=== PATIENT | female | born 1935 | race Caucasian/White ===

== ENCOUNTER 2017-06-13 23:13 | Inpatient (IN) | payer OTHER ==
[~2017-06-13] VITALS: Ht 165.1 cm; Wt 64.9 kg
[~2017-06-13 23:13] MED LIST: ALPR0.5T6 PO; ASPI-612 PO; ATOR20TA58 PO; FAMO20TA5 PO; GABA-585 PO; GARL400T PO; LOSA100T6 PO; METO-269 PO; PROAIR HFA8.5 GM INH; UBID1CAP41 PO; VITA1TAB19 PO
[2017-06-13 23:34] LABS: BASO # 0.1 x10^3/uL (0.0-0.2); BASO % 1 % (0-3); EOS % 2 % (0-3); HEMATOCRIT 40.8 % (36.0-47.0); HEMOGLOBIN 13.7 g/dL (12.0-15.5); LYMPH # 1.5 x10^3/uL (1.0-4.8); LYMPH % 27 % (24-48); MEAN CORPUSCULAR HEMOGLOBIN 32 pg (25-35); MEAN CORPUSCULAR HGB CONC 34 g/dL (31-37); MEAN CORPUSCULAR VOLUME 94 fL (79-100); MONO % 12 % (0-9); NEUT % 58 % (31-73); PLATELET COUNT 252 x10^3/uL (140-400); RED BLOOD COUNT 4.34 x10^6/uL (3.50-5.40); RED CELL DISTRIBUTION WIDTH 13.9 % (11.5-14.5); WHITE BLOOD COUNT 5.3 x10^3/uL (4.0-11.0)
[2017-06-13 23:48] LABS: CALCIUM 9.2 mg/dL (8.5-10.1); CREATININE 0.9 mg/dL (0.6-1.0); GFR 59.9; POTASSIUM 4.1 mmol/L (3.5-5.1)
[2017-06-13 23:54] LABS: ALBUMIN 3.9 g/dL (3.4-5.0); ALBUMIN/GLOBULIN RATIO 1.1 (1.0-1.7); TOTAL BILIRUBIN 0.4 mg/dL (0.2-1.0); TOTAL PROTEIN 7.6 g/dL (6.4-8.2)
[2017-06-14] MEDS ORDERED: ONDANSETRON PF 4 MG/2 ML VIAL. ONE (00:09)
[2017-06-14] MEDS ORDERED: ONDANSETRON PF 4 MG/2 ML VIAL. IV ONE (00:30)
[2017-06-14] MEDS ORDERED: ACETAMINOPHEN 325 MG TABLET. PO PRN (01:30)
[2017-06-14] MEDS ORDERED: MORPHINE SULFATE 2 MG/ML DISP.SYRIN. IV PRN (01:30)
[2017-06-14] MEDS ORDERED: ONDANSETRON PF 4 MG/2 ML VIAL. IV PRN (01:30)
[2017-06-14] MEDS ORDERED: NITROGLYCERIN SUBLINGUAL 0.4 MG BOTTLE OF 25. SL PRN (01:30)
[2017-06-14] MEDS ORDERED: ONDA4TAB10 SL (02:40)
--- NOTE | 2017-06-14 02:41 | PHYS DOC ---
Past Medical History Past Medical History: Anxiety, Cancer, High Cholesterol, Hypertension, NE, Other Additional Past Medical Histor: uterine cancer, renal insufficiency, Past Surgical History: Hysterectomy, Other Additional Past Surgical Histo: PTCA W/ STENTS X3 2008 Alcohol Use: None Drug Use: None Adult General Chief Complaint Chief Complaint: CHEST PAIN HPI HPI Patient is a 81 year old female with history significant for coronary artery disease in the past presents here today complaining of midsternal chest pressure. She reports that it started approximately 10 PM it's been intermittent in nature. She reports that started while she was folding close. Patient reports associated shortness of breath. Patient has any radiating pain nausea vomiting. Patient denies any diaphoresis. Patient has any fevers shakes chills. Patient reports her last heart attack her symptoms were only vomiting at that time. Patient reports she does not smoke drink or do any drugs. Patient reports she has a history of hypertension coronary disease. Patient has any diabetes liver longer kidney problems. Patient reports she had an NE back in 1999 and has had 3 stents. Patient reports she's had GI problems in the past with nausea that she is scheduled for a endoscopy by . Constitutional: Denies fever or chills [] Eyes: Denies change in visual acuity, redness, or eye pain [] HENT: Denies nasal congestion or sore throat [] All other review systems are negative except as documented in the history of present illness portion. Constitutional: Well developed, well nourished, no acute distress, non-toxic appearance. [] HENT: Normocephalic, atraumatic, bilateral external ears normal, oropharynx moist, no oral exudates, nose normal. [] Eyes: PERRLA, EOMI, conjunctiva normal, no discharge. [] Neck: Normal range of motion, no tenderness, supple, no stridor. [] Cardiovascular:Heart rate regular rhythm, Lungs & Thorax: Bilateral breath sounds clear to auscultation [] Abdomen: Bowel sounds normal, soft, no tenderness, no masses, no pulsatile masses. [] Skin: Warm, dry, no erythema, no rash. [] Back: No tenderness, no CVA tenderness. [] Extremities: No tenderness, no cyanosis, no clubbing, ROM intact, no edema. [] Neurologic: Alert and oriented X 3, normal motor function, normal sensory function, no focal deficits noted. [] Psychologic: Affect normal, judgement normal, mood normal. [] Patient's ER hospital course was significant for normal labs. Normal EKG. Chest x-ray was unremarkable. EKG revealed normal sinus rhythm with nonspecific ST-T wave abnormalities with no evidence of ST elevation NE. Revealed normal heart size no infiltrates or effusions. Interpreted by Dr. Osei. Troponin CBC chemistry all within normal limits. Assessment and plan. This is a 7-year-old female who presents here today with anginal type symptoms. Patient has a significant cardiac history. Despite normal labs and feel the patient needs to be admitted for further cardiac evaluation. I had a long discussion with the patient and she has initially agreed to be admitted to the hospital however at 2:30 AM the patient change her mind informed the nurse that she wants to be discharged and will sign out AGAINST MEDICAL ADVICE. She is requesting a prescription for Zofran which we will supply for her. Current Medications Current Medications Current Medications Medications (Trade) Dose Ordered Sig/Bo Start Time Stop Time Status Last Admin Dose Admin Ondansetron HCl (Zofran) 4 mg STK-MED ONCE 06/14/17 00:09 06/14/17 00:10 DC Allergies Allergies Allergies Coded Allergies Type Severity Reaction Last Updated Verified codeine Allergy Intermediate 09/22/16 Yes Current Patient Data Vital Signs Vital Signs Date Time Temp Pulse Resp B/P (MAP) Pulse Ox O2 Delivery O2 Flow Rate FiO2 06/14/17 00:42 66 141/80 (100) 96 Room Air 06/13/17 23:19 97.5 20 97.5 Lab Values Laboratory Tests Test 06/13/17 23:23 White Blood Count 5.3 x10^3/uL (4.0-11.0) Red Blood Count 4.34 x10^6/uL (3.50-5.40) Hemoglobin 13.7 g/dL (12.0-15.5) Hematocrit 40.8 % (36.0-47.0) Mean Corpuscular Volume 94 fL (79-100) Mean Corpuscular Hemoglobin 32 pg (25-35) Mean Corpuscular Hemoglobin Concent 34 g/dL (31-37) Red Cell Distribution Width 13.9 % (11.5-14.5) Platelet Count 252 x10^3/uL (140-400) Neutrophils (%) (Auto) 58 % (31-73) Lymphocytes (%) (Auto) 27 % (24-48) Monocytes (%) (Auto) 12 % (0-9) H Eosinophils (%) (Auto) 2 % (0-3) Basophils (%) (Auto) 1 % (0-3) Neutrophils # (Auto) 3.1 x10^3uL (1.8-7.7) Lymphocytes # (Auto) 1.5 x10^3/uL (1.0-4.8) Monocytes # (Auto) 0.7 x10^3/uL (0.0-1.1) Eosinophils # (Auto) 0.1 x10^3/uL (0.0-0.7) Basophils # (Auto) 0.1 x10^3/uL (0.0-0.2) Sodium Level 135 mmol/L (136-145) L Potassium Level 4.1 mmol/L (3.5-5.1) Chloride Level 98 mmol/L (98-107) Carbon Dioxide Level 28 mmol/L (21-32) Anion Gap 9 (6-14) Blood Urea Nitrogen 16 mg/dL (7-20) Creatinine 0.9 mg/dL (0.6-1.0) Estimated GFR (Cockcroft-Gault) 59.9 BUN/Creatinine Ratio 18 (6-20) Glucose Level 114 mg/dL (70-99) H Calcium Level 9.2 mg/dL (8.5-10.1) Total Bilirubin 0.4 mg/dL (0.2-1.0) Aspartate Amino Transferase (AST) 21 U/L (15-37) Alanine Aminotransferase (ALT) 20 U/L (14-59) Alkaline Phosphatase 99 U/L (46-116) Troponin I Quantitative < 0.017 ng/mL (0.000-0.055) PS-Ohp-W-Type Natriuretic Peptide 160 pg/mL (0-449) Total Protein 7.6 g/dL (6.4-8.2) Albumin 3.9 g/dL (3.4-5.0) Albumin/Globulin Ratio 1.1 (1.0-1.7) Laboratory Tests 06/13/17 23:23 Laboratory Tests 06/13/17 23:23 EKG EKG [] Radiology/Procedures Radiology/Procedures [] Course & Med Decision Making Course & Med Decision Making Pertinent Labs and Imaging studies reviewed. (See chart for details) [] Dragon Disclaimer Dragon Disclaimer This electronic medical record was generated, in whole or in part, using a voice recognition dictation system. Departure Departure Impression: Primary Impression: Chest pain Additional Impressions: Nausea Unstable angina Disposition: ADMITTED INPATIENT Admitting Physician: Aleyda Ram Condition: STABLE Referrals: NATALIE KENNEY MD (PCP) Patient Instructions: Angina Scripts Ondansetron (ZOFRAN ODT) 4 Mg Tab.rapdis 1 TAB SL Q6HRS Y for NAUSEA, #12 TAB Prov: ELEUTERIO TIWARI MD 06/14/17 Problem Qualifiers ELEUTERIO TIWARI MD Jun 14, 2017 02:40
[2017-06-14 03:00] VITALS: BP 159/91
[2017-06-14] MEDS ORDERED: FURO20TA3 PO (03:36)
[2017-06-14] MEDS ORDERED: MAGN400C PO (03:36)
--- NOTE | 2017-06-14 06:15 | ACF ---
Admission Forms Criteria CHEST PAIN Clinical Indications for Admission to Inpatient Care (Place 'X' for any and all applicable criteria): Admission is indicated for chest pain and ANY ONE of the following(1)(2)(3)(4)(5 ): [ ]I. Angina with acute coronary syndrome (Also use Myocardial Infarction or Angina guideline) [ ]II. Hemodynamic instability [ ]III. Angina needing acute intervention as indicated by ALL of the following( 11)(12): [ ]a) Unstable angina is present as indicated by angina that is ANY ONE of the following: [ ]i) New onset [ ]ii) Nocturnal [ ]iii) Prolonged at rest [ ]iv) Progressive [ ]b) Angina warrants acute intervention as indicated by ANY ONE of the following: [ ]i) Recurrent angina (e.g, not responding as previously to treatment) [ ]ii) Angina at rest or with low-level activities despite initial medical therapy [ ]iii) New or presumably new ST-segment depression on ECG [ ]iv) Signs or symptoms of heart failure (eg, dyspnea, pulmonary edema) [ ]v) New or worsening mitral regurgitation [ ]vi) Hemodynamic instability [ ]vii) Dangerous arrhythmia (eg, sustained ventricular tachycardia) [ ]viii) History of percutaneous coronary intervention within 6 months [ ]ix) History of coronary artery bypass graft surgery [ ]x) MARLEE risk score of 2 or greater[A] [ ]xi) History of Diabetes(14) [ ]xii) High-risk cardiac ischemia findings on noninvasive testing (e.g, echocardiogram, treadmill testing, nuclear scan) [ ]xiii) Chronic renal insufficiency (ie, estimated GFR less than 60 mL/min/1.732m) [ ]xiv) Left ventricular ejection fraction less than 40% [ ]IV. Evidence of GA (eg, cardiac biomarkers positive, ST-segment elevation on ECG) also use Myocardial Infarction Criteria Form. [ ]V. Pulmonary edema [ ]. Respiratory distress [ ]VII. Chest pain indicative of serious diagnosis other than coronary artery disease (eg, aortic dissection) [ ]VIII. Contraindications and/or Inappropriate clinical situations for Observational Care in patients with Chest Pain, when ANY ONE of the following is required: [ ]a) Patient with risk factor for pulmonary embolism, acute coronary syndrome and myocardial infarction (18) [ ]b) Patient with Pulmonary embolism require an average LOS of 4.3 days, therefore emergency department observation management is inappropriate 18,23 [ ]c) Painful condition/s in the elderly, have the highest rate of recidivism after emergency department observation management (10.8%) 20,21,22 [ ]d) Elevated cardiac biomarker requires intensive and exhaustive care (19) [X]IX. General contraindications and/or Inappropriate clinical situations for Observational Care in patients with Chest Pain, when ANY ONE of the following is required: [X]a) Prediction of prolongation of LOS based on ANY ONE of the following may be considered as a contraindication for observational care 2, 3, 4, 5, 6, 7, 8, 9, 10, 11 [X]i) Age > 65 yrs. [ ]ii) Patient arriving by ambulance [ ]iii) Patient with high acuity [ ]iv) Patient requiring vital sign monitoring [ ]v) Patient on IV medication [ ]b) Systolic blood pressures 180mmHg 3,12 [ ]c) Patient with altered mental status including delirium and other alteration of consciousness, (3) [ ]d) Patient whose discharge disposition will be to a long term home or rehabilitation home should not be managed in Emergency Department Observation Unit. CMS rule requires 3 days hospital stay before such placement. 3,13 [ ]e) Patient with failure to thrive due to broad array of etiologies 3,16,17 [ ]f) Inability to ambulate 3,14 Extended stay beyond goal length of stay may be needed for (1)(28): [ ]a) Specific condition diagnosed after evaluation (eg, pulmonary embolism, aortic dissection) [ ]b) Unstable angina [ ]c) Continued suspicion of acute coronary syndrome with inability to complete needed cardiac evaluation (eg, patient clinically unable to undergo stress testing) [ ]d) Myocardial infarction (Contents from ANGINA and CHEST PAIN clinical indications for admission to inpatient care have been integrated in this form) The original [facility] content created by [employer] has been revised. The portions of the content which have been revised are identified through the use of italic text or in bold, and [employer] [facility] has neither reviewed nor approved the modified material. All other unmodified content is copyright [employer] [facility] [facility]. Please see references footnoted in the original [facility] [employer] edition 2016 Admission Criteria Met?: Yes SHEKHAR SAUL Jun 14, 2017 06:15
--- NOTE | 2017-06-14 06:48 | EKG ---
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
[2017-06-14 07:00] VITALS: BP 142/73
--- NOTE | 2017-06-14 07:58 | RAD ---
Portable chest, 06/13/2017: History: Chest pain Comparison is made to a study from 09/20/2016. The heart size is normal. There are prominent calcified mediastinal and hilar lymph nodes. There is calcific plaquing of the aorta. There appears to be a coronary artery stent projected over the right side of the heart. The pulmonary vascularity is normal. A calcified granuloma is present in the right upper chest. There is mild unchanged prominence of the pulmonary markings probably due to fibrosis. No acute infiltrates are seen. There is no evidence of pleural fluid. IMPRESSION: 1. Chronic findings as described above. 2. No acute cardiopulmonary abnormality is detected.
--- NOTE | 2017-06-14 09:14 | PDOC2 ---
GISELLA MCNAIR INSURANCE ADMINISTRATIVE ASSISTANT 06/14/17 0914: CARDIAC CONSULT DATE OF CONSULT Date of Consult DATE: 06/14/17 TIME: 09:09 REASON FOR CONSULT Reason for Consult: Chest pain REFERRING PHYSICIAN Referring Physician: Aj SOURCE Source: Chart review, Patient HISTORY OF PRESENT ILLNESS HISTORY OF PRESENT ILLNESS This is an anxious 81 yo female admitted for complains of persistent nausea. Reports that in the last 3 weeks she has been having intermittent nausea and the last time she vomited was Monday. There was no hematemesis. She has been compensating with increasing her fluid intake. Repeatedly denies having any chest pain but her bilateral lower rib cage area hurts sometimes. She has been intermittently retching. She does howevere have been having episodes of dizziness when upright and even on occasion when she bends over and stand back up. sometimes almost passing out. She has been feeling weak but her pappetite has not been up to par due to her nausea. She has been having episodes to which she feels like her food has not been going down completely. She does have some JOSE but to her description this has not change and this has been her baseline ever since she had her past heart attack. Presently she is anxious and worried that she got a [id number] bill from her previous stay. Denies any recent falls, injury, syncope, tinnitus, or palpitations. PAST MEDICAL HISTORY Past Medical History Cardiovascular: CAD, HTN, Hyperlipidemia Pulmonary: COPD CENTRAL NERVOUS SYSTEM: Migraine GI: GERD Heme/Onc: Cancer (uterine) Psych: Anxiety Musculoskeletal: Osteoarthritis Rheumatologic: No pertinent hx Infectious disease: No pertinent hx ENT: No pertinent hx Renal/: No pertinent hx Endocrine: No pertinent hx Dermatology: Basal cell PAST SURGICAL HISTORY Past Surgical History Mohs surgery, Nasal Reconstructive Surgery, PCI/stent x3 10 yrs ago, Hysterectomy FAMILY HISTORY Family History noncontributory SOCIAL HISTORY Social History Smoke: No ALCOHOL: none Drugs: None Lives: Alone CURRENT MEDICATIONS CURRENT MEDICATIONS Current Medications Medications (Trade) Dose Ordered Sig/Bo Route PRN Reason Start Time Stop Time Status Last Admin Dose Admin Ondansetron HCl (Zofran) 4 mg 1X ONCE IV 06/14/17 00:30 06/14/17 00:31 DC 06/14/17 00:12 Ondansetron HCl (Zofran) 4 mg PRN Q8HRS PRN IV NAUSEA/VOMITING 06/14/17 01:30 06/15/17 01:29 06/14/17 05:28 ALLERGIES ALLERGIES: Coded Allergies: codeine (Verified Allergy, Intermediate, 09/22/16) ROS Review of System 14 point ROS evaluated with pertinent positives noted per HPI PHYSICAL EXAM General: Alert, Oriented X3, Cooperative, No acute distress HEENT: Atraumatic, Mucous membr. moist/pink Lungs: Clear to auscultation, Normal air movement Heart: Regular rate (SR), Normal S1, Normal S2, Other Abdomen: Soft, No tenderness Extremities: No cyanosis, Other Skin: No breakdown, No significant lesion Neuro: Normal speech, Sensation intact Psych/Mental Status: Mental status NL, Mood NL MUSCULOSKELETAL: Osteoarthritic changes both hands VITALS VITALS Vital Signs Date Time Temp Pulse Resp B/P (MAP) Pulse Ox O2 Delivery O2 Flow Rate FiO2 06/14/17 07:00 97.7 69 18 142/73 (96) 97 Room Air 97.7 LABS Lab: Laboratory Tests Test 06/13/17 23:23 06/14/17 07:40 White Blood Count 5.3 x10^3/uL (4.0-11.0) Red Blood Count 4.34 x10^6/uL (3.50-5.40) Hemoglobin 13.7 g/dL (12.0-15.5) Hematocrit 40.8 % (36.0-47.0) Mean Corpuscular Volume 94 fL (79-100) Mean Corpuscular Hemoglobin 32 pg (25-35) Mean Corpuscular Hemoglobin Concent 34 g/dL (31-37) Red Cell Distribution Width 13.9 % (11.5-14.5) Platelet Count 252 x10^3/uL (140-400) Neutrophils (%) (Auto) 58 % (31-73) Lymphocytes (%) (Auto) 27 % (24-48) Monocytes (%) (Auto) 12 % (0-9) Eosinophils (%) (Auto) 2 % (0-3) Basophils (%) (Auto) 1 % (0-3) Neutrophils # (Auto) 3.1 x10^3uL (1.8-7.7) Lymphocytes # (Auto) 1.5 x10^3/uL (1.0-4.8) Monocytes # (Auto) 0.7 x10^3/uL (0.0-1.1) Eosinophils # (Auto) 0.1 x10^3/uL (0.0-0.7) Basophils # (Auto) 0.1 x10^3/uL (0.0-0.2) Sodium Level 135 mmol/L (136-145) Potassium Level 4.1 mmol/L (3.5-5.1) Chloride Level 98 mmol/L (98-107) Carbon Dioxide Level 28 mmol/L (21-32) Anion Gap 9 (6-14) Blood Urea Nitrogen 16 mg/dL (7-20) Creatinine 0.9 mg/dL (0.6-1.0) Estimated GFR (Cockcroft-Gault) 59.9 BUN/Creatinine Ratio 18 (6-20) Glucose Level 114 mg/dL (70-99) Calcium Level 9.2 mg/dL (8.5-10.1) Total Bilirubin 0.4 mg/dL (0.2-1.0) Aspartate Amino Transf (AST/SGOT) 21 U/L (15-37) Alanine Aminotransferase (ALT/SGPT) 20 U/L (14-59) Alkaline Phosphatase 99 U/L (46-116) Troponin I Quantitative < 0.017 ng/mL (0.000-0.055) < 0.017 ng/mL (0.000-0.055) FE-Gle-V-Type Natriuretic Peptide 160 pg/mL (0-449) Total Protein 7.6 g/dL (6.4-8.2) Albumin 3.9 g/dL (3.4-5.0) Albumin/Globulin Ratio 1.1 (1.0-1.7) ECHOCARDIOGRAM ECHOCARDIOGRAM <Conclusion> The left ventricular systolic function is normal. The Ejection Fraction is estimated at 55-60%. There is normal LV segmental wall motion. Trace to mild mitral regurgitation. Trace tricuspid regurgitation. The PA pressure was estimated at 26 mmHg. There is no evidence of significant pericardial effusion. DATE: 06/12/16 1235 STRESS TEST STRESS TEST Conclusion 1. No EKG evidence of stressed induced ischemia. 2. Nuclear imaging shows no reversible ischemia or infarct. 3. Normal left ventricular systolic function with an ejection fraction of 67%. 4. Low risk Lexiscan nuclear stress test. DATE: 09/22/16 1452 ASSESSMENT/PLAN ASSESSMENT/PLAN 1. Atypical chest pain: lower rib cage discomfort from retching. Noncardiac. Recent MPI neg. 2. Persistent nausea with possible esophageal stricture: due for EGD 06/[address] Jayme Marcus 3. Presyncope: likely vasovagal episode. No vertigo. No bradycardia episodes. 4. Pulmonary fibrosis? 5. HTN: controlled 6. HLP 7. CAD: PCI/stent in the past. 8. GERD 9. Anxiety Recommendations 1. No further cardiac workup 2. Will consider for outpt event monitor if pt agrees. 3. Consider GI consult. 4. Continue home secondary prevention measures Problems: CASH ROSS MD 06/14/17 2221: CARDIAC CONSULT ALLERGIES ALLERGIES: Coded Allergies: codeine (Verified Allergy, Intermediate, 09/22/16) ASSESSMENT/PLAN ASSESSMENT/PLAN Pt. seen and examined. 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 81 y.o w/ non-cardiac chest pain. Ok to DC from CV perspective. Problems: GISELLA MCNAIR APRN Jun 14, 2017 09:14 CASH ROSS MD Jun 14, 2017 22:21
[2017-06-14 09:58] LABS: CHOLESTEROL/HDL RATIO 2.2
[2017-06-14] MEDS ORDERED: ONDANSETRON ODT 4 MG TAB.RAPDIS. PO PRN (10:45)
[2017-06-14] MEDS ORDERED: NON FORMULARY ITEM (Albuterol Sulfate (Proair Hfa Inhaler) 2 PUFF) INH PRN (10:45)
[2017-06-14 10:56] VITALS: BP 168/74
[2017-06-14] MEDS ORDERED: ALPRAZolam 0.5 MG TABLET PO SCH (11:00)
[2017-06-14] MEDS ORDERED: ALBUTEROL SULFATE 2.5 MG/3 ML NEBU. NEB PRN (11:00)
[2017-06-14] MEDS: METOPROLOL SUCC 24HR ER 50 MG TAB.ER.24H. PO SCH ×2 (11:00→11:04)
[2017-06-14] MEDS: FUROSEMIDE 20 MG TABLET PO SCH ×2 (11:00→11:04)
[2017-06-14] MEDS ORDERED: FAMOTIDINE 20 MG TABLET. PO SCH (11:00)
[2017-06-14] MEDS ORDERED: VITAMIN B COMPLEX TABLET. PO SCH (11:00)
[2017-06-14] MEDS ORDERED: MAGNESIUM OXIDE 400 MG TABLET PO SCH (11:00)
[2017-06-14] MEDS ORDERED: LOSARTAN POTASSIUM 50 MG TABLET. PO SCH (11:00)
[2017-06-14] MEDS ORDERED: ASPIRIN ENTERIC COATED 81 MG TABLET.DR. PO SCH (11:00)
[2017-06-14 11:03] VITALS: BP 168/74
--- NOTE | 2017-06-14 13:22 | PDOC1 ---
History and Physical Date of Admission Date of Admission 06/14/17 Identification/Chief Complaint Chief Complaint dysphagia, chest pain Problems: Source Source: Chart review, Patient History of Present Illness History of Present Illness HPI HPI Patient is a 81 year old female with history significant for coronary artery disease in the past presents here today complaining of midsternal chest pressure. 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 VERY anxious ,nurse at bedside helped to get some infomation. Pt cont randomly talked about what happened 8 years ago with gi issues and NE with 3 stents. She said she has been feeling sick for 3 weeks, nausea, feels food stuck in the esophageous after eating, then feels vertigo, but refused to talk to me for details. She is following GI dr. Marcus for EGD 06/2017. . Patient reports she has a history of hypertension coronary disease. Patient has any diabetes liver longer kidney problems. Patient reports she had an NE back in 1999 and has had 3 stents. She said she lives alone, wants to go home NOW. Past Medical History Cardiovascular: CAD, HTN, Hyperlipidemia Pulmonary: COPD CENTRAL NERVOUS SYSTEM: Migraine GI: GERD Heme/Onc: Cancer Hepatobiliary: No pertinent hx Psych: Anxiety Rheumatologic: No pertinent hx Infectious disease: No pertinent hx Renal/: No pertinent hx Endocrine: No pertinent hx Past Surgical History Past Surgical History: Hysterectomy Family History Family History: Hypertension Social History Smoke: No ALCOHOL: none Drugs: None Current Problem List Problem List Problems Medical Problems: (1) Chest pain Status: Acute (2) Nausea Status: Acute (3) Unstable angina Status: Acute Current Medications Current Medications Current Medications Medications (Trade) Dose Ordered Sig/Bo Start Time Stop Time Status Last Admin Dose Admin Acetaminophen (Tylenol) 650 mg PRN Q4HRS PRN 06/14/17 01:30 06/15/17 01:29 Albuterol Sulfate (Ventolin Neb Soln) 2.5 mg PRN Q4HRS PRN 06/14/17 11:00 Alprazolam (Xanax) 0.5 mg BID 06/14/17 11:00 06/14/17 11:03 0.5 MG Aspirin (Ecotrin) 81 mg DAILYWBKFT 06/14/17 11:00 06/14/17 11:04 81 MG Atorvastatin Calcium (Lipitor) 20 mg QHS 06/14/17 21:00 Famotidine (Pepcid) 20 mg DAILY 06/14/17 11:00 06/14/17 11:04 20 MG Furosemide (Lasix) 20 mg DAILY 06/14/17 11:00 Losartan Potassium (Cozaar) 100 mg DAILY 06/14/17 11:00 06/14/17 11:03 100 MG Magnesium Oxide (Magnesium Oxide) 400 mg BID 06/14/17 11:00 06/14/17 11:03 400 MG Metoprolol Succinate (Toprol Xl) 50 mg DAILY 06/14/17 11:00 Morphine Sulfate 2 mg PRN Q2HR PRN 06/14/17 01:30 06/15/17 01:29 Nitroglycerin (Nitrostat) 0.4 mg PRN Q5MIN PRN 06/14/17 01:30 06/15/17 01:29 Non-Formulary Medication 2 puff Q4HRS PRN 06/14/17 10:45 06/14/17 10:54 DC Ondansetron HCl (Zofran Odt) 4 mg PRN Q6HRS PRN 06/14/17 10:45 Ondansetron HCl (Zofran) 4 mg PRN Q8HRS PRN 06/14/17 01:30 06/15/17 01:29 06/14/17 05:28 4 MG Vitamin B Complex (Chad B) 1 tab DAILY 06/14/17 11:00 Allergies Allergies Allergies Coded Allergies Type Severity Reaction Last Updated Verified codeine Allergy Intermediate 09/22/16 Yes ROS Review of System CONSTITUTIONAL: No fever or chills EYES: No recent changes SKIN: No rash or itching CARDIOVASCULAR: No chest pain, syncope, palpitations, or edema RESPIRATORY: No SOB or cough GASTROINTESTINAL: No nausea, vomiting or abdominal pain NEUROLOGICAL: No headaches or weakness ENDOCRINE: No cold or heat intolerance GENITOURINARY: No urgency or frequency of urination MUSCULOSKELETAL: No back pain or joint pain LYMPHATICS: No enlarged lymph nodes PSYCHIATRIC: No anxiety or depression Physical Exam Physical Exam GEN.: No apparent distress. Alert and oriented.very anxious. HEENT: Head is normocephalic, atraumatic NECK: Supple. LUNGS: Clear to auscultation. HEART: RRR, S1, S2 present. Peripheral pulses intact ABDOMEN: Soft, nontender. Positive bowel sounds. EXTREMITIES: Without any cyanosis. NEUROLOGIC: Normal speech, normal tone PSYCHIATRIC: Normal affect, normal mood. SKIN: No ulcerations Vitals Vitals Vital Signs Date Time Temp Pulse Resp B/P (MAP) Pulse Ox O2 Delivery O2 Flow Rate FiO2 06/14/17 12:03 97 Room Air 06/14/17 11:03 68 168/74 06/14/17 10:56 98.0 18 98.0 Labs Labs Laboratory Tests Test 06/13/17 23:23 06/14/17 07:40 White Blood Count 5.3 x10^3/uL (4.0-11.0) Red Blood Count 4.34 x10^6/uL (3.50-5.40) Hemoglobin 13.7 g/dL (12.0-15.5) Hematocrit 40.8 % (36.0-47.0) Mean Corpuscular Volume 94 fL (79-100) Mean Corpuscular Hemoglobin 32 pg (25-35) Mean Corpuscular Hemoglobin Concent 34 g/dL (31-37) Red Cell Distribution Width 13.9 % (11.5-14.5) Platelet Count 252 x10^3/uL (140-400) Neutrophils (%) (Auto) 58 % (31-73) Lymphocytes (%) (Auto) 27 % (24-48) Monocytes (%) (Auto) 12 % (0-9) Eosinophils (%) (Auto) 2 % (0-3) Basophils (%) (Auto) 1 % (0-3) Neutrophils # (Auto) 3.1 x10^3uL (1.8-7.7) Lymphocytes # (Auto) 1.5 x10^3/uL (1.0-4.8) Monocytes # (Auto) 0.7 x10^3/uL (0.0-1.1) Eosinophils # (Auto) 0.1 x10^3/uL (0.0-0.7) Basophils # (Auto) 0.1 x10^3/uL (0.0-0.2) Sodium Level 135 mmol/L (136-145) Potassium Level 4.1 mmol/L (3.5-5.1) Chloride Level 98 mmol/L (98-107) Carbon Dioxide Level 28 mmol/L (21-32) Anion Gap 9 (6-14) Blood Urea Nitrogen 16 mg/dL (7-20) Creatinine 0.9 mg/dL (0.6-1.0) Estimated GFR (Cockcroft-Gault) 59.9 BUN/Creatinine Ratio 18 (6-20) Glucose Level 114 mg/dL (70-99) Calcium Level 9.2 mg/dL (8.5-10.1) Total Bilirubin 0.4 mg/dL (0.2-1.0) Aspartate Amino Transf (AST/SGOT) 21 U/L (15-37) Alanine Aminotransferase (ALT/SGPT) 20 U/L (14-59) Alkaline Phosphatase 99 U/L (46-116) Troponin I Quantitative < 0.017 ng/mL (0.000-0.055) < 0.017 ng/mL (0.000-0.055) NS-Ebd-W-Type Natriuretic Peptide 160 pg/mL (0-449) Total Protein 7.6 g/dL (6.4-8.2) Albumin 3.9 g/dL (3.4-5.0) Albumin/Globulin Ratio 1.1 (1.0-1.7) Triglycerides Level 50 mg/dL (0-150) Cholesterol Level 179 mg/dL (0-200) LDL Cholesterol, Calculated 87 mg/dL (0-100) VLDL Cholesterol, Calculated 10 mg/dL (0-40) Non-HDL Cholesterol Calculated 97 mg/dL (0-129) HDL Cholesterol 82 mg/dL (40-60) Cholesterol/HDL Ratio 2.2 Laboratory Tests Test 06/13/17 23:23 06/14/17 07:40 White Blood Count 5.3 x10^3/uL (4.0-11.0) Red Blood Count 4.34 x10^6/uL (3.50-5.40) Hemoglobin 13.7 g/dL (12.0-15.5) Hematocrit 40.8 % (36.0-47.0) Mean Corpuscular Volume 94 fL (79-100) Mean Corpuscular Hemoglobin 32 pg (25-35) Mean Corpuscular Hemoglobin Concent 34 g/dL (31-37) Red Cell Distribution Width 13.9 % (11.5-14.5) Platelet Count 252 x10^3/uL (140-400) Neutrophils (%) (Auto) 58 % (31-73) Lymphocytes (%) (Auto) 27 % (24-48) Monocytes (%) (Auto) 12 % (0-9) Eosinophils (%) (Auto) 2 % (0-3) Basophils (%) (Auto) 1 % (0-3) Neutrophils # (Auto) 3.1 x10^3uL (1.8-7.7) Lymphocytes # (Auto) 1.5 x10^3/uL (1.0-4.8) Monocytes # (Auto) 0.7 x10^3/uL (0.0-1.1) Eosinophils # (Auto) 0.1 x10^3/uL (0.0-0.7) Basophils # (Auto) 0.1 x10^3/uL (0.0-0.2) Sodium Level 135 mmol/L (136-145) Potassium Level 4.1 mmol/L (3.5-5.1) Chloride Level 98 mmol/L (98-107) Carbon Dioxide Level 28 mmol/L (21-32) Anion Gap 9 (6-14) Blood Urea Nitrogen 16 mg/dL (7-20) Creatinine 0.9 mg/dL (0.6-1.0) Estimated GFR (Cockcroft-Gault) 59.9 BUN/Creatinine Ratio 18 (6-20) Glucose Level 114 mg/dL (70-99) Calcium Level 9.2 mg/dL (8.5-10.1) Total Bilirubin 0.4 mg/dL (0.2-1.0) Aspartate Amino Transf (AST/SGOT) 21 U/L (15-37) Alanine Aminotransferase (ALT/SGPT) 20 U/L (14-59) Alkaline Phosphatase 99 U/L (46-116) Troponin I Quantitative < 0.017 ng/mL (0.000-0.055) < 0.017 ng/mL (0.000-0.055) OD-Urz-P-Type Natriuretic Peptide 160 pg/mL (0-449) Total Protein 7.6 g/dL (6.4-8.2) Albumin 3.9 g/dL (3.4-5.0) Albumin/Globulin Ratio 1.1 (1.0-1.7) Triglycerides Level 50 mg/dL (0-150) Cholesterol Level 179 mg/dL (0-200) LDL Cholesterol, Calculated 87 mg/dL (0-100) VLDL Cholesterol, Calculated 10 mg/dL (0-40) Non-HDL Cholesterol Calculated 97 mg/dL (0-129) HDL Cholesterol 82 mg/dL (40-60) Cholesterol/HDL Ratio 2.2 VTE Prophylaxis Ordered VTE Prophylaxis Devices: Yes VTE Pharmacological Prophylaxi: Yes Assessment/Plan Assessment/Plan chest pain with gi issues, dysphagia h/o CAD with 3 stents htn hld h/o uterine Ca post sx severe anxiety plan: card consulted, neg CE. no intervention pt wants leave now, refused to talk to me. dc home now. pt has an appt with dr. Marcus in 2 weeks. MIKE MORRISSEY MD Jun 14, 2017 13:22
--- NOTE | 2017-06-14 13:23 | PDOC3 ---
Discharge Summary [facility] Date of Admission: Jun 14, 2017 Discharge Date: Jun 14, 2017 Admitting Diagnosis chest pain with gi issues, dysphagia h/o CAD with 3 stents htn hld h/o uterine Ca post sx severe anxiety Problems: Final Diagnosis CONSULTS card Brief Hospital Course Patient is a 81 year old female with history significant for coronary artery disease in the past presents here today complaining of midsternal chest pressure. 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 VERY anxious ,nurse at bedside helped to get some infomation. Pt cont randomly talked about what happened 8 years ago with gi issues and KS with 3 stents. She said she has been feeling sick for 3 weeks, nausea, feels food stuck in the esophageous after eating, then feels vertigo, but refused to talk to me for details. She is following GI dr. Marcus for EGD 06/2017. . Patient reports she has a history of hypertension coronary disease. Patient has any diabetes liver longer kidney problems. Patient reports she had an KS back in 1999 and has had 3 stents. She said she lives alone, wants to go home NOW. card consulted, neg CE. no intervention pt wants leave now, kept saying ERP told her she could leave today, refused to talk to me for details of her symtoms, i got some of above with nurse help at bedside. dc home now. pt has an appt with dr. Marcus in 2 weeks. dc time 35min . Patient History: FH: aneurysm FH: diabetes mellitus FH: heart attack Problems: Disposition home CONDITION AT DISCHARGE: Stable Diet cardiac Scheduled Alprazolam (Alprazolam), 1 TAB PO BID, (Reported) Aspirin (Aspirin Ec), 81 MG PO DAILYWBKFT Atorvastatin Calcium (Atorvastatin Calcium), 1 TAB PO DAILY, (Reported) Famotidine (Famotidine), 20 MG PO BID, (Reported) Furosemide (Furosemide), 1 TAB PO DAILY, (Reported) Losartan Potassium (Losartan Potassium), 100 MG PO DAILY, (Reported) Magnesium Oxide (Magnesium), 1 CAP PO BID, (Reported) Metoprolol Succinate (Toprol Xl), 1 TAB PO DAILY, (Reported) Scheduled PRN Albuterol Sulfate (Proair Hfa Inhaler), 2 PUFF INH Q4HRS PRN for SHORTNESS OF BREATH Ondansetron (Zofran Odt), 1 TAB SL Q6HRS PRN for NAUSEA Miscellaneous Medications Garlic (Daily Garlic Once-A-Day), 400 MG PO, (Reported) Ubidecarenone/Vit E Acetate (Co Q-10 100 Mg Softgel), 1 EACH PO, (Reported) Vitamin B Complex (B Complex), 1 EACH PO, (Reported) Follow Up gi ilana MIKE MORRISSEY MD Jun 14, 2017 13:23
[2017-06-14] MEDS ORDERED: ATORVASTATIN CALCIUM 20 MG TABLET PO SCH (21:00)
== END 2017-06-14 13:25 | disposition home or self-care (01) | DRG 392 ==
LOC: ER 23:13 → 2 SOUTH 06-14 01:25
PROVIDERS: ADMIT Internal Medicine; ATTEND Internal Medicine
DX: R13.10 Dysphagia, unspecified (principal); E11.9 Type 2 diabetes mellitus without complications; E78.00 Pure hypercholesterolemia, unspecified; E78.5 Hyperlipidemia, unspecified; F41.9 Anxiety disorder, unspecified; I10 Essential (primary) hypertension; J44.9 Chronic obstructive pulmonary disease, unspecified; K21.9 Gastro-esophageal reflux disease without esophagitis; G43.909 Migraine, unspecified, not intractable, without status migrainosus; I25.10 Atherosclerotic heart disease of native coronary artery without angina pectoris; M19.90 Unspecified osteoarthritis, unspecified site; Z82.49 Family history of ischemic heart disease and other diseases of the circulatory system; Z85.42 Personal history of malignant neoplasm of other parts of uterus; Z90.710 Acquired absence of both cervix and uterus; Z95.5 Presence of coronary angioplasty implant and graft; I25.2 Old myocardial infarction; Z79.899 Other long term (current) drug therapy; Z79.1 Long term (current) use of non-steroidal anti-inflammatories (NSAID); Z79.2 Long term (current) use of antibiotics; Z88.5 Allergy status to narcotic agent
CPT/HCPCS: 36415; 71010; 80053; 80061; 83880; 84484; 85027; 93005; 94250; 94760; 96374; J2405; 99285-25

== ENCOUNTER → 2019-06-21 | Outpatient (CLI) | payer OTHER ==
[2017-06-19 13:08] VITALS: BP 182/100
[~2019-06-21] MED LIST changes: +ALBU2.5V8 INH; +FURO20TA3 PO; +LOSA100T14 PO; -LOSA100T6 PO; +MAGN400C PO; +METO5TAB PO; +ONDA4TAB10 SL; +ONDA4TAB7 PO; -PROAIR HFA8.5 GM INH; +RANI150T2 PO
--- NOTE | 2019-06-21 16:34 | RAD ---
EXAM: Left lower extremity venous Doppler sonogram. HISTORY: Pain and swelling. TECHNIQUE: Romano scale and color Doppler sonographic evaluation of the left lower extremity veins with spectral waveform analysis was performed. FINDINGS: There is normal color flow, normal compressibility and there are normal spectral waveforms in the common femoral, superficial femoral, popliteal, posterior tibial and greater saphenous veins. IMPRESSION: No Doppler evidence of lower extremity deep venous thrombosis. Electronically signed by: Regina Mandujano MD (06/21/2019 4:31 PM) [place] [id number]
== END | disposition home or self-care (01) ==
LOC: US 16:03
PROVIDERS: ATTEND Family Medicine
DX: M79.89 Other specified soft tissue disorders (principal)
CPT/HCPCS: 93971

== ENCOUNTER 2019-07-08 20:23 | Observation (INO) | payer OTHER ==
[~2019-07-08] VITALS: Ht 162.6 cm; Wt 61.8 kg
[~2019-07-08 20:23] MED LIST changes: -ONDA4TAB7 PO; -RANI150T2 PO
--- NOTE | 2019-07-08 21:25 | PHYS DOC ---
Past Medical History Past Medical History: Anxiety, Cancer, High Cholesterol, Hypertension, SD, Other Additional Past Medical Histor: uterine cancer, renal insufficiency, Past Surgical History: Hysterectomy, Other Additional Past Surgical Histo: PTCA W/ STENTS X3 2008 Alcohol Use: None Drug Use: None Adult General Chief Complaint Chief Complaint: HYPERTENSION HPI HPI Patient is a 83 year old chest pain and tightness comes and goes has had it on and off for sevveral years feels nausea since five pm chest tighthness radiates to neck thought it was nerves. has had issues with bp meds, amlodipine caused leg swelling. thought had some reaction to hctz metop didnt work she tells me. but currently on hctz and losaratan john paulantony rodriguez is pmd on maternity oleave pt tells me sees lynn Review of Systems Review of Systems Constitutional: Denies fever or chills [] Eyes: Denies change in visual acuity, redness, or eye pain [] HENT: Denies nasal congestion or sore throat [] Respiratory: Denies cough or shortness of breath [] Cardiovascular: No additional information not addressed in HPI [] GI: Denies abdominal pain, nausea, vomiting, bloody stools or diarrhea [] : Denies dysuria or hematuria [] Musculoskeletal: Denies back pain or joint pain [] Integument: Denies rash or skin lesions [] Neurologic: Denies headache, focal weakness or sensory changes [] Endocrine: Denies polyuria or polydipsia [] All other systems were reviewed and found to be within normal limits, except as documented in this note. Current Medications Current Medications Current Medications Medications (Trade) Dose Ordered Sig/[facility] Start Time Stop Time Status Last Admin Dose Admin Aspirin (Children'S Aspirin) 324 mg 1X ONCE 07/08/19 22:00 07/08/19 22:01 DC 07/08/19 21:57 324 MG Labetalol HCl (Normodyne Iv Push) 10 mg 1X ONCE 07/08/19 22:00 07/08/19 22:01 DC 07/08/19 21:50 10 MG Nitroglycerin (Nitro-Bid Oint) 1 inch 1X ONCE 07/08/19 22:00 07/08/19 22:01 DC 07/08/19 21:57 1 INCH Nitroglycerin (Nitrostat) 0.4 mg PRN Q5MIN PRN 07/08/19 23:00 07/09/19 22:59 Allergies Allergies Allergies Coded Allergies Type Severity Reaction Last Updated Verified codeine Allergy Intermediate 09/22/16 Yes Physical Exam Physical Exam Constitutional: Well developed, well nourished, no acute distress, non-toxic appearance. [] HENT: Normocephalic, atraumatic, bilateral external ears normal, oropharynx moist, no oral exudates, nose normal. [] Eyes: PERRLA, EOMI, conjunctiva normal, no discharge. [] Neck: Normal range of motion, no tenderness, supple, no stridor. [] Cardiovascular:Heart rate regular rhythm, no murmur [] Lungs & Thorax: Bilateral breath sounds clear to auscultation [] Abdomen: Bowel sounds normal, soft, no tenderness, no masses, no pulsatile masses. [] Skin: Warm, dry, no erythema, no rash. [] Back: No tenderness, no CVA tenderness. [] Extremities: No tenderness, no cyanosis, no clubbing, ROM intact, no edema. [] Neurologic: Alert and oriented X 3, normal motor function, normal sensory function, no focal deficits noted. [] Psychologic: Affect normal, judgement normal, mood ANXIOUS Current Patient Data Vital Signs Vital Signs Date Time Temp Pulse Resp B/P (MAP) Pulse Ox O2 Delivery O2 Flow Rate FiO2 07/08/19 21:57 69 158/76 07/08/19 21:10 98.0 24 96 Room Air 98.0 Lab Values Laboratory Tests Test 07/08/19 21:50 White Blood Count 6.9 x10^3/uL (4.0-11.0) Red Blood Count 3.93 x10^6/uL (3.50-5.40) Hemoglobin 12.6 g/dL (12.0-15.5) Hematocrit 36.0 % (36.0-47.0) Mean Corpuscular Volume 92 fL (79-100) Mean Corpuscular Hemoglobin 32 pg (25-35) Mean Corpuscular Hemoglobin Concent 35 g/dL (31-37) Red Cell Distribution Width 13.6 % (11.5-14.5) Platelet Count 232 x10^3/uL (140-400) Neutrophils (%) (Auto) 78 % (31-73) H Lymphocytes (%) (Auto) 13 % (24-48) L Monocytes (%) (Auto) 7 % (0-9) Eosinophils (%) (Auto) 1 % (0-3) Basophils (%) (Auto) 1 % (0-3) Neutrophils # (Auto) 5.4 x10^3/uL (1.8-7.7) Lymphocytes # (Auto) 0.9 x10^3/uL (1.0-4.8) L Monocytes # (Auto) 0.5 x10^3/uL (0.0-1.1) Eosinophils # (Auto) 0.1 x10^3/uL (0.0-0.7) Basophils # (Auto) 0.1 x10^3/uL (0.0-0.2) Prothrombin Time 12.6 SEC (11.7-14.0) Prothrombin Time INR 1.0 (0.8-1.1) Sodium Level 134 mmol/L (136-145) L Potassium Level 3.9 mmol/L (3.5-5.1) Chloride Level 99 mmol/L (98-107) Carbon Dioxide Level 26 mmol/L (21-32) Anion Gap 9 (6-14) Blood Urea Nitrogen 19 mg/dL (7-20) Creatinine 0.9 mg/dL (0.6-1.0) Estimated GFR (Cockcroft-Gault) 59.7 BUN/Creatinine Ratio 21 (6-20) H Glucose Level 135 mg/dL (70-99) H Calcium Level 8.9 mg/dL (8.5-10.1) Total Bilirubin 0.4 mg/dL (0.2-1.0) Aspartate Amino Transferase (AST) 28 U/L (15-37) Alanine Aminotransferase (ALT) 31 U/L (14-59) Alkaline Phosphatase 80 U/L (46-116) Troponin I Quantitative < 0.017 ng/mL (0.000-0.055) UP-Amc-T-Type Natriuretic Peptide 261 pg/mL (0-449) Total Protein 6.6 g/dL (6.4-8.2) Albumin 3.8 g/dL (3.4-5.0) Albumin/Globulin Ratio 1.4 (1.0-1.7) Laboratory Tests 07/08/19 21:50 Laboratory Tests 07/08/19 21:50 EKG EKG []nsr rate 72 no ischemic changes no stemi. no obviou sischemic changes. Radiology/Procedures Radiology/Procedures [] Impressions: FINDINGS: The cardiomediastinal silhouette and pulmonary vessels are within normal limits. The lung and pleural spaces are clear. IMPRESSION: No acute cardiopulmonary process. Electronically signed by: Adriel Vasquez MD (07/08/2019 10:36 PM) [facility] DICTATED and SIGNED BY: ADRIEL VASQUEZ MD DATE: 07/08/192235 Course & Med Decision Making Course & Med Decision Making Pertinent Labs and Imaging studies reviewed. (See chart for details) 83-year-old female known coronary disease with stents who is presenting with Chest pain in setting of high blood pressure blood pressures in the 200s. We brought that down with some labetalol and nitroglycerin and actually the blood pressure was 140 on reevaluation her pain was better. Given her known stents last stress test was 3 years ago plan to admit. We did briefly touch base with Dr. ODOM , STAFF HERE, who has informed us that Dr. Ailin Rodriguez is on maternity leave and to send her patient's to hospitalist at this time ADMIT TO [facility] PT IS REASSURING. Dragon Disclaimer Dragon Disclaimer This electronic medical record was generated, in whole or in part, using a voice recognition dictation system. Departure Departure Impression: Primary Impression: Chest pain Disposition: ADMITTED INPATIENT Admitting Physician: DESMOND Condition: STABLE Referrals: ISAAK RODRIGUEZ MD (PCP) FRANSISCA BETTS MD Jul 08, 2019 21:25
[2019-07-08 21:59] LABS: BASO # 0.1 x10^3/uL (0.0-0.2); BASO % 1 % (0-3); EOS # 0.1 x10^3/uL (0.0-0.7); EOS % 1 % (0-3); HEMOGLOBIN 12.6 g/dL (12.0-15.5); LYMPH # 0.9 x10^3/uL (1.0-4.8); LYMPH % 13 % (24-48); MEAN CORPUSCULAR HEMOGLOBIN 32 pg (25-35); MEAN CORPUSCULAR HGB CONC 35 g/dL (31-37); MEAN CORPUSCULAR VOLUME 92 fL (79-100); MONO # 0.5 x10^3/uL (0.0-1.1); MONO % 7 % (0-9); NEUT # 5.4 x10^3/uL (1.8-7.7); NEUT % 78 % (31-73); PLATELET COUNT 232 x10^3/uL (140-400); RED BLOOD COUNT 3.93 x10^6/uL (3.50-5.40); RED CELL DISTRIBUTION WIDTH 13.6 % (11.5-14.5); WHITE BLOOD COUNT 6.9 x10^3/uL (4.0-11.0)
[2019-07-08] MEDS ORDERED: LABETALOL 20 MG/4 ML DISP.SYRIN. IVP ONE (22:00)
[2019-07-08] MEDS ORDERED: NITROGLYCERIN OINT 1 GM PACKET. TP ONE (22:00)
[2019-07-08] MEDS ORDERED: ASPIRIN CHEWABLE 81 MG TABLET. PO ONE (22:00)
[2019-07-08 22:07] LABS: PROTHROMBIN TIME PATIENT 12.6 SEC (11.7-14.0)
[2019-07-08 22:09] LABS: CALCIUM 8.9 mg/dL (8.5-10.1); CREATININE 0.9 mg/dL (0.6-1.0); GFR 59.7; POTASSIUM 3.9 mmol/L (3.5-5.1)
[2019-07-08 22:14] LABS: ALBUMIN 3.8 g/dL (3.4-5.0); ALBUMIN/GLOBULIN RATIO 1.4 (1.0-1.7); TOTAL BILIRUBIN 0.4 mg/dL (0.2-1.0); TOTAL PROTEIN 6.6 g/dL (6.4-8.2)
--- NOTE | 2019-07-08 22:39 | RAD ---
Exam: Chest one view INDICATION: Chest pain TECHNIQUE: Frontal view of the chest Comparisons: None FINDINGS: The cardiomediastinal silhouette and pulmonary vessels are within normal limits. The lung and pleural spaces are clear. IMPRESSION: No acute cardiopulmonary process. Electronically signed by: Adriel Mohan MD (07/08/2019 10:36 PM) [facility]
[2019-07-08] MEDS ORDERED: NITROGLYCERIN SUBLINGUAL 0.4 MG BOTTLE OF 25. SL PRN (23:00)
--- NOTE | 2019-07-09 00:18 | NUR ---
Pt arrived to unit at 0018 accompanied by ER staff. Pt ambulated to bed w/o difficulty. VS , c/o being anxious and headache, will medicate as per order. Assessment complete, admit packet given, explained poc and possible procedures. Call light in place, will cont to monitor pt status and safety. pmrn
--- NOTE | 2019-07-09 00:18 | NUR ---
addendum: Pt verbalized that her blood pressure medications were recently changed. pmrn
[2019-07-09 00:30] VITALS: BP 164/82
[2019-07-09] MEDS ORDERED: ALPRAZolam 0.5 MG TABLET PO ONE (01:30)
[2019-07-09 03:10] VITALS: BP 97/57
--- NOTE | 2019-07-09 05:36 | EKG ---
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 Electronically Signed On 07-12-2019 10:02:44 CDT by Nathan Mayes
[2019-07-09 07:00] VITALS: BP 114/63
[2019-07-09] MEDS ORDERED: ONDANSETRON ODT 4 MG TAB.RAPDIS. PO PRN (07:00)
[2019-07-09] MEDS ORDERED: ALBUTEROL SULFATE 2.5 MG/3 ML NEBU. NEB PRN (07:00)
--- NOTE | 2019-07-09 07:15 | NUR ---
LATE ENTRY: Pt verbalized not taking pepcid, reglan D/T taking zantac and metoprolol does not work per pt verbalized. pmrn
[2019-07-09] MEDS ORDERED: METOCLOPRAMIDE 5 MG TABLET. PO SCH (07:30)
[2019-07-09] MEDS ORDERED: ASPIRIN ENTERIC COATED 81 MG TABLET.DR. PO SCH (08:00)
--- NOTE | 2019-07-09 08:22 | PDOC1 ---
History and Physical Date of Admission Date of Admission DATE: 07/09/19 TIME: 08:18 Identification/Chief Complaint Chief Complaint Chest pain Source Source: Patient History of Present Illness History of Present Illness Ms Addison is an 83yo F w/ PMHx Anxiety, Uterine Cancer, High Cholesterol, Hypertension, CAD with ptca s/p JOHAN x3 in 2007 who presents with chest pain and tightness comes and goes recently. Radiates to her neck. Associated with feeling nausea since 1700 on 07/08/19. She thought it was nerves. She frequently gets anxious in the evening and nausea. 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 She also notes history of "esophageal problems", has seen Dr. Marlow previously, but states her next medical plan is to have her left eye "fixed". Then she will see GI. Troponin x3 and EKG negative for cardiac event. Sed rate negative. NTG helped her swallowing and pain, but gave her a headache. Past Medical History Cardiovascular: CAD, HTN, MA, Hyperlipidemia Pulmonary: COPD CENTRAL NERVOUS SYSTEM: Migraine GI: GERD Heme/Onc: Cancer Hepatobiliary: No pertinent hx Psych: Addictions Musculoskeletal: low back pain, Osteoarthritis Rheumatologic: No pertinent hx Infectious disease: No pertinent hx Renal/: Chronic renal insuff Endocrine: No pertinent hx Past Surgical History Past Surgical History: Cataract Removal, Hysterectomy, Other Family History Family History: Hypertension Social History Smoke: No ALCOHOL: none Drugs: None Current Problem List Problem List Problems Medical Problems: (1) Chest pain Status: Acute Current Medications Current Medications Current Medications Aspirin (Children'S Aspirin) 324 mg 1X ONCE PO Last administered on 07/08/19at 21:57; Start 07/08/19 at 22:00; Stop 07/08/19 at 22:01; Status DC Labetalol HCl (Normodyne Iv Push) 10 mg 1X ONCE IVP Last administered on 07/08/19at 21:50; Start 07/08/19 at 22:00; Stop 07/08/19 at 22:01; Status DC Nitroglycerin (Nitro-Bid Oint) 1 inch 1X ONCE TP Last administered on 07/08/19at 21:57; Start 07/08/19 at 22:00; Stop 07/08/19 at 22:01; Status DC Nitroglycerin (Nitrostat) 0.4 mg PRN Q5MIN PRN SL CHEST PAIN; Start 07/08/19 at 23:00; Stop 07/09/19 at 22:59 Alprazolam (Xanax) 0.5 mg BID PO ; Start 07/09/19 at 09:00 Alprazolam (Xanax) 0.5 mg 1X ONCE PO Last administered on 07/09/19at 01:29; Start 07/09/19 at 01:30; Stop 07/09/19 at 01:31; Status DC Albuterol Sulfate (Ventolin Neb Soln) 2.5 mg PRN Q4HRS PRN NEB SHORTNESS OF BREATH; Start 07/09/19 at 07:00 Aspirin (Ecotrin) 81 mg DAILYWBKFT PO ; Start 07/09/19 at 08:00 Atorvastatin Calcium (Lipitor) 20 mg QHS PO ; Start 07/09/19 at 21:00 Famotidine (Pepcid) 20 mg BID PO ; Start 07/09/19 at 09:00; Stop 07/09/19 at 07:42; Status DC Furosemide (Lasix) 20 mg DAILY PO ; Start 07/09/19 at 09:00 Metoclopramide HCl (Reglan) 5 mg BIDAC PO ; Start 07/09/19 at 07:30; Stop 07/09/19 at 07:42; Status DC Ondansetron HCl (Zofran Odt) 4 mg PRN Q6HRS PRN PO NAUSEA; Start 07/09/19 at 07:00 Vitamin B Complex (Chad B) 1 tab DAILY PO ; Start 07/09/19 at 09:00 Losartan Potassium (Cozaar) 100 mg DAILY PO ; Start 07/09/19 at 09:00 Magnesium Oxide (Magnesium Oxide) 400 mg BID PO ; Start 07/09/19 at 09:00 Metoprolol Succinate (Toprol Xl) 50 mg DAILY PO ; Start 07/09/19 at 09:00; Stop 07/09/19 at 07:42; Status DC Active Scripts Active Zofran Odt (Ondansetron) 4 Mg Tab.rapdis 1 Tab SL Q6HRS PRN Proair Hfa Inhaler (Albuterol Sulfate) 8.5 Gm Hfa.aer.ad 2 Puff INH Q4HRS PRN Aspirin Ec (Aspirin) 81 Mg Tablet.dr 81 Mg PO DAILYWBKFT Reported Magnesium (Magnesium Oxide) 400 Mg Capsule 1 Cap PO BID Furosemide 20 Mg Tablet 1 Tab PO DAILY Co Q-10 100 Mg Softgel (Ubidecarenone/Vit E Acetate) 1 Each Capsule 1 Each PO B Complex (Vitamin B Complex) 1 Each Tablet 1 Each PO Daily Garlic Once-A-Day (Garlic) 400 Mg Tablet 400 Mg PO Atorvastatin Calcium 20 Mg Tablet 1 Tab PO QHS Alprazolam 0.5 Mg Tablet 1 Tab PO BID Losartan Potassium 100 Mg Tablet 100 Mg PO DAILY Allergies Allergies: Coded Allergies: amlodipine (Verified Allergy, Intermediate, 07/09/19) palpitations, swelling in legs codeine (Verified Allergy, Intermediate, 09/22/16) lisinopril (Verified Allergy, Intermediate, 07/09/19) cough ROS General: YES: Fatigue, Malaise; No: Chills, Night Sweats, Appetite, Other PSYCHOLOGICAL ROS: YES: Anxiety; No: Behavioral Disorder, Concentration difficultie, Decreased libido, Depression, Disorientation, Hallucinations, Hostility, Irritablity, Memory difficulties, Mood Swings, Obsessive thoughts, Physical abuse, Sexual abuse, Sleep disturbances, Suicidal ideation, Other Eyes: No Blurry vision, No Decreased vision, No Double vision, No Dry eyes, No Excessive tearing, No Eye Pain, No Itchy Eyes, No Loss of vision, No Photophobia, No Scotomata, No Uses contacts, No Uses glasses, No Other HEENT: YES: Heacaches, Visual Changes; No: Hearing change, Nasal congestion, Nasal discharge, Oral lesions, Sinus pain, Sore Throat, Epistaxis, Sneezing, Snoring, Tinnitus, Vertigo, Vocal changes, Other ALLERGY AND IMMUNOLOGY: No: Hives, Insect Bite Sensitivity, Itchy/Watery Eyes, Nasal Congestion, Post Nasal Drip, Seasonal Allergies, Other Hematological and Lymphatic: No: Bleeding Problems, Blood Clots, Blood Transfusions, Brusing, Night Sweats, Pallor, Swollen Lymph Nodes, Other ENDOCRINE: No: Breast Changes, Galactorrhea, Hair Pattern Changes, Hot Flashes, Malaise/lethargy, Mood Swings, Palpitations, Polydipsia/polyuria, Skin Changes, Temperature Intolerance, Unexpected Weight Changes, Other Breast: No New/Changing Breast Lumps, No Nipple changes, No Nipple discharge, No Other Respiratory: No: Cough, Hemoptysis, Orthopnea, Pleuritic Pain, Shortness of breath, SOB with excertion, Sputum Changes, Stridor, Tachypnea, Wheezing, Other Cardiovascular: yes Chest Pain; No Palpitations, No Orthopnea, No Paroxysmal Noc. Dyspnea, No Edema, No Lt Headedness, No Other Gastrointestinal: Yes Nausea, Yes Other (Dysphagia); No Vomiting, No Abdominal Pain, No Diarrhea, No Constipation, No Melena, No Hematochezia Genitourinary: No Dysuria, No Frequency, No Incontinence, No Hematuria, No Retention, No Discharge, No Urgency, No Pain, No Flank Pain, No Other, No , No , No , No , No , No , No Musculoskeletal: No Gait Disturbance, No Joint Pain, No Joint Stiffness, No Joint Swelling, No Muscle Pain, No Muscular Weakness, No Pain In:, No Swelling In:, No Other Neurological: No Behavorial Changes, No Bowel/Bladder ControlChng, No Co nfusion, No Dizziness, No Gait Disturbance, No Headaches, No Impaired Coord/balance, No Memory Loss, No Numbness/Tingling, No Seizures, No Speech Problems, No Tremors, No Visual Changes, No Weakness, No Other Skin: No Dry Skin, No Eczema, No Hair Changes, No Lumps, No Mole Changes, No Mottling, No Nail Changes, No Pruritus, No Rash, No Skin Lesion Changes, No Other, No Acne Physical Exam General: Alert, Oriented X3, Cooperative, No acute distress HEENT: Atraumatic, PERRLA, EOMI, Mucous membr. moist/pink Lungs: Clear to auscultation, Normal air movement Heart: S1S2, RRR, no gallops, murmurs (1/6 murmur) Abdomen: Normal bowel sounds, Soft, No tenderness, No hepatosplenomegaly, No masses Rectal Exam: not examined Extremities: No clubbing, No cyanosis, No edema, Normal pulses, No tenderness/swelling Skin: No rashes, No breakdown, No significant lesion Neuro: Normal gait, Normal speech, Strength at 5/5 X4 ext, Normal tone, Sensation intact, Cranial nerves 3-12 NL, Reflexes 2+ Psych/Mental Status: Mental status NL, Mood NL Vitals Vitals Vital Signs Date Time Temp Pulse Resp B/P (MAP) Pulse Ox O2 Delivery O2 Flow Rate FiO2 07/09/19 07:00 97.3 71 16 114/63 (80) 94 Room Air 97.3 07/09/19 03:15 2.0 Labs Labs Laboratory Tests Test 07/08/19 21:50 07/09/19 01:45 07/09/19 05:35 White Blood Count 6.9 x10^3/uL (4.0-11.0) Red Blood Count 3.93 x10^6/uL (3.50-5.40) Hemoglobin 12.6 g/dL (12.0-15.5) Hematocrit 36.0 % (36.0-47.0) Mean Corpuscular Volume 92 fL (79-100) Mean Corpuscular Hemoglobin 32 pg (25-35) Mean Corpuscular Hemoglobin Concent 35 g/dL (31-37) Red Cell Distribution Width 13.6 % (11.5-14.5) Platelet Count 232 x10^3/uL (140-400) Neutrophils (%) (Auto) 78 % (31-73) Lymphocytes (%) (Auto) 13 % (24-48) Monocytes (%) (Auto) 7 % (0-9) Eosinophils (%) (Auto) 1 % (0-3) Basophils (%) (Auto) 1 % (0-3) Neutrophils # (Auto) 5.4 x10^3/uL (1.8-7.7) Lymphocytes # (Auto) 0.9 x10^3/uL (1.0-4.8) Monocytes # (Auto) 0.5 x10^3/uL (0.0-1.1) Eosinophils # (Auto) 0.1 x10^3/uL (0.0-0.7) Basophils # (Auto) 0.1 x10^3/uL (0.0-0.2) Prothrombin Time 12.6 SEC (11.7-14.0) Prothromb Time International Ratio 1.0 (0.8-1.1) Sodium Level 134 mmol/L (136-145) Potassium Level 3.9 mmol/L (3.5-5.1) Chloride Level 99 mmol/L (98-107) Carbon Dioxide Level 26 mmol/L (21-32) Anion Gap 9 (6-14) Blood Urea Nitrogen 19 mg/dL (7-20) Creatinine 0.9 mg/dL (0.6-1.0) Estimated GFR (Cockcroft-Gault) 59.7 BUN/Creatinine Ratio 21 (6-20) Glucose Level 135 mg/dL (70-99) Calcium Level 8.9 mg/dL (8.5-10.1) Total Bilirubin 0.4 mg/dL (0.2-1.0) Aspartate Amino Transf (AST/SGOT) 28 U/L (15-37) Alanine Aminotransferase (ALT/SGPT) 31 U/L (14-59) Alkaline Phosphatase 80 U/L (46-116) Troponin I Quantitative < 0.017 ng/mL (0.000-0.055) < 0.017 ng/mL (0.000-0.055) < 0.017 ng/mL (0.000-0.055) HR-Aio-D-Type Natriuretic Peptide 261 pg/mL (0-449) Total Protein 6.6 g/dL (6.4-8.2) Albumin 3.8 g/dL (3.4-5.0) Albumin/Globulin Ratio 1.4 (1.0-1.7) Laboratory Tests Test 07/08/19 21:50 07/09/19 01:45 07/09/19 05:35 White Blood Count 6.9 x10^3/uL (4.0-11.0) Red Blood Count 3.93 x10^6/uL (3.50-5.40) Hemoglobin 12.6 g/dL (12.0-15.5) Hematocrit 36.0 % (36.0-47.0) Mean Corpuscular Volume 92 fL (79-100) Mean Corpuscular Hemoglobin 32 pg (25-35) Mean Corpuscular Hemoglobin Concent 35 g/dL (31-37) Red Cell Distribution Width 13.6 % (11.5-14.5) Platelet Count 232 x10^3/uL (140-400) Neutrophils (%) (Auto) 78 % (31-73) Lymphocytes (%) (Auto) 13 % (24-48) Monocytes (%) (Auto) 7 % (0-9) Eosinophils (%) (Auto) 1 % (0-3) Basophils (%) (Auto) 1 % (0-3) Neutrophils # (Auto) 5.4 x10^3/uL (1.8-7.7) Lymphocytes # (Auto) 0.9 x10^3/uL (1.0-4.8) Monocytes # (Auto) 0.5 x10^3/uL (0.0-1.1) Eosinophils # (Auto) 0.1 x10^3/uL (0.0-0.7) Basophils # (Auto) 0.1 x10^3/uL (0.0-0.2) Prothrombin Time 12.6 SEC (11.7-14.0) Prothromb Time International Ratio 1.0 (0.8-1.1) Sodium Level 134 mmol/L (136-145) Potassium Level 3.9 mmol/L (3.5-5.1) Chloride Level 99 mmol/L (98-107) Carbon Dioxide Level 26 mmol/L (21-32) Anion Gap 9 (6-14) Blood Urea Nitrogen 19 mg/dL (7-20) Creatinine 0.9 mg/dL (0.6-1.0) Estimated GFR (Cockcroft-Gault) 59.7 BUN/Creatinine Ratio 21 (6-20) Glucose Level 135 mg/dL (70-99) Calcium Level 8.9 mg/dL (8.5-10.1) Total Bilirubin 0.4 mg/dL (0.2-1.0) Aspartate Amino Transf (AST/SGOT) 28 U/L (15-37) Alanine Aminotransferase (ALT/SGPT) 31 U/L (14-59) Alkaline Phosphatase 80 U/L (46-116) Troponin I Quantitative < 0.017 ng/mL (0.000-0.055) < 0.017 ng/mL (0.000-0.055) < 0.017 ng/mL (0.000-0.055) PO-Ejv-O-Type Natriuretic Peptide 261 pg/mL (0-449) Total Protein 6.6 g/dL (6.4-8.2) Albumin 3.8 g/dL (3.4-5.0) Albumin/Globulin Ratio 1.4 (1.0-1.7) Images Images CXR - No acute cardiopulmonary process. VTE Prophylaxis Ordered VTE Prophylaxis Devices: No VTE Pharmacological Prophylaxi: Yes Assessment/Plan Assessment/Plan A/P: Chest pain - possible atypical, GI related, negative EKG and enzymes. Stress test 3 years old. prior JOHAN x3 CAD with ptca s/p JOHAN x3 in 2007 Anxiety - cont home meds Uterine Cancer - in remission High Cholesterol - cont statin, check lipids Hypertension - Controlled FEN - NPO PPX - SCDs FULL CODE Dispo - WIll have cardiology evaluate, possibly echo or further risk stratification and outpatient MPI and GI w/u ANGEL LEE MD Jul 09, 2019 08:22
[2019-07-09] MEDS ORDERED: ACETAMINOPHEN 325 MG TABLET. PO PRN (08:30)
[2019-07-09] MEDS ORDERED: RANI150T2 PO (08:35)
[2019-07-09] MEDS ORDERED: FAMOTIDINE 20 MG TABLET. PO SCH ×2 (09:00)
[2019-07-09] MEDS ORDERED: FUROSEMIDE 20 MG TABLET PO SCH (09:00)
[2019-07-09] MEDS ORDERED: LOSARTAN POTASSIUM 50 MG TABLET. PO SCH (09:00)
[2019-07-09] MEDS ORDERED: VITAMIN B COMPLEX TABLET. PO SCH (09:00)
[2019-07-09] MEDS ORDERED: MAGNESIUM OXIDE 400 MG TABLET PO SCH (09:00)
[2019-07-09] MEDS ORDERED: METOPROLOL SUCC 24HR ER 50 MG TAB.ER.24H. PO SCH (09:00)
[2019-07-09] MEDS ORDERED: ALPRAZolam 0.5 MG TABLET PO SCH (09:00)
[2019-07-09 11:00] VITALS: BP 102/61
--- NOTE | 2019-07-09 11:17 | NUR ---
SS following for discharge planning. SS reviewed pt chart. Pt is from home and is currently on room air. No discharge needs noted at this time. SS will continue to follow for discharge planning.
--- NOTE | 2019-07-09 11:23 | PDOC2 ---
CARDIAC CONSULT DATE OF CONSULT Date of Consult DATE: 07/09/19 TIME: 11:16 REASON FOR CONSULT Reason for Consult: Chest pain REFERRING PHYSICIAN Referring Physician: Dr. Kang SOURCE Source: Chart review, Patient HISTORY OF PRESENT ILLNESS HISTORY OF PRESENT ILLNESS This is an 83 yo female who presented secondary to upper chest pain and tightness in her throat. Has a history of a large hiatal hernia and duodenal ul cers. Reports intermittent tightness of her throat for the last couple of years. No specific precipitating or worsening factors. Seems to resolve with Xanax. She also reports central chest pressures, but reports she thinks this is anxiety related to tightness in her throat. No associated dizziness, diaphoresis, palpitations, or nausea/vomiting. Reports chronic SOA since OK in 2007. PAST MEDICAL HISTORY Past Medical History Cardiovascular: CAD, HTN, Hyperlipidemia Pulmonary: COPD CENTRAL NERVOUS SYSTEM: Migraine GI: GERD Heme/Onc: Cancer (uterine) Psych: Anxiety Musculoskeletal: Osteoarthritis Rheumatologic: No pertinent hx Infectious disease: No pertinent hx ENT: No pertinent hx Renal/: No pertinent hx Endocrine: No pertinent hx Dermatology: Basal cell PAST SURGICAL HISTORY Past Surgical History Mohs surgery, Nasal Reconstructive Surgery, PCI/stent x3 10 yrs ago, Hysterectomy FAMILY HISTORY Family History: Other (noncontributory ) SOCIAL HISTORY Social History Smoke: No ALCOHOL: none Drugs: None Lives: Alone CURRENT MEDICATIONS CURRENT MEDICATIONS Current Medications Medications (Trade) Dose Ordered Sig/Bo Route PRN Reason Start Time Stop Time Status Last Admin Dose Admin Aspirin (Children'S Aspirin) 324 mg 1X ONCE PO 07/08/19 22:00 07/08/19 22:01 DC 07/08/19 21:57 Labetalol HCl (Normodyne Iv Push) 10 mg 1X ONCE IVP 07/08/19 22:00 07/08/19 22:01 DC 07/08/19 21:50 Nitroglycerin (Nitro-Bid Oint) 1 inch 1X ONCE TP 07/08/19 22:00 07/08/19 22:01 DC 07/08/19 21:57 Alprazolam (Xanax) 0.5 mg BID PO 07/09/19 09:00 07/09/19 08:34 Alprazolam (Xanax) 0.5 mg 1X ONCE PO 07/09/19 01:30 07/09/19 01:31 DC 07/09/19 01:29 Aspirin (Ecotrin) 81 mg DAILYWBKFT PO 07/09/19 08:00 07/09/19 08:34 Furosemide (Lasix) 20 mg DAILY PO 07/09/19 09:00 07/09/19 08:34 Vitamin B Complex (Chad B) 1 tab DAILY PO 07/09/19 09:00 07/09/19 08:34 Losartan Potassium (Cozaar) 100 mg DAILY PO 07/09/19 09:00 07/09/19 08:34 Acetaminophen (Tylenol) 650 mg PRN Q6HRS PRN PO pain 07/09/19 08:30 07/09/19 08:34 Famotidine (Pepcid) 20 mg HS PO 07/09/19 09:00 07/09/19 08:42 ALLERGIES ALLERGIES: Coded Allergies: amlodipine (Verified Allergy, Intermediate, 07/09/19) palpitations, swelling in legs codeine (Verified Allergy, Intermediate, 09/22/16) lisinopril (Verified Allergy, Intermediate, 07/09/19) cough ROS Review of System 14 point ROS conducted with pertinent positives noted above in HPI. PHYSICAL EXAM PHYSICAL EXAM General: Alert, Oriented X3, Cooperative, No acute distress HEENT: Atraumatic, Mucous membr. moist/pink Lungs: Clear to auscultation, Normal air movement Heart: Regular rate (SR), Normal S1, Normal S2, Other Abdomen: Soft, No tenderness Extremities: No cyanosis, Other Skin: No breakdown, No significant lesion Neuro: Normal speech, Sensation intact Psych/Mental Status: Mental status NL, Mood NL MUSCULOSKELETAL: Osteoarthritic changes both hands VITALS/I&O VITALS/I&O: Vital Signs Date Time Temp Pulse Resp B/P (MAP) Pulse Ox O2 Delivery O2 Flow Rate FiO2 07/09/19 08:34 71 114/63 07/09/19 08:00 Room Air 07/09/19 07:00 97.3 16 94 97.3 07/09/19 03:15 2.0 I & O 07/08/19 07/08/19 07/09/19 14:59 22:59 06:59 Intake Total 0 ml Balance 0 ml LABS Lab: Laboratory Tests Test 07/08/19 21:50 07/09/19 01:45 07/09/19 05:35 White Blood Count 6.9 x10^3/uL (4.0-11.0) Red Blood Count 3.93 x10^6/uL (3.50-5.40) Hemoglobin 12.6 g/dL (12.0-15.5) Hematocrit 36.0 % (36.0-47.0) Mean Corpuscular Volume 92 fL (79-100) Mean Corpuscular Hemoglobin 32 pg (25-35) Mean Corpuscular Hemoglobin Concent 35 g/dL (31-37) Red Cell Distribution Width 13.6 % (11.5-14.5) Platelet Count 232 x10^3/uL (140-400) Neutrophils (%) (Auto) 78 % (31-73) H Lymphocytes (%) (Auto) 13 % (24-48) L Monocytes (%) (Auto) 7 % (0-9) Eosinophils (%) (Auto) 1 % (0-3) Basophils (%) (Auto) 1 % (0-3) Neutrophils # (Auto) 5.4 x10^3/uL (1.8-7.7) Lymphocytes # (Auto) 0.9 x10^3/uL (1.0-4.8) L Monocytes # (Auto) 0.5 x10^3/uL (0.0-1.1) Eosinophils # (Auto) 0.1 x10^3/uL (0.0-0.7) Basophils # (Auto) 0.1 x10^3/uL (0.0-0.2) Prothrombin Time 12.6 SEC (11.7-14.0) Prothrombin Time INR 1.0 (0.8-1.1) Sodium Level 134 mmol/L (136-145) L Potassium Level 3.9 mmol/L (3.5-5.1) Chloride Level 99 mmol/L (98-107) Carbon Dioxide Level 26 mmol/L (21-32) Anion Gap 9 (6-14) Blood Urea Nitrogen 19 mg/dL (7-20) Creatinine 0.9 mg/dL (0.6-1.0) Estimated GFR (Cockcroft-Gault) 59.7 BUN/Creatinine Ratio 21 (6-20) H Glucose Level 135 mg/dL (70-99) H Calcium Level 8.9 mg/dL (8.5-10.1) Total Bilirubin 0.4 mg/dL (0.2-1.0) Aspartate Amino Transferase (AST) 28 U/L (15-37) Alanine Aminotransferase (ALT) 31 U/L (14-59) Alkaline Phosphatase 80 U/L (46-116) Troponin I Quantitative < 0.017 ng/mL (0.000-0.055) < 0.017 ng/mL (0.000-0.055) < 0.017 ng/mL (0.000-0.055) WN-Ieb-W-Type Natriuretic Peptide 261 pg/mL (0-449) Total Protein 6.6 g/dL (6.4-8.2) Albumin 3.8 g/dL (3.4-5.0) Albumin/Globulin Ratio 1.4 (1.0-1.7) Erythrocyte Sedimentation Rate 3 (0-25) Thyroid Stimulating Hormone (TSH) 3.031 uIU/mL (0.358-3.74) Laboratory Tests 07/08/19 21:50 Laboratory Tests 07/08/19 21:50 ECHOCARDIOGRAM ECHOCARDIOGRAM <Conclusion> The left ventricular systolic function is normal. The Ejection Fraction is estimated at 55-60%. There is normal LV segmental wall motion. Trace to mild mitral regurgitation. Trace tricuspid regurgitation. The PA pressure was estimated at 26 mmHg. There is no evidence of significant pericardial effusion. DATE: 06/12/16 1235 STRESS TEST STRESS TEST Conclusion 1. No EKG evidence of stressed induced ischemia. 2. Nuclear imaging shows no reversible ischemia or infarct. 3. Normal left ventricular systolic function with an ejection fraction of 67%. 4. Low risk Lexiscan nuclear stress test. DATE: 09/22/16 1452 ASSESSMENT/PLAN ASSESSMENT/PLAN 1. Chest pain, atypical; AMI ruled out. 2. Accelerated hypertension; now well controlled 3. Hyperlipidemia; statin 4. CAD; s/p PCI/stent in 2007. 5. GERD, duodenal ulcers ,and large hiatal hernia 6. Anxiety Recommendations Echo to assess LV systolic function Lipids Continue secondary prevention measures Outpatient ischemic evaluation unless echo significantly abnormal. JULIA ANDERSON APRN Jul 09, 2019 11:23
[2019-07-09 12:12] LABS: CHOLESTEROL/HDL RATIO 2.2
--- NOTE | 2019-07-09 13:02 | CARD ---
MR#: [id number] Date of Study: 07/09/2019 Ordering Physician: ANGEL LEE, Referring Physician: ANGEL LEE, Tech: Emma Cornelius [facility] APPROVED REPORT EXAM: Two-dimensional and M-mode echocardiogram with Doppler and color Doppler. Other Information Quality : Good INDICATION Chest Pain 2D DIMENSIONS RVDd2.3 (2.9-3.5cm)Left Atrium(2D)2.8 (1.6-4.0cm) IVSd0.9 (0.7-1.1cm)Aortic Root(2D)3.5 (2.0-3.7cm) LVDd4.4 (3.9-5.9cm)LVOT Diameter2.1 (1.8-2.4cm) PWd0.8 (0.7-1.1cm)LVDs3.4 (2.5-4.0cm) FS (%) 22.3 %SV38.9 ml Aortic Valve AoV Peak Jaun.110.9cm/sAoV VTI21.0cm AO Peak GR.4.9mmHgLVOT Peak Jaun.82.5cm/s AO Mean GR.2mmHgAVA (VMAX)2.58cm2 NABEEL (VTI)2.99lc6NQ P 1/2 Vjga477yd Mitral Valve MV E Vrqazlbu97.6cm/sMV DECEL [id number] MV A Rnsmfzhp255.1cm/sE/A Ratio0.6 Tricuspid Valve TR P. Uuluaoyc245fs/sRAP VOCKMXMJ4tiPm TR Peak Gr.18wnLqJEED50lbBh Pulmonary Vein S1 Caqrxjrc96.4cm/s LEFT VENTRICLE The left ventricle is normal size. There is normal left ventricular wall thickness. The left ventricu lar systolic function is normal. The ejection fraction is 50-55% There is normal LV segmental wall mo tion. Transmitral Doppler flow pattern is Grade I-abnormal relaxation pattern. RIGHT VENTRICLE The right ventricle is normal size. The right ventricular systolic function is normal. ATRIA The left atrium size is normal. The right atrium size is normal. The interatrial septum is intact wit h no evidence for an atrial septal defect or patent foramen ovale as noted on 2-D or Doppler imaging. AORTIC VALVE The aortic valve is calcified but opens well. Doppler and Color Flow revealed mild aortic regurgitati on. There is no significant aortic valvular stenosis. MITRAL VALVE The mitral valve is calcified but opens well. Mitral annular calcification is mild. There is no evide nce of mitral valve prolapse. There is no mitral valve stenosis. Doppler and Color-flow revealed mild mitral regurgitation. TRICUSPID VALVE The tricuspid valve is normal in structure and function. Doppler and Color Flow revealed trace to mil d tricuspid regurgitation The PA pressure was estimated at 33 mmHg. There is no tricuspid valve steno sis. PULMONIC VALVE The pulmonic valve is not well visualized. Doppler and Color Flow revealed trace pulmonic valvular re gurgitation. There is no pulmonic valvular stenosis. GREAT VESSELS The aortic root is normal in size. The ascending aorta is normal in size. The IVC is normal in size a nd collapses >50% with inspiration. PERICARDIAL EFFUSION There is no evidence of significant pericardial effusion. Critical Notification Critical Value: No <Conclusion> The left ventricle is normal size. The left ventricular systolic function is normal. The ejection fraction is 50-55% There is no significant aortic valvular stenosis. Doppler and Color Flow revealed mild aortic regurgitation. Doppler and Color-flow revealed mild mitral regurgitation. Doppler and Color Flow revealed trace to mild tricuspid regurgitation The PA pressure was estimated at 33 mmHg. Signed by : Nathan Mayes MD Electronically Approved : 07/09/2019 13:02:24
[2019-07-09] MEDS ORDERED: ONDA4TAB7 PO (13:52)
--- NOTE | 2019-07-09 13:56 | PDOC3 ---
Discharge Summary Visit Information Date of Admission: Jul 08, 2019 Date of Discharge: Jul 09, 2019 Admitting Diagnosis: Chest pain Final Diagnosis Problems Medical Problems: (1) Chest pain Status: Acute Brief Hospital Course Allergies Allergies Coded Allergies Type Severity Reaction Last Updated Verified amlodipine Allergy Intermediate 07/09/19 Yes codeine Allergy Intermediate 09/22/16 Yes lisinopril Allergy Intermediate 07/09/19 Yes Vital Signs Vital Signs Date Time Temp Pulse Resp B/P (MAP) Pulse Ox O2 Delivery O2 Flow Rate FiO2 07/09/19 11:00 97.5 64 16 102/61 (75) 94 Room Air 97.5 07/09/19 03:15 2.0 Lab Results Laboratory Tests Test 07/08/19 21:50 07/09/19 01:45 07/09/19 05:35 White Blood Count 6.9 x10^3/uL (4.0-11.0) Red Blood Count 3.93 x10^6/uL (3.50-5.40) Hemoglobin 12.6 g/dL (12.0-15.5) Hematocrit 36.0 % (36.0-47.0) Mean Corpuscular Volume 92 fL (79-100) Mean Corpuscular Hemoglobin 32 pg (25-35) Mean Corpuscular Hemoglobin Concent 35 g/dL (31-37) Red Cell Distribution Width 13.6 % (11.5-14.5) Platelet Count 232 x10^3/uL (140-400) Neutrophils (%) (Auto) 78 % (31-73) Lymphocytes (%) (Auto) 13 % (24-48) Monocytes (%) (Auto) 7 % (0-9) Eosinophils (%) (Auto) 1 % (0-3) Basophils (%) (Auto) 1 % (0-3) Neutrophils # (Auto) 5.4 x10^3/uL (1.8-7.7) Lymphocytes # (Auto) 0.9 x10^3/uL (1.0-4.8) Monocytes # (Auto) 0.5 x10^3/uL (0.0-1.1) Eosinophils # (Auto) 0.1 x10^3/uL (0.0-0.7) Basophils # (Auto) 0.1 x10^3/uL (0.0-0.2) Prothrombin Time 12.6 SEC (11.7-14.0) Prothromb Time International Ratio 1.0 (0.8-1.1) Sodium Level 134 mmol/L (136-145) Potassium Level 3.9 mmol/L (3.5-5.1) Chloride Level 99 mmol/L (98-107) Carbon Dioxide Level 26 mmol/L (21-32) Anion Gap 9 (6-14) Blood Urea Nitrogen 19 mg/dL (7-20) Creatinine 0.9 mg/dL (0.6-1.0) Estimated GFR (Cockcroft-Gault) 59.7 BUN/Creatinine Ratio 21 (6-20) Glucose Level 135 mg/dL (70-99) Calcium Level 8.9 mg/dL (8.5-10.1) Total Bilirubin 0.4 mg/dL (0.2-1.0) Aspartate Amino Transf (AST/SGOT) 28 U/L (15-37) Alanine Aminotransferase (ALT/SGPT) 31 U/L (14-59) Alkaline Phosphatase 80 U/L (46-116) Troponin I Quantitative < 0.017 ng/mL (0.000-0.055) < 0.017 ng/mL (0.000-0.055) < 0.017 ng/mL (0.000-0.055) ZP-Vfb-D-Type Natriuretic Peptide 261 pg/mL (0-449) Total Protein 6.6 g/dL (6.4-8.2) Albumin 3.8 g/dL (3.4-5.0) Albumin/Globulin Ratio 1.4 (1.0-1.7) Erythrocyte Sedimentation Rate 3 (0-25) Triglycerides Level 50 mg/dL (0-150) Cholesterol Level 166 mg/dL (0-200) LDL Cholesterol, Calculated 81 mg/dL (0-100) VLDL Cholesterol, Calculated 10 mg/dL (0-40) Non-HDL Cholesterol Calculated 91 mg/dL (0-129) HDL Cholesterol 75 mg/dL (40-60) Cholesterol/HDL Ratio 2.2 Thyroid Stimulating Hormone (TSH) 3.031 uIU/mL (0.358-3.74) Laboratory Tests Test 07/08/19 21:50 07/09/19 01:45 07/09/19 05:35 White Blood Count 6.9 x10^3/uL (4.0-11.0) Red Blood Count 3.93 x10^6/uL (3.50-5.40) Hemoglobin 12.6 g/dL (12.0-15.5) Hematocrit 36.0 % (36.0-47.0) Mean Corpuscular Volume 92 fL (79-100) Mean Corpuscular Hemoglobin 32 pg (25-35) Mean Corpuscular Hemoglobin Concent 35 g/dL (31-37) Red Cell Distribution Width 13.6 % (11.5-14.5) Platelet Count 232 x10^3/uL (140-400) Neutrophils (%) (Auto) 78 % (31-73) Lymphocytes (%) (Auto) 13 % (24-48) Monocytes (%) (Auto) 7 % (0-9) Eosinophils (%) (Auto) 1 % (0-3) Basophils (%) (Auto) 1 % (0-3) Neutrophils # (Auto) 5.4 x10^3/uL (1.8-7.7) Lymphocytes # (Auto) 0.9 x10^3/uL (1.0-4.8) Monocytes # (Auto) 0.5 x10^3/uL (0.0-1.1) Eosinophils # (Auto) 0.1 x10^3/uL (0.0-0.7) Basophils # (Auto) 0.1 x10^3/uL (0.0-0.2) Prothrombin Time 12.6 SEC (11.7-14.0) Prothromb Time International Ratio 1.0 (0.8-1.1) Sodium Level 134 mmol/L (136-145) Potassium Level 3.9 mmol/L (3.5-5.1) Chloride Level 99 mmol/L (98-107) Carbon Dioxide Level 26 mmol/L (21-32) Anion Gap 9 (6-14) Blood Urea Nitrogen 19 mg/dL (7-20) Creatinine 0.9 mg/dL (0.6-1.0) Estimated GFR (Cockcroft-Gault) 59.7 BUN/Creatinine Ratio 21 (6-20) Glucose Level 135 mg/dL (70-99) Calcium Level 8.9 mg/dL (8.5-10.1) Total Bilirubin 0.4 mg/dL (0.2-1.0) Aspartate Amino Transf (AST/SGOT) 28 U/L (15-37) Alanine Aminotransferase (ALT/SGPT) 31 U/L (14-59) Alkaline Phosphatase 80 U/L (46-116) Troponin I Quantitative < 0.017 ng/mL (0.000-0.055) < 0.017 ng/mL (0.000-0.055) < 0.017 ng/mL (0.000-0.055) BI-Dhp-X-Type Natriuretic Peptide 261 pg/mL (0-449) Total Protein 6.6 g/dL (6.4-8.2) Albumin 3.8 g/dL (3.4-5.0) Albumin/Globulin Ratio 1.4 (1.0-1.7) Erythrocyte Sedimentation Rate 3 (0-25) Triglycerides Level 50 mg/dL (0-150) Cholesterol Level 166 mg/dL (0-200) LDL Cholesterol, Calculated 81 mg/dL (0-100) VLDL Cholesterol, Calculated 10 mg/dL (0-40) Non-HDL Cholesterol Calculated 91 mg/dL (0-129) HDL Cholesterol 75 mg/dL (40-60) Cholesterol/HDL Ratio 2.2 Thyroid Stimulating Hormone (TSH) 3.031 uIU/mL (0.358-3.74) Brief Hospital Course Ms Addison is an 83yo F w/ PMHx Anxiety, Uterine Cancer, High Cholesterol, Hypertension, CAD with ptca s/p JOHAN x3 in 2007 who presents with chest pain and tightness comes and goes recently. Radiates to her neck. Associated with feeling nausea since 1700 on 07/08/19. She thought it was nerves. She frequently gets anxious in the evening and nausea. 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 She also notes history of "esophageal problems", has seen Dr. Marlow previously, but states her next medical plan is to have her left eye "fixed". Then she will see GI. Troponin x3 and EKG negative for cardiac event. Sed rate negative. NTG helped her swallowing and pain, but gave her a headache. Echo - The left ventricle is normal size. The left ventricular systolic function is normal. The ejection fraction is 50-55% There is no significant aortic valvular stenosis. Doppler and Color Flow revealed mild aortic regurgitation. Doppler and Color-flow revealed mild mitral regurgitation. Doppler and Color Flow revealed trace to mild tricuspid regurgitation The PA pressure was estimated at 33 mmHg. Seen by cardiology and with normal echo, instructed for outpatient cardiac f/u and stress testing. She will cont H2 peng BID and zofran prn, f/u with GI as well Greater than 30 minutes spent on d/c. Discharge Information Condition at Discharge: Improved Follow Up: Weeks Disposition/Orders: D/C to Home Scheduled Alprazolam (Alprazolam) 0.5 Mg Tablet, 1 TAB PO BID, #60 (Reported) Entered as Reported by: SURESH CALVILLO on 06/11/16129 Last Action: Continued on 07/09/19 011 by CLAUDIA YAO Aspirin (Aspirin Ec) 81 Mg Tablet.dr, 81 MG PO DAILYWBKFT, #30 Prescribed by: RASHID LIRIANO MD on 09/22/16 0237 Last Action: Continued on 07/09/19652 by ANGEL LEE MD Atorvastatin Calcium (Atorvastatin Calcium) 20 Mg Tablet, 1 TAB PO QHS, (Reported) Entered as Reported by: SURESH CALVILLO on 06/11/16129 Last Action: Edited on 07/09/19754 by KASSIDY NEGRO [facility] Furosemide (Furosemide) 20 Mg Tablet, 1 TAB PO DAILY, #90 Ref 1 (Reported) Entered as Reported by: PERLA JO on 06/14/17335 Last Action: Continued on 07/09/19652 by ANGEL LEE MD Losartan Potassium (Losartan Potassium) 100 Mg Tablet, 100 MG PO DAILY, (Reported) Entered as Reported by: SURESH CALVILLO on 06/11/16129 Last Action: Converted on 07/09/1954 by ANGEL LEE MD Magnesium Oxide (Magnesium) 400 Mg Capsule, 1 CAP PO BID, #180 Ref 3 (Reported) Entered as Reported by: PERLA JO on 06/14/17335 Last Action: Converted on 07/09/19653 by ANGEL LEE MD Ondansetron Hcl (Zofran) 4 Mg Tablet, 1 TAB PO Q6HRS for nausea for 30 Days, #120 Prescribed by: ANGEL LEE MD on 07/09/19 1352 Ranitidine Hcl (Ranitidine Hcl) 150 Mg Tablet, 150 MG PO DAILY for Heartburn, (Reported) Entered as Reported by: SUMAN HASSAN RN on 07/09/19 0835 Last Action: Converted on 07/09/19 08 by SUMAN HASSAN RN Scheduled PRN Albuterol Sulfate (Proair Hfa Inhaler) 8.5 Gm Hfa.aer.ad, 2 PUFF INH Q4HRS PRN for SHORTNESS OF BREATH, #1 Prescribed by: PITER KIRAN MD on 09/25/16 1054 Last Action: Continued on 07/09/19 0653 by ANGEL LEE MD Ondansetron (Zofran Odt) 4 Mg Tab.rapdis, 1 TAB SL Q6HRS PRN for NAUSEA, #12 Prescribed by: ELEUTERIO TIWARI MD on 06/14/17 0240 Last Action: Continued on 07/09/19 0654 by ANGEL LEE MD Miscellaneous Medications Garlic (Daily Garlic Once-A-Day) 400 Mg Tablet, 400 MG PO, (Reported) Entered as Reported by: SURESH CALVILLO on 06/11/16129 Ubidecarenone/Vit E Acetate (Co Q-10 100 Mg Softgel) 1 Each Capsule, 1 EACH PO, (Reported) Entered as Reported by: SURESH CALVILLO on 06/11/16129 Vitamin B Complex (B Complex) 1 Each Tablet, 1 EACH PO, (Reported) Entered as Reported by: SURESH CALVILLO on 06/11/16129 Last Action: Continued on 07/09/19 06 by ANGEL LEE MD Discontinued Medications Famotidine (Famotidine) 20 Mg Tablet, 20 MG PO BID, (Reported) Entered as Reported by: SURESH CALVILLO on 06/11/16129 Last Action: Discontinued on 07/09/19 0740 by SUMAN HASSAN RN Metoprolol Succinate (Toprol Xl) 50 Mg Tab.er.24h, 1 TAB PO DAILY, #30 Ref 5 (Reported) Entered as Reported by: SURESH CALVILLO on 06/11/16129 Last Action: Discontinued on 07/09/19 0740 by SUMANCAROL PÉREZ CHRISTOPHER S MD Jul 09, 2019 13:56
[2019-07-09 15:02] VITALS: BP 96/58
--- NOTE | 2019-07-09 17:25 | NUR ---
Discharge Note: KATI BOWERS Discharge instructions and discharge home medications reviewed with Patient and a copy given. All questions have been answered and understanding verbalized. The following instructions and handouts were given: Chris, Chest pain, hypertension Patient discharged to Home or Self Care with Self via Ambulated
[2019-07-09] MEDS ORDERED: ATORVASTATIN CALCIUM 20 MG TABLET PO SCH (21:00)
== END 2019-07-09 16:59 | disposition home or self-care (01) ==
LOC: ER 20:23 → 2 SOUTH 23:33
PROVIDERS: ADMIT Family Medicine; ATTEND Family Medicine
DX: R07.89 Other chest pain (principal); F41.9 Anxiety disorder, unspecified; E78.00 Pure hypercholesterolemia, unspecified; C55 Malignant neoplasm of uterus, part unspecified; E78.5 Hyperlipidemia, unspecified; I25.10 Atherosclerotic heart disease of native coronary artery without angina pectoris; K21.9 Gastro-esophageal reflux disease without esophagitis; I25.2 Old myocardial infarction; J44.9 Chronic obstructive pulmonary disease, unspecified; G43.909 Migraine, unspecified, not intractable, without status migrainosus; M19.90 Unspecified osteoarthritis, unspecified site; I12.9 Hypertensive chronic kidney disease with stage 1 through stage 4 chronic kidney disease, or unspecified chronic kidney disease; N18.9 Chronic kidney disease, unspecified; Z90.710 Acquired absence of both cervix and uterus; Z95.5 Presence of coronary angioplasty implant and graft; Z87.11 Personal history of peptic ulcer disease; Z85.42 Personal history of malignant neoplasm of other parts of uterus; Z82.49 Family history of ischemic heart disease and other diseases of the circulatory system; Z79.899 Other long term (current) drug therapy
CPT/HCPCS: 36415; 71045; 80053; 80061; 83880; 84443; 84484; 85025; 85610; 85651; 93005; 93306; 96374; 99284; G0378; J3490; G0379

== ENCOUNTER 2019-12-30 10:36 | Inpatient (IN) | payer MEDICARE, OTHER ==
[~2019-12-30] VITALS: Ht 162.6 cm; Wt 62.5 kg
[~2019-12-30 10:36] MED LIST changes: +ONDA4TAB7 PO; +RANI150T2 PO
--- NOTE | 2019-12-30 11:09 | PHYS DOC ---
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 She saw her doctor approximately 4 days ago. Patient has a history of COPD. She reports increasing cough recently but no fever or chills. No chest pain. She has been using an albuterol inhaler at home. Review of Systems Review of Systems All other ROS is negative unless otherwise stated in HPI Current Medications Current Medications Current Medications Medications (Trade) Dose Ordered Sig/Bo Start Time Stop Time Status Last Admin Dose Admin Albuterol/ Ipratropium (Duoneb) 3 ml 1X ONCE 12/30/19 11:15 12/30/19 11:16 DC 12/30/19 11:18 3 ML Furosemide (Lasix) 20 mg 1X ONCE 12/30/19 12:15 12/30/19 12:16 DC 12/30/19 12:24 20 MG Methylprednisolone Sodium Succinate (SOLU-Medrol 125MG VIAL) 125 mg 1X ONCE 12/30/19 11:15 12/30/19 11:16 DC 12/30/19 11:41 125 MG Sodium Chloride 1,000 ml @ 1,000 mls/hr 1X ONCE 12/30/19 12:00 12/30/19 12:59 12/30/19 11:50 1,000 MLS/HR Allergies Allergies Allergies Coded Allergies Type Severity Reaction Last Updated Verified amlodipine Allergy Intermediate 07/09/19 Yes codeine Allergy Intermediate 09/22/16 Yes lisinopril Allergy Intermediate 07/09/19 Yes Physical Exam Physical Exam See above Constitutional: Well developed, well nourished, no acute distress, non-toxic ap pearance. [] HENT: Normocephalic, atraumatic, bilateral external ears normal, oropharynx moist, no oral exudates, nose normal. [] Eyes: PERRLA, EOMI, conjunctiva normal, no discharge. [] Neck: Normal range of motion, no tenderness, supple, no stridor. [] Cardiovascular:Heart rate regular rhythm, no murmur [] Lungs & Thorax: Decreased air movement throughout with occasional wheezing. Abdomen: Bowel sounds normal, soft, no tenderness, no masses, no pulsatile masses. [] Skin: Warm, dry, no erythema, no rash. [] Back: No tenderness, no CVA tenderness. [] Extremities: No tenderness, no cyanosis, no clubbing, ROM intact, no edema. [] Neurologic: Alert and oriented X 3, normal motor function, normal sensory function, no focal deficits noted. [] Psychologic: Affect normal, judgement normal, mood normal. [] Current Patient Data Vital Signs Vital Signs Date Time Temp Pulse Resp B/P (MAP) Pulse Ox O2 Delivery O2 Flow Rate FiO2 12/30/19 11:22 92 Room Air 12/30/19 10:48 97.9 86 28 119/64 (82) 97.9 Lab Values Laboratory Tests Test 12/30/19 11:05 12/30/19 11:38 White Blood Count 6.0 x10^3/uL (4.0-11.0) Red Blood Count 3.67 x10^6/uL (3.50-5.40) Hemoglobin 11.4 g/dL (12.0-15.5) L Hematocrit 32.6 % (36.0-47.0) L Mean Corpuscular Volume 89 fL (79-100) Mean Corpuscular Hemoglobin 31 pg (25-35) Mean Corpuscular Hemoglobin Concent 35 g/dL (31-37) Red Cell Distribution Width 13.4 % (11.5-14.5) Platelet Count 334 x10^3/uL (140-400) Neutrophils (%) (Auto) 75 % (31-73) H Lymphocytes (%) (Auto) 6 % (24-48) L Monocytes (%) (Auto) 10 % (0-9) H Eosinophils (%) (Auto) 8 % (0-3) H Basophils (%) (Auto) 1 % (0-3) Neutrophils # (Auto) 4.5 x10^3/uL (1.8-7.7) Lymphocytes # (Auto) 0.4 x10^3/uL (1.0-4.8) L Monocytes # (Auto) 0.6 x10^3/uL (0.0-1.1) Eosinophils # (Auto) 0.4 x10^3/uL (0.0-0.7) Basophils # (Auto) 0.0 x10^3/uL (0.0-0.2) Sodium Level 126 mmol/L (136-145) L Potassium Level 4.4 mmol/L (3.5-5.1) Chloride Level 93 mmol/L (98-107) L Carbon Dioxide Level 25 mmol/L (21-32) Anion Gap 8 (6-14) Blood Urea Nitrogen 12 mg/dL (7-20) Creatinine 0.9 mg/dL (0.6-1.0) Estimated GFR (Cockcroft-Gault) 59.5 Glucose Level 114 mg/dL (70-99) H Calcium Level 8.2 mg/dL (8.5-10.1) L Troponin I Quantitative < 0.017 ng/mL (0.000-0.055) WF-Ndd-B-Type Natriuretic Peptide 1165 pg/mL (0-449) H Influenza Type A Antigen Negative (NEGATIVE) Influenza Type B Antigen Negative (NEGATIVE) Laboratory Tests 12/30/19 11:05 Laboratory Tests 12/30/19 11:05 EKG EKG []EKG shows normal sinus rhythm with no ST changes. Intervals are normal and heart rate is 87. Radiology/Procedures Radiology/Procedures CHEST PA LATERAL History: Shortness of air Comparison: July 08, 2019 Findings: 2 views of the chest are submitted. There is no new lobar consolidation, pleural fluid, or pneumothorax. There is atherosclerotic calcification near aortic arch. Heart size is stable. There is probable emphysema. There are some calcified right hilar nodes as seen previously, evidence of old granulomatous disease. There are some calcified bilateral breast implants. Somewhat coarse interstitial opacity bilaterally was in part present previously although likely somewhat increased interstitial opacity near the lung bases. Impression: 1. There is somewhat increased interstitial opacity near the lung bases which could be due to superimposed edema or interstitial infiltrate on background of mild interstitial fibrotic change and emphysema. Electronically signed by: Luis Alberto Espinal MD (12/30/2019 11:23 AM) [id number][] Course & Med Decision Making Course & Med Decision Making Pertinent Labs and Imaging studies reviewed. (See chart for details) 1108: Patient seen for shortness of breath that has been gradually progressing since approximately one week. Distant air sounds. Does not wear home oxygen normally. Oxygen saturation intubated is 92-93% and the patient is in no acute respiratory distress. We'll check labs and obtain chest x-ray. We'll give DuoNeb and Solu-Medrol. 1205: Patient's workup is complete at this time and she appears to be in mild congestive heart failure with elevated BNP and no history of this. Her oxygen saturation has remained 90-91% on room air and she is in no acute distress. Her sodium level is also low at 126 with no history of hyponatremia. I initially ordered 1 L of normal saline but this was quickly stopped after her BNP came back elevated. I will give her a small dose of Lasix, 20 mg IV and the patient will be admitted to the hospitalist. Dragon Disclaimer Dragon Disclaimer This electronic medical record was generated, in whole or in part, using a voice recognition dictation system. Departure Departure Impression: Primary Impression: SOB (shortness of breath) Additional Impressions: Congestive heart failure Hyponatremia Weakness Disposition: ADMITTED INPATIENT Admitting Physician: DESMOND Condition: STABLE Referrals: JOAQUIN ODOM MD (PCP) Problem Qualifiers IRAM YAO DO Dec 30, 2019 11:09
[2019-12-30] MEDS ORDERED: methylPREDNISolone SOD SUCC PF 125 MG/2 ML VIAL. IV ONE (11:15)
[2019-12-30] MEDS ORDERED: IPRATRPIUM/ALBUTEROL 0.5/2.5MG 3 ML NEBU. NEB ONE (11:15)
[2019-12-30 11:20] LABS: BASO % 1 % (0-3); EOS # 0.4 x10^3/uL (0.0-0.7); EOS % 8 % (0-3); HEMATOCRIT 32.6 % (36.0-47.0); HEMOGLOBIN 11.4 g/dL (12.0-15.5); LYMPH # 0.4 x10^3/uL (1.0-4.8); LYMPH % 6 % (24-48); MEAN CORPUSCULAR HEMOGLOBIN 31 pg (25-35); MEAN CORPUSCULAR HGB CONC 35 g/dL (31-37); MEAN CORPUSCULAR VOLUME 89 fL (79-100); MONO # 0.6 x10^3/uL (0.0-1.1); MONO % 10 % (0-9); NEUT # 4.5 x10^3/uL (1.8-7.7); NEUT % 75 % (31-73); PLATELET COUNT 334 x10^3/uL (140-400); RED BLOOD COUNT 3.67 x10^6/uL (3.50-5.40); RED CELL DISTRIBUTION WIDTH 13.4 % (11.5-14.5)
--- NOTE | 2019-12-30 11:26 | RAD ---
CHEST PA LATERAL History: Shortness of air Comparison: July 08, 2019 Findings: 2 views of the chest are submitted. There is no new lobar consolidation, pleural fluid, or pneumothorax. There is atherosclerotic calcification near aortic arch. Heart size is stable. There is probable emphysema. There are some calcified right hilar nodes as seen previously, evidence of old granulomatous disease. There are some calcified bilateral breast implants. Somewhat coarse interstitial opacity bilaterally was in part present previously although likely somewhat increased interstitial opacity near the lung bases. Impression: 1. There is somewhat increased interstitial opacity near the lung bases which could be due to superimposed edema or interstitial infiltrate on background of mild interstitial fibrotic change and emphysema. Electronically signed by: Luis Alberto Espinal MD (12/30/2019 11:23 AM) [id number]
[2019-12-30 11:41] LABS: CALCIUM 8.2 mg/dL (8.5-10.1); CREATININE 0.9 mg/dL (0.6-1.0); GFR 59.5; POTASSIUM 4.4 mmol/L (3.5-5.1)
[2019-12-30] MEDS ORDERED: IV NORMAL SALINE 1000ML BAG 1,000 ML IV ONE (12:00)
[2019-12-30] MEDS ORDERED: FUROSEMIDE 20 MG/2 ML VIAL. IVP ONE (12:15)
[2019-12-30 12:32] LABS: INFLUENZA A PATIENT NEGATIVE (NEGATIVE); INFLUENZA B PATIENT NEGATIVE (NEGATIVE)
--- NOTE | 2019-12-30 16:11 | PDOC1 ---
History and Physical Date of Admission: Date of Admission DATE: 12/30/19 TIME: 16:08 Chief Complaint: Problems: (1) Wheezing (2) Dizziness (3) Anxiety (4) Dyspnea (5) Dysphagia (6) Nausea & vomiting (7) Gastroparesis (8) Chest pain (9) Congestive heart failure (10) SOB (shortness of breath) (11) Hyponatremia (12) Weakness Chief Complain: Shortness of breath History of Present Illness: HPI: This is an elderly white female who presented to the ER with shortness of breath This is been occurring for several weeks She did see her primary care doctor 4 days ago They made some med changes She also increased some of the [id number] meds she's been taking Moving makes it worse sitting still makes it better Describes as very irritating [place] the ER she's noted to be in acute on chronic systolic and diastolic heart failure She also has hyponatremia I discussed the case with the ER physician We plan to admit with consultation to cardiology and to correct her lactic Past Medical/Surgical History: PMH/PSH: Past Medical History: Anxiety, CAD, High Cholesterol, Hypertension, Other Additional Past Medical Histor: 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 AND CERVICAL CANCER Past Surgical History: Hysterectomy, Other Additional Past Surgical Histo: PTCA W/ STENTS X3 2007 Smoking Status: Former Smoker Additional Information: quit smoking 2009 Alcohol Use: None Drug Use: None Allergies: Allergies: Coded Allergies: amlodipine (Verified Allergy, Intermediate, 07/09/19) palpitations, swelling in legs codeine (Verified Allergy, Intermediate, 09/22/16) lisinopril (Verified Allergy, Intermediate, 07/09/19) cough Family History: Family History: Hypertension and diabetes Social History: Social Hisoty: She doesn't drink smoke or take drugs she is retired Current Medications: Current Medications Current Medications Albuterol/ Ipratropium (Duoneb) 3 ml 1X ONCE NEB Last administered on 12/30/19at 11:18; Start 12/30/19 at 11:15; Stop 12/30/19 at 11:16; Status DC Methylprednisolone Sodium Succinate (SOLU-Medrol 125MG VIAL) 125 mg 1X ONCE IV Last administered on 12/30/19at 11:41; Start 12/30/19 at 11:15; Stop 12/30/19 at 11:16; Status DC Sodium Chloride 1,000 ml @ 1,000 mls/hr 1X ONCE IV Last administered on 12/30/19at 11:50; Start 12/30/19 at 12:00; Stop 12/30/19 at 12:59; Status DC Furosemide (Lasix) 20 mg 1X ONCE IVP Last administered on 12/30/19at 12:24; Start 12/30/19 at 12:15; Stop 12/30/19 at 12:16; Status DC Active Scripts Active Zofran (Ondansetron Hcl) 4 Mg Tablet 1 Tab PO Q6HRS 30 Days Zofran Odt (Ondansetron) 4 Mg Tab.rapdis 1 Tab SL Q6HRS PRN Proair Hfa Inhaler (Albuterol Sulfate) 8.5 Gm Hfa.aer.ad 2 Puff INH Q4HRS PRN Aspirin Ec (Aspirin) 81 Mg Tablet. 81 Mg PO DAILYWBKFT Reported Ranitidine Hcl 150 Mg Tablet 150 Mg PO DAILY Magnesium (Magnesium Oxide) 400 Mg Capsule 1 Cap PO BID Furosemide 20 Mg Tablet 1 Tab PO DAILY Co Q-10 100 Mg Softgel (Ubidecarenone/Vit E Acetate) 1 Each Capsule 1 Each PO B Complex (Vitamin B Complex) 1 Each Tablet 1 Each PO Daily Garlic Once-A-Day (Garlic) 400 Mg Tablet 400 Mg PO Atorvastatin Calcium 20 Mg Tablet 1 Tab PO QHS Alprazolam 0.5 Mg Tablet 1 Tab PO BID Losartan Potassium 100 Mg Tablet 100 Mg PO DAILY ROS: Review of Systems Review of System REVIEW OF SYSTEMS: GENERAL: Denies weakness SKIN: No bruising, hair changes or rashes. EYES: No blurred, double or loss of vision. NOSE AND THROAT: No history of nosebleeds, hoarseness or sore throat. HEART: No history of palpitations, chest pain or shortness of breath on exertion. LUNGS: Complains of shortness of breath GASTROINTESTINAL: Denies changes in appetite, nausea, vomiting, diarrhea or constipation. GENITOURINARY: No history of frequency, urgency, hesitancy or nocturia. NEUROLOGIC: Denies history of numbness, tingling, or tremor. PSYCHIATRIC: No history of panic, anxiety or depression. ENDOCRINE: No history of heat or cold intolerance, polyuria or polydipsia. EXTREMITIES: Denies joint pain, pain on walking or stiffness. Physical Exam: Vital Signs: Vital Signs Date Time Temp Pulse Resp B/P (MAP) Pulse Ox O2 Delivery O2 Flow Rate FiO2 12/30/19 14:14 97 21 101/57 (72) 91 Nasal Cannula 2.0 12/30/19 10:48 97.9 97.9 Physcial Exam: GEN: No apparent distress. Alert and oriented HEENT: Normal cephalic, atraumatic, external auditory canals are patent EYES: Extraocular muscles are intact, pupil are equally round and reactive to light and accommodation MUSCULOSKELETAL: Well developed , well nourished, good range of motion ENDOCRINE: No thyromegaly was palpated LYMPHATICS: No cervical chain or axillary nodes were noted HEMATOPOIETIC: No bruising NECK: Supple, no JVD, no thyromegaly was noted LUNGS: Bibasilar crackles HEART: RRR, S!, S2 present. Peripheral pulses intact, no obvious murmurs noted ABDOMEN: Soft, nontender. Positive bowel sounds, no organomegaly, normal bowel sounds EXTREMITIES: Without clubbing, cyanosis, or edema. Pedal pulses intact. Negative Homans sign NEUROLOGIC: Normal speech and tone. A&O x 3, moves all extremities, no obvious focal deficits PSYCHIATRIC: Normal affect, normal mood. Stable SKIN: No ulcerations or rashes, good skin turgor, no jaundice VASCULAR: Good capillary refill, neurovascular bundle appears to be intact Labs: Labs: Laboratory Tests Test 12/30/19 11:05 12/30/19 11:38 White Blood Count 6.0 x10^3/uL (4.0-11.0) Red Blood Count 3.67 x10^6/uL (3.50-5.40) Hemoglobin 11.4 g/dL (12.0-15.5) Hematocrit 32.6 % (36.0-47.0) Mean Corpuscular Volume 89 fL (79-100) Mean Corpuscular Hemoglobin 31 pg (25-35) Mean Corpuscular Hemoglobin Concent 35 g/dL (31-37) Red Cell Distribution Width 13.4 % (11.5-14.5) Platelet Count 334 x10^3/uL (140-400) Neutrophils (%) (Auto) 75 % (31-73) Lymphocytes (%) (Auto) 6 % (24-48) Monocytes (%) (Auto) 10 % (0-9) Eosinophils (%) (Auto) 8 % (0-3) Basophils (%) (Auto) 1 % (0-3) Neutrophils # (Auto) 4.5 x10^3/uL (1.8-7.7) Lymphocytes # (Auto) 0.4 x10^3/uL (1.0-4.8) Monocytes # (Auto) 0.6 x10^3/uL (0.0-1.1) Eosinophils # (Auto) 0.4 x10^3/uL (0.0-0.7) Basophils # (Auto) 0.0 x10^3/uL (0.0-0.2) Sodium Level 126 mmol/L (136-145) Potassium Level 4.4 mmol/L (3.5-5.1) Chloride Level 93 mmol/L (98-107) Carbon Dioxide Level 25 mmol/L (21-32) Anion Gap 8 (6-14) Blood Urea Nitrogen 12 mg/dL (7-20) Creatinine 0.9 mg/dL (0.6-1.0) Estimated GFR (Cockcroft-Gault) 59.5 Glucose Level 114 mg/dL (70-99) Calcium Level 8.2 mg/dL (8.5-10.1) Troponin I Quantitative < 0.017 ng/mL (0.000-0.055) MG-Xfp-A-Type Natriuretic Peptide 1165 pg/mL (0-449) Influenza Type A Antigen Negative (NEGATIVE) Influenza Type B Antigen Negative (NEGATIVE) Laboratory Tests Test 12/30/19 11:05 12/30/19 11:38 White Blood Count 6.0 x10^3/uL (4.0-11.0) Red Blood Count 3.67 x10^6/uL (3.50-5.40) Hemoglobin 11.4 g/dL (12.0-15.5) Hematocrit 32.6 % (36.0-47.0) Mean Corpuscular Volume 89 fL (79-100) Mean Corpuscular Hemoglobin 31 pg (25-35) Mean Corpuscular Hemoglobin Concent 35 g/dL (31-37) Red Cell Distribution Width 13.4 % (11.5-14.5) Platelet Count 334 x10^3/uL (140-400) Neutrophils (%) (Auto) 75 % (31-73) Lymphocytes (%) (Auto) 6 % (24-48) Monocytes (%) (Auto) 10 % (0-9) Eosinophils (%) (Auto) 8 % (0-3) Basophils (%) (Auto) 1 % (0-3) Neutrophils # (Auto) 4.5 x10^3/uL (1.8-7.7) Lymphocytes # (Auto) 0.4 x10^3/uL (1.0-4.8) Monocytes # (Auto) 0.6 x10^3/uL (0.0-1.1) Eosinophils # (Auto) 0.4 x10^3/uL (0.0-0.7) Basophils # (Auto) 0.0 x10^3/uL (0.0-0.2) Sodium Level 126 mmol/L (136-145) Potassium Level 4.4 mmol/L (3.5-5.1) Chloride Level 93 mmol/L (98-107) Carbon Dioxide Level 25 mmol/L (21-32) Anion Gap 8 (6-14) Blood Urea Nitrogen 12 mg/dL (7-20) Creatinine 0.9 mg/dL (0.6-1.0) Estimated GFR (Cockcroft-Gault) 59.5 Glucose Level 114 mg/dL (70-99) Calcium Level 8.2 mg/dL (8.5-10.1) Troponin I Quantitative < 0.017 ng/mL (0.000-0.055) [place]-Aox-C-Type Natriuretic Peptide 1165 pg/mL (0-449) Influenza Type A Antigen Negative (NEGATIVE) Influenza Type B Antigen Negative (NEGATIVE) Images: Images Chest x-ray shows heart failure Assessment/Plan Assessment/Plan Acute on chronic systolic and diastolic heart failure Hyponatremia Plan Cardiac monitoring Serial enzymes Serial EKGs Echocardiogram Corrector potassium with IV saline Consult cardiology Home meds DVT prophylaxis IV Lasix Full code Prognosis extremely guarded MAYKEL CAMPA III DO Dec 30, 2019 16:11
--- NOTE | 2019-12-30 16:39 | EKG ---
[facility] [address] [place] [address] Test Date: 2019-12-30 Test Time: 14:56:22 Pat Name: KATI BOWERS Department: Room: ED HOLD 3 Gender: F [employer]: : 1935 Requested By: IRAM YAO Order Number: [id number] Reading MD: Measurements Intervals [place] Rate: 100 P: -168 CA: 132 QRS: 142 QRSD: 94 T: 143 QT: 354 QTc: 460 Interpretive Statements SUPRAVENTRICULAR RHYTHM LEFT ATRIAL ABNORMALITY ABNORMAL RIGHT AXIS DEVIATION QRS(T) CONTOUR ABNORMALITY CONSIDER INFERIOR INFARCT T ABNORMALITY IN ANTERIOR LEADS LATERAL LEADS ABNORMAL ECG RI6.01 No previous ECG available for comparison
[2019-12-30] MEDS ORDERED: BIOT1CAP3 PO (22:07)
[2019-12-30] MEDS ORDERED: FLUT9.9S NS (22:07)
[2019-12-30] MEDS ORDERED: FEXO180T81 PO (22:07)
[2019-12-30 22:15] VITALS: BP 134/70
[2019-12-30] MEDS ORDERED: ALPR0.254 PO (23:14)
[2019-12-30] MEDS ORDERED: ALPRAZolam 0.25 MG TABLET PO PRN (23:15)
[2019-12-30] MEDS ORDERED: ALBUTEROL SULFATE 2.5 MG/3 ML NEBU. NEB PRN (23:15)
[2019-12-30] MEDS: ALPRAZolam 0.5 MG TABLET PO SCH (23:55)
[2019-12-31] MEDS: FLUTICASONE 50MCG/NASAL SPRAY 16GM BOTTLE. NS SCH ×2 (00:01→08:24)
[2019-12-31] MEDS: CETIRIZINE HCL 10 MG TABLET. PO SCH ×2 (00:01→08:23)
[2019-12-31 03:48] VITALS: BP 119/70
[2019-12-31 07:00] VITALS: BP 116/69
[2019-12-31] MEDS: FAMOTIDINE 20 MG TABLET. PO SCH (08:24)
[2019-12-31] MEDS: ALPRAZolam 0.5 MG TABLET PO SCH ×2 (08:24→20:37)
[2019-12-31] MEDS ORDERED: [UNRECOGNIZED DRUG - REMARK] PO SCH (09:00)
[2019-12-31] MEDS ORDERED: NON FORMULARY ITEM (Fluticasone Propionate (Flonase Allergy Relief) 2 SPRAYS) NS SCH (09:00)
[2019-12-31] MEDS ORDERED: ALPRAZolam 0.5 MG TABLET PO SCH (09:00)
--- NOTE | 2019-12-31 10:18 | NUR ---
SS following for discharge planning. SS reviewed pt chart. Pt is from home with daughter and is currently requiring oxygen. SS will continue to follow for discharge planning.
[2019-12-31 10:51] VITALS: BP 116/69
--- NOTE | 2019-12-31 10:52 | PDOC ---
PROGRESS NOTES History of Present Illness History of Present Illness Images: Images Chest x-ray shows heart failure Assessment/Plan Assessment/Plan Acute on chronic systolic and diastolic heart failure acute on chronic diastolic CHF; improved with diuresis. Echo 06/2019 with preserved LV systolic function superimposed edema or interstitial infiltrate on background of mild interstitial fibrotic change and emphysema. Hyponatremia acute hypoxic resp failure Dilatation of the ascending aorta at 4.[address] GERD Plan Cardiac monitoring Serial enzymes Serial EKGs Echocardiogram Correct potassium with IV saline Consult cardiology Home meds DVT prophylaxis IV Lasix Full code Prognosis guarded bmp today o2 support ct chest today Vitals Vitals Vital Signs Date Time Temp Pulse Resp B/P (MAP) Pulse Ox O2 Delivery O2 Flow Rate FiO2 12/31/19 10:30 95 Nasal Cannula 2.0 12/31/19 07:00 97.5 73 18 116/69 (85) 97.5 Physical Exam Physical Exam GEN: No apparent distress. Alert and oriented HEENT: Normal cephalic, atraumatic, external auditory canals are patent EYES: Extraocular muscles are intact, pupil are equally round and reactive to light and accommodation MUSCULOSKELETAL: Well developed , well nourished, good range of motion ENDOCRINE: No thyromegaly was palpated LYMPHATICS: No cervical chain or axillary nodes were noted HEMATOPOIETIC: No bruising NECK: Supple, no JVD, no thyromegaly was noted LUNGS: Bibasilar crackles HEART: RRR, S!, S2 present. Peripheral pulses intact, no obvious murmurs noted ABDOMEN: Soft, nontender. Positive bowel sounds, no organomegaly, normal bowel sounds EXTREMITIES: Without clubbing, cyanosis, or edema. Pedal pulses intact. Negative Homans sign NEUROLOGIC: Normal speech and tone. A&O x 3, moves all extremities, no obvious focal deficits PSYCHIATRIC: Normal affect, normal mood. Stable SKIN: No ulcerations or rashes, good skin turgor, no jaundice General: Alert, Oriented X3, Cooperative, No acute distress Lungs: Clear, Other Abdomen: Normal bowel sounds, Soft Extremities: No clubbing, No cyanosis Labs LABS LEFT VENTRICLE The left ventricle is normal size. There is normal left ventricular wall thickness. The left ventricular systolic function is normal. The ejection fraction is 50-55% There is normal LV segmental wall motion. Transmitral Doppler flow pattern is Grade I-abnormal relaxation pattern. RIGHT VENTRICLE The right ventricle is normal size. The right ventricular systolic function is normal. ATRIA The left atrium size is normal. The right atrium size is normal. The interatrial septum is intact with no evidence for an atrial septal defect or patent foramen ovale as noted on 2-D or Doppler imaging. AORTIC VALVE The aortic valve is calcified but opens well. Doppler and Color Flow revealed mild aortic regurgitation. There is no significant aortic valvular stenosis. MITRAL VALVE The mitral valve is calcified but opens well. Mitral annular calcification is mild. There is no evidence of mitral valve prolapse. There is no mitral valve stenosis. Doppler and Color-flow revealed mild mitral regurgitation. TRICUSPID VALVE The tricuspid valve is normal in structure and function. Doppler and Color Flow revealed trace to mild tricuspid regurgitation The PA pressure was estimated at 33 mmHg. There is no tricuspid valve stenosis. PULMONIC VALVE The pulmonic valve is not well visualized. Doppler and Color Flow revealed trace pulmonic valvular regurgitation. There is no pulmonic valvular stenosis. GREAT VESSELS The aortic root is normal in size. The ascending aorta is normal in size. The IVC is normal in size and collapses >50% with inspiration. PERICARDIAL EFFUSION There is no evidence of significant pericardial effusion. Critical Notification Critical Value: No <Conclusion> The left ventricle is normal size. The left ventricular systolic function is normal. The ejection fraction is 50-55% There is no significant aortic valvular stenosis. Doppler and Color Flow revealed mild aortic regurgitation. Doppler and Color-flow revealed mild mitral regurgitation. Doppler and Color Flow revealed trace to mild tricuspid regurgitation The PA pressure was estimated at 33 mmHg. Signed by : Estiven Mayes MD Electronically Approved : 07/09/2019 13:02:24 DICTATED and SIGNED BY: ESTIVEN MAYES MD DATE: 07/09/[address] angiogram chest with contrast: Reason for examination: Shortness of breath with chest pain. Helical images were obtained through the chest with intravenous administration of 60 cc Omnipaque 350 using PE protocol. 3-D MIPS reconstruction was performed in sagittal and coronal planes. Exposure: One or more of the following individualized dose reduction techniques were utilized for this examination: 1. Automated exposure control 2. Adjustment of the mA and/or kV according to patient size 3. Use of iterative reconstruction technique. No abnormality seen at the thyroid gland. The trachea and mainstem bronchi show no intraluminal lesions. There is a small hiatal hernia. The thoracic aorta shows some mild dilatation in the ascending aorta at 4.4 cm. There is no dissection evident. The heart size is normal with no pericardial effusion. No pulmonary embolus is evident. The lung mason show some bullous emphysematous changes. There also appears to be spiculated appearing mass in the right upper left upper lobe measuring approximately 2 x 1 cm in transverse and craniocaudal dimensions. Malignancy cannot be excluded. No pneumothorax or pleural effusions are seen. No abnormality seen in the visualized portions of the liver, spleen or adrenal glands. IMPRESSION: Small hiatal hernia. Dilatation of the ascending aorta at 4.4 cm. No pulmonary embolus evident. Emphysematous changes with a 2 x 1 cm spiculated appearing lesion in the left apex. Malignancy cannot be excluded. Electronically signed by: Antonio Morrison MD (06/15/2017 2:14 AM) [id number] DICTATED and SIGNED BY: ANTONIO MORRISON MD DATE: 06/15/17 0130 CHEST PA LATERAL History: Shortness of air Comparison: July 08, 2019 Findings: 2 views of the chest are submitted. There is no new lobar consolidation, pleural fluid, or pneumothorax. There is atherosclerotic calcification near aortic arch. Heart size is stable. There is probable emphysema. There are some calcified right hilar nodes as seen previously, evidence of old granulomatous disease. There are some calcified bilateral breast implants. Somewhat coarse interstitial opacity bilaterally was in part present previously although likely somewhat increased interstitial opacity near the lung bases. Impression: 1. There is somewhat increased interstitial opacity near the lung bases which could be due to superimposed edema or interstitial infiltrate on background of mild interstitial fibrotic change and emphysema. Electronically signed by: Mo Moody MD (12/30/2019 11:23 AM) [id number] DICTATED and SIGNED BY: MO MOODY MD DATE: 12/30/19 1123 Laboratory Tests Test 12/30/19 11:05 12/30/19 11:38 White Blood Count 6.0 x10^3/uL (4.0-11.0) Red Blood Count 3.67 x10^6/uL (3.50-5.40) Hemoglobin 11.4 g/dL (12.0-15.5) Hematocrit 32.6 % (36.0-47.0) Mean Corpuscular Volume 89 fL (79-100) Mean Corpuscular Hemoglobin 31 pg (25-35) Mean Corpuscular Hemoglobin Concent 35 g/dL (31-37) Red Cell Distribution Width 13.4 % (11.5-14.5) Platelet Count 334 x10^3/uL (140-400) Neutrophils (%) (Auto) 75 % (31-73) Lymphocytes (%) (Auto) 6 % (24-48) Monocytes (%) (Auto) 10 % (0-9) Eosinophils (%) (Auto) 8 % (0-3) Basophils (%) (Auto) 1 % (0-3) Neutrophils # (Auto) 4.5 x10^3/uL (1.8-7.7) Lymphocytes # (Auto) 0.4 x10^3/uL (1.0-4.8) Monocytes # (Auto) 0.6 x10^3/uL (0.0-1.1) Eosinophils # (Auto) 0.4 x10^3/uL (0.0-0.7) Basophils # (Auto) 0.0 x10^3/uL (0.0-0.2) Sodium Level 126 mmol/L (136-145) Potassium Level 4.4 mmol/L (3.5-5.1) Chloride Level 93 mmol/L (98-107) Carbon Dioxide Level 25 mmol/L (21-32) Anion Gap 8 (6-14) Blood Urea Nitrogen 12 mg/dL (7-20) Creatinine 0.9 mg/dL (0.6-1.0) Estimated GFR (Cockcroft-Gault) 59.5 Glucose Level 114 mg/dL (70-99) Calcium Level 8.2 mg/dL (8.5-10.1) Troponin I Quantitative < 0.017 ng/mL (0.000-0.055) PG-Lci-J-Type Natriuretic Peptide 1165 pg/mL (0-449) Influenza Type A Antigen Negative (NEGATIVE) Influenza Type B Antigen Negative (NEGATIVE) Assessment and Plan Assessmemt and Plan Problems Medical Problems: (1) Congestive heart failure Status: Acute (2) Hyponatremia Status: Acute (3) SOB (shortness of breath) Status: Acute (4) Weakness Status: Acute Comment Review of Relevant I have reviewed the following items zora (where applicable) has been applied. Labs Laboratory Tests Test 12/30/19 11:05 12/30/19 11:38 White Blood Count 6.0 x10^3/uL (4.0-11.0) Red Blood Count 3.67 x10^6/uL (3.50-5.40) Hemoglobin 11.4 g/dL (12.0-15.5) Hematocrit 32.6 % (36.0-47.0) Mean Corpuscular Volume 89 fL (79-100) Mean Corpuscular Hemoglobin 31 pg (25-35) Mean Corpuscular Hemoglobin Concent 35 g/dL (31-37) Red Cell Distribution Width 13.4 % (11.5-14.5) Platelet Count 334 x10^3/uL (140-400) Neutrophils (%) (Auto) 75 % (31-73) Lymphocytes (%) (Auto) 6 % (24-48) Monocytes (%) (Auto) 10 % (0-9) Eosinophils (%) (Auto) 8 % (0-3) Basophils (%) (Auto) 1 % (0-3) Neutrophils # (Auto) 4.5 x10^3/uL (1.8-7.7) Lymphocytes # (Auto) 0.4 x10^3/uL (1.0-4.8) Monocytes # (Auto) 0.6 x10^3/uL (0.0-1.1) Eosinophils # (Auto) 0.4 x10^3/uL (0.0-0.7) Basophils # (Auto) 0.0 x10^3/uL (0.0-0.2) Sodium Level 126 mmol/L (136-145) Potassium Level 4.4 mmol/L (3.5-5.1) Chloride Level 93 mmol/L (98-107) Carbon Dioxide Level 25 mmol/L (21-32) Anion Gap 8 (6-14) Blood Urea Nitrogen 12 mg/dL (7-20) Creatinine 0.9 mg/dL (0.6-1.0) Estimated GFR (Cockcroft-Gault) 59.5 Glucose Level 114 mg/dL (70-99) Calcium Level 8.2 mg/dL (8.5-10.1) Troponin I Quantitative < 0.017 ng/mL (0.000-0.055) TE-Ulb-G-Type Natriuretic Peptide 1165 pg/mL (0-449) Influenza Type A Antigen Negative (NEGATIVE) Influenza Type B Antigen Negative (NEGATIVE) Laboratory Tests Test 12/30/19 11:05 12/30/19 11:38 White Blood Count 6.0 x10^3/uL (4.0-11.0) Red Blood Count 3.67 x10^6/uL (3.50-5.40) Hemoglobin 11.4 g/dL (12.0-15.5) Hematocrit 32.6 % (36.0-47.0) Mean Corpuscular Volume 89 fL (79-100) Mean Corpuscular Hemoglobin 31 pg (25-35) Mean Corpuscular Hemoglobin Concent 35 g/dL (31-37) Red Cell Distribution Width 13.4 % (11.5-14.5) Platelet Count 334 x10^3/uL (140-400) Neutrophils (%) (Auto) 75 % (31-73) Lymphocytes (%) (Auto) 6 % (24-48) Monocytes (%) (Auto) 10 % (0-9) Eosinophils (%) (Auto) 8 % (0-3) Basophils (%) (Auto) 1 % (0-3) Neutrophils # (Auto) 4.5 x10^3/uL (1.8-7.7) Lymphocytes # (Auto) 0.4 x10^3/uL (1.0-4.8) Monocytes # (Auto) 0.6 x10^3/uL (0.0-1.1) Eosinophils # (Auto) 0.4 x10^3/uL (0.0-0.7) Basophils # (Auto) 0.0 x10^3/uL (0.0-0.2) Sodium Level 126 mmol/L (136-145) Potassium Level 4.4 mmol/L (3.5-5.1) Chloride Level 93 mmol/L (98-107) Carbon Dioxide Level 25 mmol/L (21-32) Anion Gap 8 (6-14) Blood Urea Nitrogen 12 mg/dL (7-20) Creatinine 0.9 mg/dL (0.6-1.0) Estimated GFR (Cockcroft-Gault) 59.5 Glucose Level 114 mg/dL (70-99) Calcium Level 8.2 mg/dL (8.5-10.1) Troponin I Quantitative < 0.017 ng/mL (0.000-0.055) SY-Vcr-W-Type Natriuretic Peptide 1165 pg/mL (0-449) Influenza Type A Antigen Negative (NEGATIVE) Influenza Type B Antigen Negative (NEGATIVE) Medications Current Medications Albuterol/ Ipratropium (Duoneb) 3 ml 1X ONCE NEB Last administered on 12/30/19at 11:18; Start 12/30/19 at 11:15; Stop 12/30/19 at 11:16; Status DC Methylprednisolone Sodium Succinate (SOLU-Medrol 125MG VIAL) 125 mg 1X ONCE IV Last administered on 12/30/19at 11:41; Start 12/30/19 at 11:15; Stop 12/30/19 at 11:16; Status DC Sodium Chloride 1,000 ml @ 1,000 mls/hr 1X ONCE IV Last administered on 12/30/19at 11:50; Start 12/30/19 at 12:00; Stop 12/30/19 at 12:59; Status DC Furosemide (Lasix) 20 mg 1X ONCE IVP Last administered on 12/30/19at 12:24; Start 12/30/19 at 12:15; Stop 12/30/19 at 12:16; Status DC Famotidine (Pepcid) 20 mg DAILY PO Last administered on 12/31/19at 08:24; Start 12/31/19 at 09:00 Alprazolam (Xanax) 0.25 mg PRN DAILY PRN PO ANXIETY / AGITATION; Start 12/30/19 at 23:15 Alprazolam (Xanax) 0.5 mg BID PO ; Start 12/31/19 at 09:00; Stop 12/30/19 at 23:18; Status DC Albuterol Sulfate (Ventolin Neb Soln) 2.5 mg PRN Q6HRS PRN NEB SHORTNESS OF BREATH; Start 12/30/19 at 23:15 Alprazolam (Xanax) 0.5 mg BID PO Last administered on 12/31/19at 08:24; Start 12/30/19 at 23:30 Non-Formulary Medication (Fexofenadine Hcl (Clarisa Allergy)) 180 mg DAILY PO ; Start 12/31/19 at 09:00; Stop 12/30/19 at 23:47; Status DC Non-Formulary Medication (Fluticasone Propionate (Flonase Allergy Relief)) 2 s prays DAILY NS ; Start 12/31/19 at 09:00; Stop 12/30/19 at 23:47; Status DC Cetirizine HCl (ZyrTEC) 10 mg DAILY PO Last administered on 12/31/19at 08:23; Start 12/31/19 at 00:00 Fluticasone Propionate (Flonase) 2 spray DAILY NS Last administered on at 08:24; Start 12/31/19 at 00:00 Active Scripts Active Proair Hfa Inhaler (Albuterol Sulfate) 8.5 Gm Hfa.aer.ad 2 Puff INH Q4HRS PRN Aspirin Ec (Aspirin) 81 Mg Tablet.dr 81 Mg PO DAILYWBKFT Reported Alprazolam 0.25 Mg Tablet 0.25 Mg PO PRN DAILY PRN Clarisa Allergy (Fexofenadine Hcl) 180 Mg Tablet 180 Mg PO DAILY Flonase Allergy Relief (Fluticasone Propionate) 9.9 Ml Brooks.susp 2 Sprays NS DAILY Biotin 1 Mg Capsule 1 Tab PO DAILY Ranitidine Hcl 150 Mg Tablet 150 Mg PO BID Magnesium (Magnesium Oxide) 400 Mg Capsule 1 Cap PO BID Furosemide 20 Mg Tablet 1 Tab PO DAILY Co Q-10 100 Mg Softgel (Ubidecarenone/Vit E Acetate) 1 Each Capsule 1 Each PO B Complex (Vitamin B Complex) 1 Each Tablet 1 Each PO Atorvastatin Calcium 20 Mg Tablet 1 Tab PO QHS Alprazolam 0.5 Mg Tablet 1 Tab PO BID Losartan Potassium 100 Mg Tablet 100 Mg PO DAILY Vitals/I & O Vital Sign - Last 24 Hours 12/30/19 12/30/19 12/30/19 12/30/19 11:22 11:34 11:44 12:14 Pulse 91 88 92 B/P (MAP) 106/59 (75) 116/54 (74) 113/56 (75) Pulse Ox 92 90 91 90 O2 Delivery Room Air Room Air Room Air Room Air 12/30/19 12/30/19 12/30/19 12/30/19 12:44 13:16 13:44 14:14 Pulse 90 101 100 97 Resp 17 21 B/P (MAP) 108/53 (71) 119/66 (83) 103/71 (82) 101/57 (72) Pulse Ox 95 92 92 91 O2 Delivery Nasal Cannula Nasal Cannula Nasal Cannula Nasal Cannula O2 Flow Rate 2.0 2.0 2.0 2.0 12/30/19 12/30/19 12/30/19 12/30/19 15:00 15:30 16:00 16:30 Pulse 104 98 96 96 Resp 20 20 18 B/P (MAP) 117/63 (81) 118/69 (85) 114/69 (84) 119/78 (92) Pulse Ox 93 94 93 94 O2 Delivery Nasal Cannula Nasal Cannula Nasal Cannula Nasal Cannula O2 Flow Rate 2.0 2.0 2.0 2.0 12/30/19 12/30/19 12/30/19 12/30/19 17:14 18:14 19:14 20:14 Pulse 93 88 92 90 Resp 18 18 18 18 B/P (MAP) 109/70 (83) 100/77 (85) 115/63 (80) 114/54 (74) Pulse Ox 96 98 93 95 O2 Delivery Nasal Cannula Nasal Cannula Nasal Cannula Nasal Cannula O2 Flow Rate 2.0 2.0 2.0 2.0 12/30/19 12/30/19 12/30/19 12/31/19 21:14 22:00 22:15 00:06 Temp 97.5 97.5 Pulse 90 89 Resp 18 20 18 B/P (MAP) 116/61 (79) 134/70 (91) Pulse Ox 95 96 93 O2 Delivery Nasal Cannula Nasal Cannula Nasal Cannula Nasal Cannula O2 Flow Rate 2.0 3.0 3.0 2.0 12/31/19 12/31/19 12/31/19 12/31/19 03:48 07:00 08:00 10:29 Temp 98.0 97.5 98.0 97.5 Pulse 75 73 Resp 18 18 B/P (MAP) 119/70 (86) 116/69 (85) Pulse Ox 94 92 O2 Delivery Nasal Cannula Nasal Cannula Nasal Cannula Nasal Cannula O2 Flow Rate 2.0 2.0 2.0 2.0 12/31/19 10:30 Pulse Ox 95 O2 Delivery Nasal Cannula O2 Flow Rate 2.0 Intake and Output 12/30/19 12/30/19 12/31/19 15:00 23:00 07:00 Intake Total 300 ml 0 ml 200 ml Output Total 300 ml Balance 0 ml 0 ml 200 ml RAMÓN ROTH MD Dec 31, 2019 10:52
--- NOTE | 2019-12-31 12:18 | EKG ---
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
--- NOTE | 2019-12-31 12:34 | PDOC2 ---
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 Rodriguez SOURCE Source: Chart review, Patient HISTORY OF PRESENT ILLNESS HISTORY OF PRESENT ILLNESS This is an 84 yo female who presented secondary to shortness of breath. Has been present over the last week. No LE edema. No chest pain, palpitations, dizziness, diaphoresis, or nausea/vomiting. Has son dying of CHF, whom she has been very concerned about recently. PAST MEDICAL HISTORY Past Medical History Cardiovascular: CAD, HTN, Hyperlipidemia Pulmonary: COPD CENTRAL NERVOUS SYSTEM: Migraine GI: GERD Heme/Onc: Cancer (uterine) Psych: Anxiety Musculoskeletal: Osteoarthritis Rheumatologic: No pertinent hx Infectious disease: No pertinent hx ENT: No pertinent hx Renal/: No pertinent hx Endocrine: No pertinent hx Dermatology: Basal cell PAST SURGICAL HISTORY Past Surgical History Mohs surgery, Nasal Reconstructive Surgery, PCI/stent x3 10 yrs ago, Hysterectomy FAMILY HISTORY Family History: Other (noncontributory to age ) SOCIAL HISTORY Social History Smoke: No ALCOHOL: none Drugs: None Lives: with daughter CURRENT MEDICATIONS CURRENT MEDICATIONS Current Medications Medications (Trade) Dose Ordered Sig/Bo Route PRN Reason Start Time Stop Time Status Last Admin Dose Admin Famotidine (Pepcid) 20 mg DAILY PO 12/31/19 09:00 12/31/19 08:24 Alprazolam (Xanax) 0.5 mg BID PO 12/30/19 23:30 12/31/19 08:24 Cetirizine HCl (ZyrTEC) 10 mg DAILY PO 12/31/19 00:00 12/31/19 08:23 Fluticasone Propionate (Flonase) 2 spray DAILY NS 12/31/19 00:00 12/31/19 08:24 ALLERGIES ALLERGIES: Coded Allergies: amlodipine (Verified Allergy, Intermediate, 07/09/19) palpitations, swelling in legs codeine (Verified Allergy, Intermediate, 09/22/16) lisinopril (Verified Allergy, Intermediate, 07/09/19) cough ROS Review of System 14 point ROS conducted with pertinent positives noted above in hPI PHYSICAL EXAM PHYSICAL EXAM General: Alert, Oriented X3, Cooperative, No acute distress HEENT: Atraumatic, Mucous membr. moist/pink Lungs: Fine bibasilar crackles Heart: Regular rate (SR), Normal S1, Normal S2, Other Abdomen: Soft, No tenderness Extremities: No cyanosis, No edema Skin: No breakdown, No significant lesion Neuro: Normal speech, Sensation intact Psych/Mental Status: Mental status NL, Mood NL MUSCULOSKELETAL: Osteoarthritic changes both hands VITALS/I&O VITALS/I&O: Vital Signs Date Time Temp Pulse Resp B/P (MAP) Pulse Ox O2 Delivery O2 Flow Rate FiO2 12/31/19 10:51 97.5 73 116/69 (85) 95 Nasal Cannula 2.0 97.5 12/31/19 07:00 18 I & O 12/30/19 12/30/19 12/31/19 15:00 23:00 07:00 Intake Total 300 ml 0 ml 200 ml Output Total 300 ml Balance 0 ml 0 ml 200 ml ECHOCARDIOGRAM ECHOCARDIOGRAM <Conclusion> The left ventricle is normal size. The left ventricular systolic function is normal. The ejection fraction is 50-55% There is no significant aortic valvular stenosis. Doppler and Color Flow revealed mild aortic regurgitation. Doppler and Color-flow revealed mild mitral regurgitation. Doppler and Color Flow revealed trace to mild tricuspid regurgitation The PA pressure was estimated at 33 mmHg. DATE: 07/09/19 1256 STRESS TEST STRESS TEST Conclusion 1. No EKG evidence of stressed induced ischemia. 2. Nuclear imaging shows no reversible ischemia or infarct. 3. Normal left ventricular systolic function with an ejection fraction of 67%. 4. Low risk Lexiscan nuclear stress test. DATE: 09/22/16 1452 ASSESSMENT/PLAN ASSESSMENT/PLAN 1. Dyspnea with acute on chronic diastolic CHF; improved with diuresis. Echo 06/2019 with preserved LV systolic function 2. Hypertension; controlled 3. Hyperlipidemia; statin 4. CAD; s/p PCI/stent in 2007. CP free 5. GERD, H/o duodenal ulcers and large hiatal hernia 6. Anxiety 7. Hyponatremia Recommendations Diuresis with monitoring of labs Continue secondary prevention measures. ASA, statin Outpatient echo arranged Follow up in our office with Dr. Bloom as previously scheduled Consider outpatient ischemic evaluation Supportive care TIARRA MARTELL MD 12/31/19 0008: CARDIAC CONSULT ASSESSMENT/PLAN ASSESSMENT/PLAN Patient seen and examined. Agree with TRACK SUPERINTENDENT's assessment and plan. Acute on chronic diastolic heart failure better compensated with diuresis Recent 2-D echo showed normal LV systolic function CAD status clinically stable Plan outpatient ischemic evaluation Thank you for your consultation JULIA ANDERSON APRN Dec 31, 2019 12:34 TIARRA MARTELL MD Dec 31, 2019 15:55
--- NOTE | 2019-12-31 12:36 | NUR ---
Student Co-sign: I have read the documentation by SN Jaimie [facility] and concur unless otherwise stated or documented. Merle Doran RN [facility]
[2019-12-31] MEDS ORDERED: FUROSEMIDE 40 MG/4 ML VIAL. IVP ONE (13:00)
[2019-12-31] MEDS ORDERED: ALBUTEROL SULFATE 2.5 MG/3 ML NEBU. INH PRN (13:45)
[2019-12-31] MEDS: MAGNESIUM OXIDE 400 MG TABLET PO SCH ×2 (13:46→20:37)
[2019-12-31] MEDS: VITAMIN B COMPLEX TABLET. PO SCH (13:46)
[2019-12-31] MEDS: FUROSEMIDE 20 MG TABLET PO SCH (13:46)
[2019-12-31] MEDS: ASPIRIN ENTERIC COATED 81 MG TABLET.DR. PO SCH (13:57)
[2019-12-31] MEDS: LOSARTAN POTASSIUM 50 MG TABLET. PO SCH (13:57)
[2019-12-31 15:00] VITALS: BP 116/63
[2019-12-31 17:15] LABS: CALCIUM 8.9 mg/dL (8.5-10.1); CREATININE 1.4 mg/dL (0.6-1.0); GFR 35.7; POTASSIUM 4.2 mmol/L (3.5-5.1)
--- NOTE | 2019-12-31 17:40 | RAD ---
CT study of the chest without contrast Clinical indications: Aortic aneurysm. Shortness of air. Chest x-ray dated December 30, 2019 demonstrated interstitial lung infiltrates. TECHNIQUE: Noncontrast helical CT scanning of the chest was performed. Without contrast, the sensitivity to detect organ pathology is decreased. PQRS compliance Statement One or more of the following individualized dose reduction techniques were utilized for this study: 1. Automated exposure control 2. Adjustment of the mA and/or kV according to patient size 3. Use of iterative reconstruction technique COMPARISON: CTA chest dated June 15, 2017. FINDINGS: Bilateral breast prostheses are seen. Calcified fibrous encapsulation of both breast implants is seen. There is extracapsular rupture of the lateral inferior aspect of the right breast implant. No enlarged thoracic lymphadenopathy is evident. Calcified mediastinal and bilateral hilar lymph nodes are seen due to old granulomatous disease. Calcified atheromatous disease of the coronary arteries is seen. The heart size is normal and no pericardial effusion is seen. The caliber of the ascending aorta is 4.9 cm. Aneurysmal dilatation is considered at 5 cm. A small hiatal hernia is evident. 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 This is a normal anatomical variant. No adrenal mass is seen. Bilateral renal cysts are seen. There is a cortical nodule involving the lateral mid aspect of the left kidney which demonstrates Hounsfield unit measurements of 28 and measures 2 cm in size. This most likely represents a hyperdense cyst. This demonstrated Hounsfield unit measurements of 1.[address] study more indicative of a cyst and has not increased in size. Chronic linear nodular scar is seen within the central aspect of the left upper lobe which is unchanged. Bilateral emphysema and chronic interstitial lung disease is seen secondary to pulmonary fibrosis. Calcified granulomas are seen on the right side. There is a noncalcified lung nodule within the lateral aspect of the right lower lobe seen on series 2 and image 37 which measures 6 mm. This is unchanged consistent with a benign finding. No new lung nodule or new consolidative lung infiltrate is seen. No pleural effusion or pneumothorax is evident. The proximal bronchial tree is patent. No lytic process is seen. IMPRESSION: Emphysema and bilateral pulmonary fibrosis. Stable 6 mm lung nodule within the right lower lobe consistent with a benign finding. No new lung mass or lung consolidation is seen. Calcified atheromatous disease of the coronary arteries. Normal heart size. Ectasia of the ascending aorta measuring up to 4.9 cm in greatest caliber. Aneurysm is considered with a measurement of 5 cm. This measured 4.7 cm previously. Small hiatal hernia. Extracapsular rupture of right breast implant. Electronically signed by: Catalino Ibrahim MD (12/31/2019 5:37 PM) [facility]
[2019-12-31 19:00] VITALS: BP 95/56
[2019-12-31] MEDS: ATORVASTATIN CALCIUM 20 MG TABLET PO SCH (20:37)
[2019-12-31 23:30] VITALS: BP 111/66
[2020-01-01 03:54] VITALS: BP 113/67
[2020-01-01 07:30] VITALS: BP 88/64
[2020-01-01] MEDS: ALPRAZolam 0.5 MG TABLET PO SCH ×2 (08:52→21:34)
[2020-01-01] MEDS: ASPIRIN ENTERIC COATED 81 MG TABLET.DR. PO SCH (08:52)
[2020-01-01] MEDS: CETIRIZINE HCL 10 MG TABLET. PO SCH (08:52)
[2020-01-01] MEDS: FUROSEMIDE 20 MG TABLET PO SCH (08:53)
[2020-01-01] MEDS: VITAMIN B COMPLEX TABLET. PO SCH (08:53)
[2020-01-01] MEDS: MAGNESIUM OXIDE 400 MG TABLET PO SCH ×2 (08:53→21:34)
[2020-01-01] MEDS: LOSARTAN POTASSIUM 50 MG TABLET. PO SCH (08:53)
[2020-01-01] MEDS: FAMOTIDINE 20 MG TABLET. PO SCH (08:53)
[2020-01-01] MEDS: FLUTICASONE 50MCG/NASAL SPRAY 16GM BOTTLE. NS SCH (08:54)
[2020-01-01] MEDS ORDERED: NON FORMULARY ITEM (Biotin 1 TAB) PO SCH (09:00)
--- NOTE | 2020-01-01 09:34 | PDOC ---
PROGRESS NOTES History of Present Illness History of Present Illness Images: Images Chest x-ray shows heart failure Assessment/Plan Assessment/Plan Acute on chronic systolic and diastolic heart failure acute on chronic diastolic CHF; improved with diuresis. Echo 06/2019 with preserved LV systolic function superimposed edema or interstitial infiltrate on background of mild interstitial fibrotic change and emphysema. Hyponatremia acute hypoxic resp failure Dilatation of the ascending aorta at 4.[address] Ectasia of the ascending aorta measuring up to 4.9 cm in greatest caliber. 12/31 Aneurysm is considered with a measurement of 5 cm. This measured 4.7 cm previously. GERD Plan Cardiac monitoring Serial enzymes Serial EKGs Echocardiogram Correct potassium with IV saline Consult cardiology Home meds DVT prophylaxis IV Lasix ON HOLD 01/01 Full code Prognosis guarded bmp today o2 support ct chest REVIEWED CONSULT CTS surgery soon, may be poor surgical candidate due to age bp control Outpatient echo arranged Follow up with Dr. Bloom as previously scheduled Vitals Vitals Vital Signs Date Time Temp Pulse Resp B/P (MAP) Pulse Ox O2 Delivery O2 Flow Rate FiO2 01/01/20 08:53 78 113/67 01/01/20 07:30 98.5 18 90 Nasal Cannula 2.0 98.5 Physical Exam Physical Exam GEN: No apparent distress. Alert and oriented HEENT: Normal cephalic, atraumatic, external auditory canals are patent EYES: Extraocular muscles are intact, pupil are equally round and reactive to light and accommodation MUSCULOSKELETAL: Well developed , well nourished, good range of motion ENDOCRINE: No thyromegaly was palpated LYMPHATICS: No cervical chain or axillary nodes were noted HEMATOPOIETIC: No bruising NECK: Supple, no JVD, no thyromegaly was noted LUNGS: Bibasilar crackles HEART: RRR, S!, S2 present. Peripheral pulses intact, no obvious murmurs noted ABDOMEN: Soft, nontender. Positive bowel sounds, no organomegaly, normal bowel sounds EXTREMITIES: Without clubbing, cyanosis, or edema. Pedal pulses intact. Negative Homans sign NEUROLOGIC: Normal speech and tone. A&O x 3, moves all extremities, no obvious focal deficits PSYCHIATRIC: Normal affect, normal mood. Stable SKIN: No ulcerations or rashes, good skin turgor, no jaundice General: Alert, Oriented X3, Cooperative, No acute distress Heart: Regular rate Lungs: Clear, Other Abdomen: Normal bowel sounds, Soft Extremities: No clubbing, No cyanosis Labs LABS PQRS compliance Statement One or more of the following individualized dose reduction techniques were utilized for this study: 1. Automated exposure control 2. Adjustment of the mA and/or kV according to patient size 3. Use of iterative reconstruction technique COMPARISON: CTA chest dated June 15, 2017. FINDINGS: Bilateral breast prostheses are seen. Calcified fibrous encapsulation of both breast implants is seen. There is extracapsular rupture of the lateral inferior aspect of the right breast implant. No enlarged thoracic lymphadenopathy is evident. Calcified mediastinal and bilateral hilar lymph nodes are seen due to old granulomatous disease. Calcified atheromatous disease of the coronary arteries is seen. The heart size is normal and no pericardial effusion is seen. The caliber of the ascending aorta is 4.9 cm. Aneurysmal dilatation is considered at 5 cm. A small hiatal hernia is evident. 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 This is a normal anatomical variant. No adrenal mass is seen. Bilateral renal cysts are seen. There is a cortical nodule involving the lateral mid aspect of the left kidney which demonstrates Hounsfield unit measurements of 28 and measures 2 cm in size. This most likely represents a hyperdense cyst. This demonstrated Hounsfield unit measurements of 1.[address] study more indicative of a cyst and has not increased in size. Chronic linear nodular scar is seen within the central aspect of the left upper lobe which is unchanged. Bilateral emphysema and chronic interstitial lung disease is seen secondary to pulmonary fibrosis. Calcified granulomas are seen on the right side. There is a noncalcified lung nodule within the lateral aspect of the right lower lobe seen on series 2 and image 37 which measures 6 mm. This is unchanged consistent with a benign finding. No new lung nodule or new consolidative lung infiltrate is seen. No pleural effusion or pneumothorax is evident. The proximal bronchial tree is patent. No lytic process is seen. IMPRESSION: Emphysema and bilateral pulmonary fibrosis. Stable 6 mm lung nodule within the right lower lobe consistent with a benign finding. No new lung mass or lung consolidation is seen. Calcified atheromatous disease of the coronary arteries. Normal heart size. Ectasia of the ascending aorta measuring up to 4.9 cm in greatest caliber. Aneurysm is considered with a measurement of 5 cm. This measured 4.7 cm previously. Small hiatal hernia. Extracapsular rupture of right breast implant. Electronically signed by: Catalino Ibrahim MD (12/31/2019 5:37 PM) [facility] Laboratory Tests Test 12/31/19 16:40 Sodium Level 134 mmol/L (136-145) Potassium Level 4.2 mmol/L (3.5-5.1) Chloride Level 96 mmol/L (98-107) Carbon Dioxide Level 28 mmol/L (21-32) Anion Gap 10 (6-14) Blood Urea Nitrogen 25 mg/dL (7-20) Creatinine 1.4 mg/dL (0.6-1.0) Estimated GFR (Cockcroft-Gault) 35.7 Glucose Level 99 mg/dL (70-99) Calcium Level 8.9 mg/dL (8.5-10.1) Assessment and Plan Assessmemt and Plan Problems Medical Problems: (1) Congestive heart failure Status: Acute (2) Hyponatremia Status: Acute (3) SOB (shortness of breath) Status: Acute (4) Weakness Status: Acute Comment Review of Relevant I have reviewed the following items zora (where applicable) has been applied. Labs Laboratory Tests Test 12/30/19 11:05 12/30/19 11:38 12/31/19 16:40 White Blood Count 6.0 x10^3/uL (4.0-11.0) Red Blood Count 3.67 x10^6/uL (3.50-5.40) Hemoglobin 11.4 g/dL (12.0-15.5) Hematocrit 32.6 % (36.0-47.0) Mean Corpuscular Volume 89 fL (79-100) Mean Corpuscular Hemoglobin 31 pg (25-35) Mean Corpuscular Hemoglobin Concent 35 g/dL (31-37) Red Cell Distribution Width 13.4 % (11.5-14.5) Platelet Count 334 x10^3/uL (140-400) Neutrophils (%) (Auto) 75 % (31-73) Lymphocytes (%) (Auto) 6 % (24-48) Monocytes (%) (Auto) 10 % (0-9) Eosinophils (%) (Auto) 8 % (0-3) Basophils (%) (Auto) 1 % (0-3) Neutrophils # (Auto) 4.5 x10^3/uL (1.8-7.7) Lymphocytes # (Auto) 0.4 x10^3/uL (1.0-4.8) Monocytes # (Auto) 0.6 x10^3/uL (0.0-1.1) Eosinophils # (Auto) 0.4 x10^3/uL (0.0-0.7) Basophils # (Auto) 0.0 x10^3/uL (0.0-0.2) Sodium Level 126 mmol/L (136-145) 134 mmol/L (136-145) Potassium Level 4.4 mmol/L (3.5-5.1) 4.2 mmol/L (3.5-5.1) Chloride Level 93 mmol/L (98-107) 96 mmol/L (98-107) Carbon Dioxide Level 25 mmol/L (21-32) 28 mmol/L (21-32) Anion Gap 8 (6-14) 10 (6-14) Blood Urea Nitrogen 12 mg/dL (7-20) 25 mg/dL (7-20) Creatinine 0.9 mg/dL (0.6-1.0) 1.4 mg/dL (0.6-1.0) Estimated GFR (Cockcroft-Gault) 59.5 35.7 Glucose Level 114 mg/dL (70-99) 99 mg/dL (70-99) Calcium Level 8.2 mg/dL (8.5-10.1) 8.9 mg/dL (8.5-10.1) Troponin I Quantitative < 0.017 ng/mL (0.000-0.055) CA-Slv-I-Type Natriuretic Peptide 1165 pg/mL (0-449) Influenza Type A Antigen Negative (NEGATIVE) Influenza Type B Antigen Negative (NEGATIVE) Laboratory Tests Test 12/31/19 16:40 Sodium Level 134 mmol/L (136-145) Potassium Level 4.2 mmol/L (3.5-5.1) Chloride Level 96 mmol/L (98-107) Carbon Dioxide Level 28 mmol/L (21-32) Anion Gap 10 (6-14) Blood Urea Nitrogen 25 mg/dL (7-20) Creatinine 1.4 mg/dL (0.6-1.0) Estimated GFR (Cockcroft-Gault) 35.7 Glucose Level 99 mg/dL (70-99) Calcium Level 8.9 mg/dL (8.5-10.1) Medications Current Medications Albuterol/ Ipratropium (Duoneb) 3 ml 1X ONCE NEB Last administered on 12/30/19at 11:18; Start 12/30/19 at 11:15; Stop 12/30/19 at 11:16; Status DC Methylprednisolone Sodium Succinate (SOLU-Medrol 125MG VIAL) 125 mg 1X ONCE IV Last administered on 12/30/19at 11:41; Start 12/30/19 at 11:15; Stop 12/30/19 at 11:16; Status DC Sodium Chloride 1,000 ml @ 1,000 mls/hr 1X ONCE IV Last administered on 12/30/19at 11:50; Start 12/30/19 at 12:00; Stop 12/30/19 at 12:59; Status DC Furosemide (Lasix) 20 mg 1X ONCE IVP Last administered on 12/30/19at 12:24; Start 12/30/19 at 12:15; Stop 12/30/19 at 12:16; Status DC Famotidine (Pepcid) 20 mg DAILY PO Last administered on 01/01/20at 08:53; Start 12/31/19 at 09:00 Alprazolam (Xanax) 0.25 mg PRN DAILY PRN PO ANXIETY / AGITATION; Start 12/30/19 at 23:15 Alprazolam (Xanax) 0.5 mg BID PO ; Start 12/31/19 at 09:00; Stop 12/30/19 at 23:18; Status DC Albuterol Sulfate (Ventolin Neb Soln) 2.5 mg PRN Q6HRS PRN NEB SHORTNESS OF BR EATH; Start 12/30/19 at 23:15; Stop 12/31/19 at 13:37; Status DC Alprazolam (Xanax) 0.5 mg BID PO Last administered on 01/01/20at 08:52; Start 12/30/19 at 23:30 Non-Formulary Medication (Fexofenadine Hcl (Clarisa Allergy)) 180 mg DAILY PO ; Start 12/31/19 at 09:00; Stop 12/30/19 at 23:47; Status DC Non-Formulary Medication (Fluticasone Propionate (Flonase Allergy Relief)) 2 sprays DAILY NS ; Start 12/31/19 at 09:00; Stop 12/30/19 at 23:47; Status DC Cetirizine HCl (ZyrTEC) 10 mg DAILY PO Last administered on 01/01/20 08:52; Start 12/31/19 at 00:00 Fluticasone Propionate (Flonase) 2 spray DAILY NS Last administered on 01/01/20 08:54; Start 12/31/19 at 00:00 Furosemide (Lasix) 40 mg 1X ONCE IVP Last administered on 12/31/19at 13:15; Start 12/31/19 at 13:00; Stop 12/31/19 at 13:01; Status DC Aspirin (Ecotrin) 81 mg DAILYWBKFT PO Last administered on 01/01/20 08:52; Start 12/31/19 at 14:00 Atorvastatin Calcium (Lipitor) 20 mg QHS PO Last administered on 12/31/19 20:37; Start 12/31/19 at 21:00 Furosemide (Lasix) 20 mg DAILY PO Last administered on 01/01/20 08:53; Start 12/31/19 at 14:00 Vitamin B Complex (Chad B) 1 tab DAILY PO Last administered on 01/01/20 08:53; Start 12/31/19 at 14:00 Non-Formulary Medication (Biotin ) 1 tab DAILY PO ; Start 01/01/20 at 09:00; Status UNV Losartan Potassium (Cozaar) 100 mg DAILY PO Last administered on 01/01/20 08:53; Start 12/31/19 at 14:00 Magnesium Oxide (Magnesium Oxide) 400 mg BID PO Last administered on 01/01/20at 08:53; Start 12/31/19 at 14:00 Albuterol Sulfate (Ventolin Neb Soln) 2.5 mg PRN Q4HRS PRN INH SHORTNESS OF BREATH; Start 12/31/19 at 13:45 Active Scripts Active Proair Hfa Inhaler (Albuterol Sulfate) 8.5 Gm Hfa.aer.ad 2 Puff INH Q4HRS PRN Aspirin Ec (Aspirin) 81 Mg Tablet. 81 Mg PO DAILYWBKFT Reported Alprazolam 0.25 Mg Tablet 0.25 Mg PO PRN DAILY PRN Clarisa Allergy (Fexofenadine Hcl) 180 Mg Tablet 180 Mg PO DAILY Flonase Allergy Relief (Fluticasone Propionate) 9.9 Ml [place].susp 2 Sprays NS DAILY Biotin 1 Mg Capsule 1 Tab PO DAILY Ranitidine Hcl 150 Mg Tablet 150 Mg PO BID Magnesium (Magnesium Oxide) 400 Mg Capsule 1 Cap PO BID Furosemide 20 Mg Tablet 1 Tab PO DAILY Co Q-10 100 Mg Softgel (Ubidecarenone/Vit E Acetate) 1 Each Capsule 1 Each PO B Complex (Vitamin B Complex) 1 Each Tablet 1 Each PO Atorvastatin Calcium 20 Mg Tablet 1 Tab PO QHS Alprazolam 0.5 Mg Tablet 1 Tab PO BID Losartan Potassium 100 Mg Tablet 100 Mg PO DAILY Vitals/I & O Vital Sign - Last 24 Hours 12/31/19 12/31/19 12/31/19 12/31/19 10:29 10:30 10:51 13:57 Temp 97.5 97.5 Pulse 73 73 B/P (MAP) 116/69 (85) 116/69 Pulse Ox 95 95 O2 Delivery Nasal Cannula Nasal Cannula Nasal Cannula O2 Flow Rate 2.0 2.0 2.0 12/31/19 12/31/19 12/31/19 12/31/19 15:00 19:00 20:00 23:30 Temp 97.3 98.2 97.4 97.3 98.2 97.4 Pulse 99 90 78 Resp 20 18 B/P (MAP) 116/63 (80) 95/56 (69) 111/66 (81) Pulse Ox 95 O2 Delivery Nasal Cannula Nasal Cannula Nasal Cannula Nasal Cannula O2 Flow Rate 2.0 2.0 2.0 2.0 01/01/20 01/01/20 01/01/20 03:54 07:30 08:53 Temp 97.5 98.5 97.5 98.5 Pulse 78 99 78 Resp 18 18 B/P (MAP) 113/67 (82) 88/64 (72) 113/67 Pulse Ox 90 O2 Delivery Nasal Cannula Nasal Cannula O2 Flow Rate 2.0 2.0 Intake and Output 12/31/19 12/31/19 01/01/20 15:00 23:00 07:00 Intake Total 720 ml 360 ml 100 ml Balance 720 ml 360 ml 100 ml RAMÓN ROTH MD Jan 01, 2020 09:34
[2020-01-01 11:00] VITALS: BP 117/64
--- NOTE | 2020-01-01 11:20 | PDOC ---
JULIA ANDERSON PRIMARY TEACHER 01/01/20 1120: CARDIO Progress Notes Date and Time Date of Service 01/01/20 Time of Evaluation 1110 Subjective Subjective: No Chest Pain, No Palpitations, Other (still very SOA today) Vitals Vitals Vital Signs Date Time Temp Pulse Resp B/P (MAP) Pulse Ox O2 Delivery O2 Flow Rate FiO2 01/01/20 08:53 78 113/67 01/01/20 08:00 Nasal Cannula 2.0 01/01/20 07:30 98.5 18 90 98.5 Weight Weight [ ] Input and Output Intake and Output Intake and Output 01/01/20 07:00 Intake Total 1180 ml Balance 1180 ml Intake Oral 1180 ml # Voids 2 Laboratory Labs Laboratory Tests Test 12/31/19 16:40 Sodium Level 134 mmol/L (136-145) Potassium Level 4.2 mmol/L (3.5-5.1) Chloride Level 96 mmol/L (98-107) Carbon Dioxide Level 28 mmol/L (21-32) Anion Gap 10 (6-14) Blood Urea Nitrogen 25 mg/dL (7-20) Creatinine 1.4 mg/dL (0.6-1.0) Estimated GFR (Cockcroft-Gault) 35.7 Glucose Level 99 mg/dL (70-99) Calcium Level 8.9 mg/dL (8.5-10.1) Physical Exam HEENT: Neck Supple W Full Motion Chest: Symmetric LUNGS: Clear to Auscultation, Other (diminished throughout ) Heart: S1S2, RRR Abdomen: Soft N/T Extremities: No Edema Neurology: alert, oriented, follow commands Assessment Assessment 1. Dyspnea; multifactorial with AE COPD, a/c CHF, and possible ILD 2. Acute on chronic diastolic CHF; improved with diuresis. Echo 06/2019 with preserved LV systolic function 2. Hypertension; controlled 3. Hyperlipidemia; statin 4. CAD; s/p PCI/stent in 2007. CP free 5. GERD, H/o duodenal ulcers and large hiatal hernia 6. Anxiety 7. Hyponatremia 8. GUERRERO 9. Ascending aortic aneurysm; 4.[address] Outpatient CTS eval Recommendations Hold diuresis with GUERRERO Continue secondary prevention measures. ASA, statin Outpatient echo arranged Follow up in our office with Dr. Bloom as previously scheduled Supportive care TIARRA MARTELL MD 01/02/20 0933: CARDIO Progress Notes Assessment Assessment Patient seen and examined 01/01/20. Agree with AWNING FRAME MAKER's assessment and plan. Acute on chronic diastolic heart failure better compensated CAD status clinically stable Continue current treatment for acute COPD exacerbation JULIA ANDERSON APRN Jan 01, 2020 11:20 TIARRA MARTELL MD Jan 02, 2020 09:33
[2020-01-01 15:00] VITALS: BP 102/60
--- NOTE | 2020-01-01 15:30 | NUR ---
SS following up with discharge planning. PT/OT recommended home independent at discharge. SS will continue to follow for discharge planning.
--- NOTE | 2020-01-01 17:52 | PDOC ---
PULMONARY PROGRESS NOTES Vitals Vital Signs Date Time Temp Pulse Resp B/P (MAP) Pulse Ox O2 Delivery O2 Flow Rate FiO2 01/01/20 15:00 98.3 92 18 102/60 (74) 95 Nasal Cannula 2.0 98.3 Lungs: Clear, Other Cardiovascular: S1, S2 Labs Laboratory Tests Test 12/31/19 16:40 Sodium Level 134 mmol/L (136-145) Potassium Level 4.2 mmol/L (3.5-5.1) Chloride Level 96 mmol/L (98-107) Carbon Dioxide Level 28 mmol/L (21-32) Anion Gap 10 (6-14) Blood Urea Nitrogen 25 mg/dL (7-20) Creatinine 1.4 mg/dL (0.6-1.0) Estimated GFR (Cockcroft-Gault) 35.7 Glucose Level 99 mg/dL (70-99) Calcium Level 8.9 mg/dL (8.5-10.1) Medications Active Scripts Medications Dose Route/Sig Max Daily Dose Days Date Category Alprazolam 0.25 Mg Tablet 0.25 Mg PO PRN DAILY PRN 12/30/19 Reported Clarisa Allergy (Fexofenadine Hcl) 180 Mg Tablet 180 Mg PO DAILY 12/30/19 Reported Flonase Allergy Relief (Fluticasone Propionate) 9.9 Ml [place].susp 2 Sprays NS DAILY 12/30/19 Reported Biotin 1 Mg Capsule 1 Tab PO DAILY 12/30/19 Reported Ranitidine Hcl 150 Mg Tablet 150 Mg PO BID 07/09/19 Reported Magnesium (Magnesium Oxide) 400 Mg Capsule 1 Cap PO BID 06/14/17 Reported Furosemide 20 Mg Tablet 1 Tab PO DAILY 06/14/17 Reported Proair Hfa Inhaler (Albuterol Sulfate) 8.5 Gm Hfa.aer.ad 2 Puff INH Q4HRS PRN 09/25/16 Rx Aspirin Ec (Aspirin) 81 Mg Tablet.dr 81 Mg PO DAILYWBKFT 09/22/16 Rx Co Q-10 100 Mg Softgel (Ubidecarenone/Vit E Acetate) 1 Each Capsule 1 Each PO 06/11/16 Reported B Complex (Vitamin B Complex) 1 Each Tablet 1 Each PO 06/11/16 Reported Atorvastatin Calcium 20 Mg Tablet 1 Tab PO QHS 06/11/16 Reported Alprazolam 0.5 Mg Tablet 1 Tab PO BID 06/11/16 Reported Losartan Potassium 100 Mg Tablet 100 Mg PO DAILY 06/11/16 Reported Impression . note dictated AECDOPD SEE ORDERS THANKS CLAUDINE BOLIVAR MD Jan 01, 2020 17:52
[2020-01-01] MEDS ORDERED: ALBUTEROL SULFATE 2.5 MG/3 ML NEBU. NEB PRN (18:00)
[2020-01-01] MEDS ORDERED: methylPREDNISolone SOD SUCC PF 125 MG/2 ML VIAL. IV SCH (18:00)
[2020-01-01 19:00] VITALS: BP 125/69
[2020-01-01] MEDS: ALBUTEROL SULFATE 2.5 MG/3 ML NEBU. NEB SCH (19:29)
[2020-01-01] MEDS: ATORVASTATIN CALCIUM 20 MG TABLET PO SCH (21:34)
[2020-01-01 23:15] VITALS: BP 111/58
--- NOTE | 2020-01-01 23:47 | CONS ---
DATE OF CONSULTATION: 01/01/2020 ATTENDING PHYSICIAN: Ezequiel Badillo DO REASON FOR CONSULTATION: The patient seen in pulmonary consultation at the request of Dr. Le for increasing shortness of air. HISTORY OF PRESENT ILLNESS: The patient is an 84-year-old with a history of COPD, emphysema, no oxygen at home, presented with increasing shortness of breath, cough productive of discolored sputum and some wheezing. She had seen her primary care doctor 4 days prior to admission and had failed some outpatient treatment. She was admitted. I was asked to see her in consultation. Her chest x-ray was reviewed. There is evidence of emphysema and some mild fibrosis. There was also a CT chest that was performed in comparison to the film of 2017. There is severe emphysema, bilateral pulmonary fibrosis, mainly in the bases and a 6 mm nodule in the right lower lobe, which had been stable. The patient quit vaping several years ago, but prior to that smoked tobacco. She does not wear oxygen at home. She utilizes albuterol. PAST MEDICAL HISTORY: Coronary artery disease, hypertension, hyperlipidemia, COPD of the emphysematous type, gastroesophageal reflux, previous uterine cancer, anxiety, osteoarthritis, basal cell carcinoma. PAST SURGICAL HISTORY: Status post nasal reconstructive surgery, previous coronary artery stent placement, hysterectomy. Echocardiogram in the past revealed EF of 50-55%, pulmonary artery pressure was 33. ALLERGIES: AMLODIPINE, CODEINE AND LISINOPRIL. REVIEW OF SYSTEMS: As indicated above, otherwise, a 10-point system was reviewed and negative. FAMILY HISTORY: Noncontributory in this particular situation. CURRENT MEDICATION: List was reviewed. PHYSICAL EXAMINATION: VITAL SIGNS: Stable. O2 saturation was greater than 92%, currently on 2 liters. HEENT: Eyes, the sclerae were nonicteric. NECK: Jugular venous distention was not elevated. No lymphadenopathy. CHEST: Full expansion. LUNGS: Crackles in the bases. Expiratory wheeze. CARDIOVASCULAR: Regular rate and rhythm with S1, S2, no S3. ABDOMEN: Soft, nontender, nondistended. EXTREMITIES: No clubbing, cyanosis or edema. LABORATORY DATA: Reviewed. White count was normal. Hemoglobin and hematocrit were noted. Serology for influenza was negative. BNP was elevated. IMPRESSION: 1. Acute exacerbation of chronic obstructive pulmonary disease. 2. Acute hypoxemic respiratory failure secondary to above. 3. Pulmonary fibrosis. 4. Acute on chronic diastolic heart failure. 5. Secondary pulmonary hypertension. 6. Coronary artery disease with previous stent placement in 2007. 7. Gastroesophageal reflux. 8. Anxiety. PLAN: 1. Recommend to continue oxygen supplementation. 2. Steroids. 3. Nebulized treatments. 4. Gentle diuresis. 5. A 6-minute walk prior to discharge. 6. Follow up in the outpatient department with pulmonary function testing. I do appreciate the privilege in sharing in the patient's care. CLAUDINE BOLIVAR MD DR: MCKAYLA/rosalva JOB#: [id number] / [id number]
[2020-01-02] MEDS ORDERED: MAG HYDROX/ALUMINUM HYD/SIMETH 30 ML ORAL.SUSP PO PRN (01:30)
[2020-01-02 03:15] VITALS: BP 114/62
[2020-01-02 07:15] VITALS: BP 131/72
[2020-01-02] MEDS: ALBUTEROL SULFATE 2.5 MG/3 ML NEBU. NEB SCH ×3 (07:34→15:04)
[2020-01-02] MEDS: ASPIRIN ENTERIC COATED 81 MG TABLET.DR. PO SCH (08:42)
[2020-01-02] MEDS: ALPRAZolam 0.5 MG TABLET PO SCH ×2 (08:42→21:05)
[2020-01-02] MEDS: MAGNESIUM OXIDE 400 MG TABLET PO SCH ×2 (08:42→21:05)
[2020-01-02] MEDS: CETIRIZINE HCL 10 MG TABLET. PO SCH (08:43)
[2020-01-02] MEDS: FAMOTIDINE 20 MG TABLET. PO SCH (08:43)
[2020-01-02] MEDS: LOSARTAN POTASSIUM 50 MG TABLET. PO SCH (08:43)
[2020-01-02] MEDS: VITAMIN B COMPLEX TABLET. PO SCH (08:43)
--- NOTE | 2020-01-02 08:43 | PDOC ---
PULMONARY PROGRESS NOTES Subjective PT FEELS SOMEWHAT SOA Vitals Vital Signs Date Time Temp Pulse Resp B/P (MAP) Pulse Ox O2 Delivery O2 Flow Rate FiO2 01/02/20 07:35 90 Nasal Cannula 2.0 01/02/20 07:15 98.2 80 20 131/72 (91) 98.2 ROS: No Nausea, No Chest Pain, No Abdominal Pain, No Increase Cough Lungs: Wheezing Cardiovascular: S1, S2 Abdomen: Soft Neuro Exam: Alert Extremities: No Edema Skin: Warm Labs Laboratory Tests Test 12/31/19 16:40 Sodium Level 134 mmol/L (136-145) Potassium Level 4.2 mmol/L (3.5-5.1) Chloride Level 96 mmol/L (98-107) Carbon Dioxide Level 28 mmol/L (21-32) Anion Gap 10 (6-14) Blood Urea Nitrogen 25 mg/dL (-20) Creatinine 1.4 mg/dL (0.6-1.0) Estimated GFR (Cockcroft-Gault) 35.7 Glucose Level 99 mg/dL (70-99) Calcium Level 8.9 mg/dL (8.5-10.1) Medications Active Scripts Medications Dose Route/Sig Max Daily Dose Days Date Category Alprazolam 0.25 Mg Tablet 0.25 Mg PO PRN DAILY PRN 12/30/19 Reported Clarisa Allergy (Fexofenadine Hcl) 180 Mg Tablet 180 Mg PO DAILY 12/30/19 Reported Flonase Allergy Relief (Fluticasone Propionate) 9.9 Ml [place].susp 2 Sprays NS DAILY 12/30/19 Reported Biotin 1 Mg Capsule 1 Tab PO DAILY 12/30/19 Reported Ranitidine Hcl 150 Mg Tablet 150 Mg PO BID 07/09/19 Reported Magnesium (Magnesium Oxide) 400 Mg Capsule 1 Cap PO BID 06/14/17 Reported Furosemide 20 Mg Tablet 1 Tab PO DAILY 06/14/17 Reported Proair Hfa Inhaler (Albuterol Sulfate) 8.5 Gm Hfa.aer.ad 2 Puff INH Q4HRS PRN 09/25/16 Rx Aspirin Ec (Aspirin) 81 Mg Tablet.dr 81 Mg PO DAILYWBKFT 09/22/16 Rx Co Q-10 100 Mg Softgel (Ubidecarenone/Vit E Acetate) 1 Each Capsule 1 Each PO 06/11/16 Reported B Complex (Vitamin B Complex) 1 Each Tablet 1 Each PO 06/11/16 Reported Atorvastatin Calcium 20 Mg Tablet 1 Tab PO QHS 06/11/16 Reported Alprazolam 0.5 Mg Tablet 1 Tab PO BID 06/11/16 Reported Losartan Potassium 100 Mg Tablet 100 Mg PO DAILY 06/11/16 Reported Impression . IMPRESSION: 1. Acute exacerbation of chronic obstructive pulmonary disease. 2. Acute hypoxemic respiratory failure secondary to above. 3. Pulmonary fibrosis. 4. Acute on chronic diastolic heart failure. 5. Secondary pulmonary hypertension. 6. Coronary artery disease with previous stent placement in 2007. 7. Gastroesophageal reflux. 8. Anxiety. Plan . CONTINUE THE SAME WILL EVALUATE IN AM AND POSSIBLE DC D/W DAUGHTER WHOM LIVES WITH PT WILL CHECK 6 MW STEROIDS UPON DC NEB MACHINE AND HANDICAP PARKING PERMIT 01/01 1. Recommend to continue oxygen supplementation. 2. Steroids. 3. Nebulized treatments. 4. Gentle diuresis. 5. A 6-minute walk prior to discharge. 6. Follow up in the outpatient department with pulmonary function testing. CLAUDINE BOLIVAR MD Jan 02, 2020 08:43
[2020-01-02] MEDS: methylPREDNISolone SOD SUCC PF 125 MG/2 ML VIAL. IV SCH ×2 (08:44→21:05)
[2020-01-02] MEDS: FLUTICASONE 50MCG/NASAL SPRAY 16GM BOTTLE. NS SCH (08:44)
[2020-01-02 11:02] VITALS: BP 116/64
--- NOTE | 2020-01-02 11:03 | PDOC ---
PROGRESS NOTES History of Present Illness History of Present Illness Images: Images Chest x-ray shows heart failure Assessment/Plan Assessment/Plan Acute on chronic systolic and diastolic heart failure acute on chronic diastolic CHF; improved with diuresis. Echo 06/2019 with preserved LV systolic function superimposed edema or interstitial infiltrate on background of mild interstitial fibrotic change and emphysema. Hyponatremia acute hypoxic resp failure acute exac copd Dilatation of the ascending aorta at 4.[address] Ectasia of the ascending aorta measuring up to 4.9 cm in greatest caliber. 12/31 , an increase of .5 cm in 3 yrs Aneurysm is considered with a measurement of 5 cm. This measured 4.7 cm previously. Acute on chronic diastolic heart failure better compensated CAD status clinically stable GERD Plan Cardiac monitoring Serial enzymes Serial EKGs Echocardiogram Correct potassium with IV saline Consult cardiology Home meds DVT prophylaxis IV Lasix ON HOLD 01/01 iv steroid taper, continue Full code Prognosis guarded bmp today o2 support ct chest REVIEWED CONSULT CTS surgery soon, /// may be poor surgical candidate due to age / COPD bp control Outpatient echo arranged Follow up with Dr. Bloom as previously scheduled d/w family in room Vitals Vitals Vital Signs Date Time Temp Pulse Resp B/P (MAP) Pulse Ox O2 Delivery O2 Flow Rate FiO2 01/02/20 08:43 80 131/72 01/02/20 07:35 90 Nasal Cannula 2.0 01/02/20 07:15 98.2 20 98.2 Physical Exam Physical Exam GEN: No apparent distress. Alert and oriented HEENT: Normal cephalic, atraumatic, external auditory canals are patent EYES: Extraocular muscles are intact, pupil are equally round and reactive to light and accommodation MUSCULOSKELETAL: Well developed , well nourished, good range of motion ENDOCRINE: No thyromegaly was palpated LYMPHATICS: No cervical chain or axillary nodes were noted HEMATOPOIETIC: No bruising NECK: Supple, no JVD, no thyromegaly was noted LUNGS: Bibasilar crackles HEART: RRR, S!, S2 present. Peripheral pulses intact, no obvious murmurs noted ABDOMEN: Soft, nontender. Positive bowel sounds, no organomegaly, normal bowel sounds EXTREMITIES: Without clubbing, cyanosis, or edema. Pedal pulses intact. Negative Homans sign NEUROLOGIC: Normal speech and tone. A&O x 3, moves all extremities, no obvious focal deficits PSYCHIATRIC: Normal affect, normal mood. Stable SKIN: No ulcerations or rashes, good skin turgor, no jaundice General: Alert, Oriented X3, Cooperative, No acute distress Heart: Regular rate Lungs: Clear, Other Abdomen: Normal bowel sounds, Soft Extremities: No clubbing, No cyanosis Assessment and Plan Assessmemt and Plan Problems Medical Problems: (1) Congestive heart failure Status: Acute (2) Hyponatremia Status: Acute (3) SOB (shortness of breath) Status: Acute (4) Weakness Status: Acute Comment Review of Relevant I have reviewed the following items zora (where applicable) has been applied. Labs Laboratory Tests Test 12/31/19 16:40 Sodium Level 134 mmol/L (136-145) Potassium Level 4.2 mmol/L (3.5-5.1) Chloride Level 96 mmol/L (98-107) Carbon Dioxide Level 28 mmol/L (21-32) Anion Gap 10 (6-14) Blood Urea Nitrogen 25 mg/dL (7-20) Creatinine 1.4 mg/dL (0.6-1.0) Estimated GFR (Cockcroft-Gault) 35.7 Glucose Level 99 mg/dL (70-99) Calcium Level 8.9 mg/dL (8.5-10.1) Medications Current Medications Albuterol/ Ipratropium (Duoneb) 3 ml 1X ONCE NEB Last administered on 12/30/19at 11:18; Start 12/30/19 at 11:15; Stop 12/30/19 at 11:16; Status DC Methylprednisolone Sodium Succinate (SOLU-Medrol 125MG VIAL) 125 mg 1X ONCE IV Last administered on 12/30/19at 11:41; Start 12/30/19 at 11:15; Stop 12/30/19 at 11:16; Status DC Sodium Chloride 1,000 ml @ 1,000 mls/hr 1X ONCE IV Last administered on 12/30/19at 11:50; Start 12/30/19 at 12:00; Stop 12/30/19 at 12:59; Status DC Furosemide (Lasix) 20 mg 1X ONCE IVP Last administered on 12/30/19at 12:24; Start 12/30/19 at 12:15; Stop 12/30/19 at 12:16; Status DC Famotidine (Pepcid) 20 mg DAILY PO Last administered on 01/02/20at 08:43; Start 12/31/19 at 09:00 Alprazolam (Xanax) 0.25 mg PRN DAILY PRN PO ANXIETY / AGITATION; Start 12/30/19 at 23:15 Alprazolam (Xanax) 0.5 mg BID PO ; Start 12/31/19 at 09:00; Stop 12/30/19 at 23:18; Status DC Albuterol Sulfate (Ventolin Neb Soln) 2.5 mg PRN Q6HRS PRN NEB SHORTNESS OF BREATH; Start 12/30/19 at 23:15; Stop 12/31/19 at 13:37; Status DC Alprazolam (Xanax) 0.5 mg BID PO Last administered on 01/02/20at 08:42; Start 12/30/19 at 23:30 Non-Formulary Medication (Fexofenadine Hcl (Clarisa Allergy)) 180 mg DAILY PO ; Start 12/31/19 at 09:00; Stop 12/30/19 at 23:47; Status DC Non-Formulary Medication (Fluticasone Propionate (Flonase Allergy Relief)) 2 sprays DAILY NS ; Start 12/31/19 at 09:00; Stop 12/30/19 at 23:47; Status DC Cetirizine HCl (ZyrTEC) 10 mg DAILY PO Last administered on 01/02/20 08:43; Start 12/31/19 at 00:00 Fluticasone Propionate (Flonase) 2 spray DAILY NS Last administered on 01/02/20 08:44; Start 12/31/19 at 00:00 Furosemide (Lasix) 40 mg 1X ONCE IVP Last administered on 12/31/19at 13:15; Start 12/31/19 at 13:00; Stop 12/31/19 at 13:01; Status DC Aspirin (Ecotrin) 81 mg DAILYWBKFT PO Last administered on 01/02/20 08:42; Start 12/31/19 at 14:00 Atorvastatin Calcium (Lipitor) 20 mg QHS PO Last administered on 01/01/20at 21:34; Start 12/31/19 at 21:00 Furosemide (Lasix) 20 mg DAILY PO Last administered on 01/01/20at 08:53; Start 12/31/19 at 14:00; Stop 01/01/20 at 21:33; Status DC Vitamin B Complex (Chad B) 1 tab DAILY PO Last administered on 01/02/20at 08:43; Start 12/31/19 at 14:00 Non-Formulary Medication (Biotin ) 1 tab DAILY PO ; Start 01/01/20 at 09:00; Status UNV Losartan Potassium (Cozaar) 100 mg DAILY PO Last administered on 01/02/20at 08:43; Start 12/31/19 at 14:00 Magnesium Oxide (Magnesium Oxide) 400 mg BID PO Last administered on 01/02/20at 08:42; Start 12/31/19 at 14:00 Albuterol Sulfate (Ventolin Neb Soln) 2.5 mg PRN Q4HRS PRN INH SHORTNESS OF BREATH; Start 12/31/19 at 13:45 Albuterol Sulfate (Ventolin Neb Soln) 2.5 mg RTQID NEB Last administered on 01/02/20at 07:34; Start 01/01/20 at 18:00 Albuterol Sulfate (Ventolin Neb Soln) 2.5 mg PRN Q2HR PRN NEB DYSPNEA; Start 01/01/20 at 18:00 Methylprednisolone Sodium Succinate (SOLU-Medrol 125MG VIAL) 125 mg 1X IV ; Start 01/01/20 at 18:00 Methylprednisolone Sodium Succinate (SOLU-Medrol 125MG VIAL) 80 mg Q12HR IV Last administered on 01/02/20at 08:44; Start 01/02/20 at 09:00 Al Hydroxide/Mg Hydroxide (Mylanta Plus Xs) 30 ml PRN Q4HRS PRN PO HEARTBURN / GAS Last administered on 01/02/20at 01:41; Start 01/02/20 at 01:30 Active Scripts Active Proair Hfa Inhaler (Albuterol Sulfate) 8.5 Gm Hfa.aer.ad 2 Puff INH Q4HRS PRN Aspirin Ec (Aspirin) 81 Mg Tablet. 81 Mg PO DAILYWBKFT Reported Alprazolam 0.25 Mg Tablet 0.25 Mg PO PRN DAILY PRN Clarisa Allergy (Fexofenadine Hcl) 180 Mg Tablet 180 Mg PO DAILY Flonase Allergy Relief (Fluticasone Propionate) 9.9 Ml [place].susp 2 Sprays NS DAILY Biotin 1 Mg Capsule 1 Tab PO DAILY Ranitidine Hcl 150 Mg Tablet 150 Mg PO BID Magnesium (Magnesium Oxide) 400 Mg Capsule 1 Cap PO BID Furosemide 20 Mg Tablet 1 Tab PO DAILY Co Q-10 100 Mg Softgel (Ubidecarenone/Vit E Acetate) 1 Each Capsule 1 Each PO B Complex (Vitamin B Complex) 1 Each Tablet 1 Each PO Atorvastatin Calcium 20 Mg Tablet 1 Tab PO QHS Alprazolam 0.5 Mg Tablet 1 Tab PO BID Losartan Potassium 100 Mg Tablet 100 Mg PO DAILY Vitals/I & O Vital Sign - Last 24 Hours 01/01/20 01/01/20 01/01/20 01/01/20 15:00 19:00 19:37 20:00 Temp 98.3 98.7 98.3 98.7 Pulse 92 91 Resp 18 18 B/P (MAP) 102/60 (74) 125/69 (87) Pulse Ox 95 95 96 O2 Delivery Nasal Cannula Nasal Cannula Nasal Cannula Nasal Cannula O2 Flow Rate 2.0 2.0 2.0 2.0 01/01/20 01/02/20 01/02/20 01/02/20 23:15 03:15 07:15 07:35 Temp 98.4 98.4 98.2 98.4 98.4 98.2 Pulse 96 93 80 Resp 20 20 20 B/P (MAP) 111/58 (75) 114/62 (79) 131/72 (91) Pulse Ox 95 93 95 90 O2 Delivery Nasal Cannula Nasal Cannula Nasal Cannula Nasal Cannula O2 Flow Rate 2.0 2.0 01/02/20 08:43 Pulse 80 B/P (MAP) 131/72 Intake and Output 01/01/20 01/01/20 01/02/20 15:00 23:00 07:00 Intake Total 100 ml 0 ml Balance 100 ml 0 ml RAMÓN ROTH MD Jan 02, 2020 11:03
[2020-01-02 15:09] VITALS: BP 121/63
[2020-01-02 19:15] VITALS: BP 99/54
[2020-01-02] MEDS: ATORVASTATIN CALCIUM 20 MG TABLET PO SCH (21:05)
[2020-01-02 23:10] VITALS: BP 105/64
[2020-01-03 03:15] VITALS: BP 111/59
[2020-01-03 07:00] VITALS: BP 144/66
[2020-01-03] MEDS: ALBUTEROL SULFATE 2.5 MG/3 ML NEBU. NEB SCH ×3 (07:26→15:08)
--- NOTE | 2020-01-03 08:25 | PDOC ---
PROGRESS NOTES History of Present Illness History of Present Illness Images: Images Chest x-ray shows heart failure DISCHARGE DX Assessment/Plan Acute on chronic systolic and diastolic heart failure acute on chronic diastolic CHF; improved with diuresis. Echo 06/2019 with preserved LV systolic function superimposed edema or interstitial infiltrate on background of mild interstiti al fibrotic change and emphysema. Hyponatremia acute hypoxic resp failure acute exac copd Dilatation of the ascending aorta at 4.[address] Ectasia of the ascending aorta measuring up to 4.9 cm in greatest caliber. 12/31 , an increase of .5 cm in 3 yrs Aneurysm is considered with a measurement of 5 cm. This measured 4.7 cm previously. Acute on chronic diastolic heart failure better compensated CAD status clinically stable GERD Plan Cardiac monitoring Serial enzymes Serial EKGs Echocardiogram Correct potassium with IV saline Consult cardiology Home meds DVT prophylaxis IV Lasix ON HOLD 01/01 iv steroid taper, continue Full code Prognosis guarded bmp today o2 support ct chest REVIEWED CONSULT CTS surgery soon, /// may be poor surgical candidate due to age / COPD bp control Outpatient echo arranged Follow up with Dr. Bloom as previously scheduled 6 MIN WALK NOW D/C PLANNING 32 MIN d/w family in room Vitals Vitals Vital Signs Date Time Temp Pulse Resp B/P (MAP) Pulse Ox O2 Delivery O2 Flow Rate FiO2 01/03/20 07:26 92 Nasal Cannula 2.0 01/03/20 07:00 97.4 78 16 144/66 (92) 97.4 Physical Exam Physical Exam GEN: No apparent distress. Alert and oriented HEENT: Normal cephalic, atraumatic, external auditory canals are patent EYES: Extraocular muscles are intact, pupil are equally round and reactive to light and accommodation MUSCULOSKELETAL: Well developed , well nourished, good range of motion ENDOCRINE: No thyromegaly was palpated LYMPHATICS: No cervical chain or axillary nodes were noted HEMATOPOIETIC: No bruising NECK: Supple, no JVD, no thyromegaly was noted LUNGS: Bibasilar crackles HEART: RRR, S!, S2 present. Peripheral pulses intact, no obvious murmurs noted ABDOMEN: Soft, nontender. Positive bowel sounds, no organomegaly, normal bowel sounds EXTREMITIES: Without clubbing, cyanosis, or edema. Pedal pulses intact. Negative Homans sign NEUROLOGIC: Normal speech and tone. A&O x 3, moves all extremities, no obvious focal deficits PSYCHIATRIC: Normal affect, normal mood. Stable SKIN: No ulcerations or rashes, good skin turgor, no jaundice General: Alert, Oriented X3, Cooperative, No acute distress Heart: Regular rate, Normal S1 Lungs: Wheezing Abdomen: Normal bowel sounds, Soft Extremities: No clubbing, No cyanosis Assessment and Plan Assessmemt and Plan Problems Medical Problems: (1) Congestive heart failure Status: Acute (2) Hyponatremia Status: Acute (3) SOB (shortness of breath) Status: Acute (4) Weakness Status: Acute Comment Review of Relevant I have reviewed the following items zora (where applicable) has been applied. Medications Current Medications Albuterol/ Ipratropium (Duoneb) 3 ml 1X ONCE NEB Last administered on 12/30/19at 11:18; Start 12/30/19 at 11:15; Stop 12/30/19 at 11:16; Status DC Methylprednisolone Sodium Succinate (SOLU-Medrol 125MG VIAL) 125 mg 1X ONCE IV Last administered on 12/30/19at 11:41; Start 12/30/19 at 11:15; Stop 12/30/19 at 11:16; Status DC Sodium Chloride 1,000 ml @ 1,000 mls/hr 1X ONCE IV Last administered on 12/30/19at 11:50; Start 12/30/19 at 12:00; Stop 12/30/19 at 12:59; Status DC Furosemide (Lasix) 20 mg 1X ONCE IVP Last administered on 12/30/19at 12:24; Start 12/30/19 at 12:15; Stop 12/30/19 at 12:16; Status DC Famotidine (Pepcid) 20 mg DAILY PO Last administered on 01/02/20at 08:43; Start 12/31/19 at 09:00 Alprazolam (Xanax) 0.25 mg PRN DAILY PRN PO ANXIETY / AGITATION; Start 12/30/19 at 23:15 Alprazolam (Xanax) 0.5 mg BID PO ; Start 12/31/19 at 09:00; Stop 12/30/19 at 23:18; Status DC Albuterol Sulfate (Ventolin Neb Soln) 2.5 mg PRN Q6HRS PRN NEB SHORTNESS OF BREATH; Start 12/30/19 at 23:15; Stop 12/31/19 at 13:37; Status DC Alprazolam (Xanax) 0.5 mg BID PO Last administered on 01/02/20at 21:05; Start 12/30/19 at 23:30 Non-Formulary Medication (Fexofenadine Hcl (Clarisa Allergy)) 180 mg DAILY PO ; Start 12/31/19 at 09:00; Stop 12/30/19 at 23:47; Status DC Non-Formulary Medication (Fluticasone Propionate (Flonase Allergy Relief)) 2 sprays DAILY NS ; Start 12/31/19 at 09:00; Stop 12/30/19 at 23:47; Status DC Cetirizine HCl (ZyrTEC) 10 mg DAILY PO Last administered on 01/02/20at 08:43; Start 12/31/19 at 00:00 Fluticasone Propionate (Flonase) 2 spray DAILY NS Last administered on 01/02/20at 08:44; Start 12/31/19 at 00:00 Furosemide (Lasix) 40 mg 1X ONCE IVP Last administered on 12/31/19at 13:15; Start 12/31/19 at 13:00; Stop 12/31/19 at 13:01; Status DC Aspirin (Ecotrin) 81 mg DAILYWBKFT PO Last administered on 01/02/20at 08:42; Start 12/31/19 at 14:00 Atorvastatin Calcium (Lipitor) 20 mg QHS PO Last administered on 01/02/20 21:05; Start 12/31/19 at 21:00 Furosemide (Lasix) 20 mg DAILY PO Last administered on 01/01/20at 08:53; Start 12/31/19 at 14:00; Stop 01/01/20 at 21:33; Status DC Vitamin B Complex (Chad B) 1 tab DAILY PO Last administered on 01/02/20at 08:43; Start 12/31/19 at 14:00 Non-Formulary Medication (Biotin ) 1 tab DAILY PO ; Start 01/01/20 at 09:00; Status UNV Losartan Potassium (Cozaar) 100 mg DAILY PO Last administered on 01/02/20at 08:43; Start 12/31/19 at 14:00 Magnesium Oxide (Magnesium Oxide) 400 mg BID PO Last administered on 01/02/20at 21:05; Start 12/31/19 at 14:00 Albuterol Sulfate (Ventolin Neb Soln) 2.5 mg PRN Q4HRS PRN INH SHORTNESS OF BREATH; Start 12/31/19 at 13:45 Albuterol Sulfate (Ventolin Neb Soln) 2.5 mg RTQID NEB Last administered on 01/03/20at 07:26; Start 01/01/20 at 18:00 Albuterol Sulfate (Ventolin Neb Soln) 2.5 mg PRN Q2HR PRN NEB DYSPNEA; Start 01/01/20 at 18:00 Methylprednisolone Sodium Succinate (SOLU-Medrol 125MG VIAL) 125 mg 1X IV ; Start 01/01/20 at 18:00 Methylprednisolone Sodium Succinate (SOLU-Medrol 125MG VIAL) 80 mg Q12HR IV Last administered on 01/02/20at 21:05; Start 01/02/20 at 09:00 Al Hydroxide/Mg Hydroxide (Mylanta Plus Xs) 30 ml PRN Q4HRS PRN PO HEARTBURN / GAS Last administered on 01/02/20at 01:41; Start 01/02/20 at 01:30 Active Scripts Active Proair Hfa Inhaler (Albuterol Sulfate) 8.5 Gm Hfa.aer.ad 2 Puff INH Q4HRS PRN Aspirin Ec (Aspirin) 81 Mg Tablet.dr 81 Mg PO DAILYWBKFT Reported Alprazolam 0.25 Mg Tablet 0.25 Mg PO PRN DAILY PRN Clarisa Allergy (Fexofenadine Hcl) 180 Mg Tablet 180 Mg PO DAILY Flonase Allergy Relief (Fluticasone Propionate) 9.9 Ml [place].susp 2 Sprays NS DAILY Biotin 1 Mg Capsule 1 Tab PO DAILY Ranitidine Hcl 150 Mg Tablet 150 Mg PO BID Magnesium (Magnesium Oxide) 400 Mg Capsule 1 Cap PO BID Furosemide 20 Mg Tablet 1 Tab PO DAILY Co Q-10 100 Mg Softgel (Ubidecarenone/Vit E Acetate) 1 Each Capsule 1 Each PO B Complex (Vitamin B Complex) 1 Each Tablet 1 Each PO Atorvastatin Calcium 20 Mg Tablet 1 Tab PO QHS Alprazolam 0.5 Mg Tablet 1 Tab PO BID Losartan Potassium 100 Mg Tablet 100 Mg PO DAILY Vitals/I & O Vital Sign - Last 24 Hours 01/02/20 01/02/20 01/02/20 01/02/20 08:43 11:02 11:11 15:04 Temp 98.3 98.3 Pulse 80 73 Resp 20 B/P (MAP) 131/72 116/64 (81) Pulse Ox 95 O2 Delivery Nasal Cannula Nasal Cannula Nasal Cannula O2 Flow Rate 2.0 2.0 2.0 01/02/20 01/02/20 01/02/20 01/02/20 15:09 19:15 20:00 23:10 Temp 97.7 97.4 97.4 97.7 97.4 97.4 Pulse 89 100 87 Resp 18 19 18 B/P (MAP) 121/63 (82) 99/54 (69) 105/64 (78) Pulse Ox 95 92 90 O2 Delivery Nasal Cannula Nasal Cannula Nasal Cannula Nasal Cannula O2 Flow Rate 2.0 2.0 2.0 2.0 01/03/20 01/03/20 01/03/20 03:15 07:00 07:26 Temp 97.5 97.4 97.5 97.4 Pulse 77 78 Resp 18 16 B/P (MAP) 111/59 (76) 144/66 (92) Pulse Ox 95 92 92 O2 Delivery Nasal Cannula Nasal Cannula Nasal Cannula O2 Flow Rate 2.0 2.0 2.0 Intake and Output 01/02/20 01/02/20 01/03/20 15:00 23:00 07:00 Intake Total 360 ml 360 ml 600 ml Balance 360 ml 360 ml 600 ml RAMÓN ROTH MD Jan 03, 2020 08:25
[2020-01-03] MEDS: methylPREDNISolone SOD SUCC PF 125 MG/2 ML VIAL. IV SCH (08:27)
[2020-01-03] MEDS: FLUTICASONE 50MCG/NASAL SPRAY 16GM BOTTLE. NS SCH (08:27)
[2020-01-03] MEDS: CETIRIZINE HCL 10 MG TABLET. PO SCH (08:28)
[2020-01-03] MEDS: VITAMIN B COMPLEX TABLET. PO SCH (08:28)
[2020-01-03] MEDS: FAMOTIDINE 20 MG TABLET. PO SCH (08:28)
[2020-01-03] MEDS: ALPRAZolam 0.5 MG TABLET PO SCH (08:28)
[2020-01-03] MEDS: ASPIRIN ENTERIC COATED 81 MG TABLET.DR. PO SCH (08:28)
[2020-01-03] MEDS: LOSARTAN POTASSIUM 50 MG TABLET. PO SCH (08:29)
[2020-01-03] MEDS: MAGNESIUM OXIDE 400 MG TABLET PO SCH (08:29)
[2020-01-03 11:00] VITALS: BP 135/59
--- NOTE | 2020-01-03 13:42 | PDOC3 ---
Discharge Summary Date of Admission: Dec 30, 2019 Date of Discharge: Jan 03, 2020 Follow-Up: 3-5 days Admitting Diagnosis comment: DISCHARGE DX Assessment/Plan Acute on chronic systolic and diastolic heart failure acute on chronic diastolic CHF; improved with diuresis. Echo 06/2019 with preserved LV systolic function superimposed edema or interstitial infiltrate on background of mild interstitial fibrotic change and emphysema. Hyponatremia acute hypoxic resp failure acute exac copd Dilatation of the ascending aorta at 4.[address] Ectasia of the ascending aorta measuring up to 4.9 cm in greatest caliber. 12/31 , an increase of .5 cm in 3 yrs Aneurysm is considered with a measurement of 5 cm. This measured 4.7 cm previously. Acute on chronic diastolic heart failure better compensated CAD status clinically stable GERD Plan Cardiac monitoring Serial enzymes Serial EKGs Echocardiogram Correct potassium with IV saline Consult cardiology Home meds DVT prophylaxis IV Lasix ON HOLD 01/01 iv steroid taper, continue Full code Prognosis guarded bmp today o2 support ct chest REVIEWED CONSULT CTS surgery soon, /// may be poor surgical candidate due to age / COPD bp control Outpatient echo arranged Follow up with Dr. Bloom as previously scheduled 6 MIN WALK NOW MAY NEED HOME O2 D/C PLANNING 32 MIN d/w family in room Vitals Vitals Vital Signs Date Time Temp Pulse Resp B/P (MAP) Pulse Ox O2 Delivery O2 Flow Rate FiO2 01/03/20 07:26 92 Nasal Cannula 2.0 01/03/20 07:00 97.4 78 16 144/66 (92) 97.4 Physical Exam Physical Exam GEN: No apparent distress. Alert and oriented HEENT: Normal cephalic, atraumatic, external auditory canals are patent EYES: Extraocular muscles are intact, pupil are equally round and reactive to light and accommodation MUSCULOSKELETAL: Well developed , well nourished, good range of motion ENDOCRINE: No thyromegaly was palpated LYMPHATICS: No cervical chain or axillary nodes were noted HEMATOPOIETIC: No bruising NECK: Supple, no JVD, no thyromegaly was noted LUNGS: Bibasilar crackles HEART: RRR, S!, S2 present. Peripheral pulses intact, no obvious murmurs noted ABDOMEN: Soft, nontender. Positive bowel sounds, no organomegaly, normal bowel sounds EXTREMITIES: Without clubbing, cyanosis, or edema. Pedal pulses intact. Negative Homans sign NEUROLOGIC: Normal speech and tone. A&O x 3, moves all extremities, no obvious focal deficits PSYCHIATRIC: Normal affect, normal mood. Stable SKIN: No ulcerations or rashes, good skin turgor, no jaundice General: Alert, Oriented X3, Cooperative, No acute distress Heart: Regular rate, Normal S1 Lungs: Wheezing Abdomen: Normal bowel sounds, Soft Extremities: No clubbing, No cyanosis FINAL DIAGNOSIS Problems Medical Problems: (1) Congestive heart failure Status: Acute (2) Hyponatremia Status: Acute (3) SOB (shortness of breath) Status: Acute (4) Weakness Status: Acute Brief Hospital Course Ms. Addison is a 84 old [sex] who presented with [ COPD EXAC, CHF] CONDITION AT DISCHARGE: Improved Discharge Medications Current Medications Albuterol/ Ipratropium (Duoneb) 3 ml 1X ONCE NEB Last administered on 12/30/19at 11:18; Start 12/30/19 at 11:15; Stop 12/30/19 at 11:16; Status DC Methylprednisolone Sodium Succinate (SOLU-Medrol 125MG VIAL) 125 mg 1X ONCE IV Last administered on 12/30/19at 11:41; Start 12/30/19 at 11:15; Stop 12/30/19 at 11:16; Status DC Sodium Chloride 1,000 ml @ 1,000 mls/hr 1X ONCE IV Last administered on 12/30/19at 11:50; Start 12/30/19 at 12:00; Stop 12/30/19 at 12:59; Status DC Furosemide (Lasix) 20 mg 1X ONCE IVP Last administered on 12/30/19at 12:24; Start 12/30/19 at 12:15; Stop 12/30/19 at 12:16; Status DC Famotidine (Pepcid) 20 mg DAILY PO Last administered on 01/03/20at 08:28; Start 12/31/19 at 09:00 Alprazolam (Xanax) 0.25 mg PRN DAILY PRN PO ANXIETY / AGITATION; Start 12/30/19 at 23:15 Alprazolam (Xanax) 0.5 mg BID PO ; Start 12/31/19 at 09:00; Stop 12/30/19 at 23:18; Status DC Albuterol Sulfate (Ventolin Neb Soln) 2.5 mg PRN Q6HRS PRN NEB SHORTNESS OF BREATH; Start 12/30/19 at 23:15; Stop 12/31/19 at 13:37; Status DC Alprazolam (Xanax) 0.5 mg BID PO Last administered on 01/03/20at 08:28; Start 12/30/19 at 23:30 Non-Formulary Medication (Fexofenadine Hcl (Clarisa Allergy)) 180 mg DAILY PO ; Start 12/31/19 at 09:00; Stop 12/30/19 at 23:47; Status DC Non-Formulary Medication (Fluticasone Propionate (Flonase Allergy Relief)) 2 sprays DAILY NS ; Start 12/31/19 at 09:00; Stop 12/30/19 at 23:47; Status DC Cetirizine HCl (ZyrTEC) 10 mg DAILY PO Last administered on 01/03/20at 08:28; Start 12/31/19 at 00:00 Fluticasone Propionate (Flonase) 2 spray DAILY NS Last administered on 01/03/20at 08:27; Start 12/31/19 at 00:00 Furosemide (Lasix) 40 mg 1X ONCE IVP Last administered on 12/31/19at 13:15; Start 12/31/19 at 13:00; Stop 12/31/19 at 13:01; Status DC Aspirin (Ecotrin) 81 mg DAILYWBKFT PO Last administered on 01/03/20at 08:28; Start 12/31/19 at 14:00 Atorvastatin Calcium (Lipitor) 20 mg QHS PO Last administered on 01/02/20at 21:05; Start 12/31/19 at 21:00 Furosemide (Lasix) 20 mg DAILY PO Last administered on 01/01/20at 08:53; Start 12/31/19 at 14:00; Stop 01/01/20 at 21:33; Status DC Vitamin B Complex (Chad B) 1 tab DAILY PO Last administered on 01/03/20at 08:28; Start 12/31/19 at 14:00 Non-Formulary Medication (Biotin ) 1 tab DAILY PO ; Start 01/01/20 at 09:00; Status UNV Losartan Potassium (Cozaar) 100 mg DAILY PO Last administered on 01/03/20at 08:29; Start 12/31/19 at 14:00 Magnesium Oxide (Magnesium Oxide) 400 mg BID PO Last administered on 01/03/20at 08:29; Start 12/31/19 at 14:00 Albuterol Sulfate (Ventolin Neb Soln) 2.5 mg PRN Q4HRS PRN INH SHORTNESS OF BREATH; Start 12/31/19 at 13:45 Albuterol Sulfate (Ventolin Neb Soln) 2.5 mg RTQID NEB Last administered on 01/03/20at 07:26; Start 01/01/20 at 18:00 Albuterol Sulfate (Ventolin Neb Soln) 2.5 mg PRN Q2HR PRN NEB DYSPNEA; Start 01/01/20 at 18:00 Methylprednisolone Sodium Succinate (SOLU-Medrol 125MG VIAL) 125 mg 1X IV ; Start 01/01/20 at 18:00 Methylprednisolone Sodium Succinate (SOLU-Medrol 125MG VIAL) 80 mg Q12HR IV Last administered on 01/03/20at 08:27; Start 01/02/20 at 09:00 Al Hydroxide/Mg Hydroxide (Mylanta Plus Xs) 30 ml PRN Q4HRS PRN PO HEARTBURN / GAS Last administered on 01/02/20at 01:41; Start 01/02/20 at 01:30 Active Scripts Active Proair Hfa Inhaler (Albuterol Sulfate) 8.5 Gm Hfa.aer.ad 2 Puff INH Q4HRS PRN Aspirin Ec (Aspirin) 81 Mg Tablet.dr 81 Mg PO DAILYWBKFT Reported Alprazolam 0.25 Mg Tablet 0.25 Mg PO PRN DAILY PRN Clarisa Allergy (Fexofenadine Hcl) 180 Mg Tablet 180 Mg PO DAILY Flonase Allergy Relief (Fluticasone Propionate) 9.9 Ml [place].susp 2 Sprays NS DAILY Biotin 1 Mg Capsule 1 Tab PO DAILY Ranitidine Hcl 150 Mg Tablet 150 Mg PO BID Magnesium (Magnesium Oxide) 400 Mg Capsule 1 Cap PO BID Furosemide 20 Mg Tablet 1 Tab PO DAILY Co Q-10 100 Mg Softgel (Ubidecarenone/Vit E Acetate) 1 Each Capsule 1 Each PO B Complex (Vitamin B Complex) 1 Each Tablet 1 Each PO Atorvastatin Calcium 20 Mg Tablet 1 Tab PO QHS Alprazolam 0.5 Mg Tablet 1 Tab PO BID Losartan Potassium 100 Mg Tablet 100 Mg PO DAILY Vital Signs Vital Signs Date Time Temp Pulse Resp B/P (MAP) Pulse Ox O2 Delivery O2 Flow Rate FiO2 01/03/20 11:00 97.4 89 20 135/59 (84) 92 Nasal Cannula 2.0 97.4 Allergies Allergies Coded Allergies Type Severity Reaction Last Updated Verified amlodipine Allergy Intermediate 07/09/19 Yes codeine Allergy Intermediate 09/22/16 Yes lisinopril Allergy Intermediate 07/09/19 Yes Disposition/Orders: D/C to Home w/ HH RAMÓN ROTH MD Jan 03, 2020 13:42
[2020-01-03] MEDS ORDERED: MAG30ORA2 PO (13:45)
[2020-01-03] MEDS ORDERED: PRED50TA PO (13:45)
--- NOTE | 2020-01-03 13:46 | DISCH ---
DISCHARGE INSTRUCTIONS Condition on Discharge Condition on Discharge: Stable Activity After Discharge Activity Instructions for Disc: Activity as tolerated Lifting Instructions after Dis: No heavy lifting, No pulling or pushing Exercise Instruction after Dis: Progress as tolerated Driving Instructions after Dis: Do not drive today Weight Bearing Status after Di: As tolerated Diet after Discharge Diet after Discharge: Cardiac Diet Texture: Regular Liquid Texture: Thin Liquid Swallowing Supervision: None needed Wound Incision Care Wound/Incision Care: No wound care needed Checks after Discharge Checks after discharge: Check blood press - daily, Check your Temp as needed Contacting the DR. after DC Call your doctor for: Concerns you may have Follow-Up Follow up with: PCP NEXT WEEK Follow Up With: CARDIOLOGY SOON Treatment/Equipment after DC Adaptive Equipment Issued: None RAMÓN ROTH MD Jan 03, 2020 13:46
[2020-01-03 15:00] VITALS: BP 125/62
--- NOTE | 2020-01-03 19:32 | NUR ---
Discharge Note: KATI BOWERS J6 [facility] Discharge instructions and discharge home medications reviewed with patient and a copy given. All questions have been answered and understanding verbalized. The following instructions and handouts were given: Oxygen at 3LPM on exertion, Keep away from open flame, no smoking at home. Home oxygen use handout discussed with patient and the patient's son. Called [facility], instructed patient to call phone number once home. Follow up with PCP in a week Follow up [facility] cardiology as scheduled. Watch out for worsening of symptoms, severe, dyspnea, fever, chest pain. Take home meds as directed. Discontinued lines and drains: peripheral IV intact, patient tolerated removal, no complications noted Patient discharged to home with self care via wheelchair accompanied by the patient's son at 1830.
== END 2020-01-03 18:30 | disposition home or self-care (01) | DRG 291 ==
LOC: ER 10:36 → ED HOLD 12:30 → 6 SOUTH 20:56
PROVIDERS: ADMIT Internal Medicine; ATTEND Internal Medicine
DX: I11.0 Hypertensive heart disease with heart failure (principal); J96.01 Acute respiratory failure with hypoxia; N17.9 Acute kidney failure, unspecified; E87.1 Hypo-osmolality and hyponatremia; I50.43 Acute on chronic combined systolic (congestive) and diastolic (congestive) heart failure; E78.00 Pure hypercholesterolemia, unspecified; E78.5 Hyperlipidemia, unspecified; F41.9 Anxiety disorder, unspecified; I25.10 Atherosclerotic heart disease of native coronary artery without angina pectoris; I27.29 Other secondary pulmonary hypertension; J43.9 Emphysema, unspecified; G43.909 Migraine, unspecified, not intractable, without status migrainosus; M19.90 Unspecified osteoarthritis, unspecified site; K21.9 Gastro-esophageal reflux disease without esophagitis; K44.9 Diaphragmatic hernia without obstruction or gangrene; Z82.49 Family history of ischemic heart disease and other diseases of the circulatory system; Z83.3 Family history of diabetes mellitus; Z85.41 Personal history of malignant neoplasm of cervix uteri; Z85.42 Personal history of malignant neoplasm of other parts of uterus; Z85.828 Personal history of other malignant neoplasm of skin; Z87.11 Personal history of peptic ulcer disease; Z87.891 Personal history of nicotine dependence; Z90.710 Acquired absence of both cervix and uterus; Z95.5 Presence of coronary angioplasty implant and graft
CPT/HCPCS: 36415; 71046; 71250; 80048; 83880; 84484; 85025; 87804; 93005; 94618; 94640; 94760; 99285; J1940; J2930; J7030; J7613; J7620; G0378

== ENCOUNTER → 2020-01-07 | Outpatient (CLI) | payer MEDICARE ==
[2020-01-03 11:00] VITALS: BP 135/59
[~2020-01-07] MED LIST changes: +ALPR0.254 PO; +BIOT1CAP3 PO; +FEXO180T81 PO; +FLUT9.9S NS; +MAG30ORA2 PO; +PRED50TA PO
--- NOTE | 2020-01-07 14:03 | CARD ---
MR#: [id number] Date of Study: 01/07/2020 Ordering Physician: ESTIVEN RETANA, Referring Physician: ESTIVEN RETANA, Tech: Marvin Pennington [facility] APPROVED REPORT EXAM: Two-dimensional and M-mode echocardiogram with Doppler and color Doppler. Other Information Quality : AverageHR: 86bpm INDICATION CAD Congestive Heart Failure 2D DIMENSIONS Left Atrium(2D)3.1 (1.6-4.0cm)IVSd1.1 (0.7-1.1cm) Aortic Root(2D)4.1 (2.0-3.7cm)LVDd4.0 (3.9-5.9cm) PWd1.0 (0.7-1.1cm)LVDs3.2 (2.5-4.0cm) FS (%) 20.4 %SV30.3 ml LVEF(%)42.1 (>50%) Aortic Valve AoV Peak Jaun.134.4cm/Chirag Peak GR.7.2mmHg LVOT Peak Jaun.92.4cm/Blake P 1/2 Ggdk843rh Mitral Valve MV E Vwygykrb03.5cm/sMV DECEL [id number] MV A Vdgizswh22.7cm/sE/A Ratio0.6 MV A [id number] Pulmonary Valve PV Peak Eeolwuty29.4cm/s Tricuspid Valve TR P. Nesciizu745is/sRAP [id number] TR Peak Gr.97jqBoQTJQ73umUp Pulmonary Vein S1 Fgyfsmqr38.9cm/sD2 Svneqxko50.2cm/s PVa [id number] LEFT VENTRICLE The left ventricle is normal size. There is normal left ventricular wall thickness. The systolic func tion is mildly impaired. The Ejection Fraction is 45%. There is mild global hypokinesis. Transmitral Doppler flow pattern is Grade I-abnormal relaxation pattern. RIGHT VENTRICLE The right ventricle is normal size. There is normal right ventricular wall thickness. The right ventr icular systolic function is normal. ATRIA The left atrium size is normal. The right atrium size is normal. The interatrial septum is intact wit h no evidence for an atrial septal defect or patent foramen ovale as noted on 2-D or Doppler imaging. AORTIC VALVE The aortic valve is normal in structure and function. Doppler and Color Flow revealed mild-moderate a ortic regurgitation. There is no aortic valvular stenosis. There is no aortic valvular vegetation. MITRAL VALVE The mitral valve is normal in structure and function. There is no evidence of mitral valve prolapse. There is no mitral valve stenosis. Doppler and Color-flow revealed moderate mitral regurgitation. TRICUSPID VALVE The tricuspid valve is normal in structure and function. Doppler and Color Flow revealed mild tricusp id regurgitation with PAP of 37 mmHg. There is no tricuspid valve prolapse or vegetation. There is no tricuspid valve stenosis. PULMONIC VALVE Doppler and Color Flow revealed trace pulmonic valvular regurgitation. There is no pulmonic valvular stenosis. GREAT VESSELS The aortic root is mildly enlarged to 4.1 cm. The ascending aorta is Moderately dilated to 4.6 cm. Th e pulmonary artery is normal. The IVC is normal in size and collapses >50% with inspiration. PERICARDIAL EFFUSION There is no pleural effusion. The pericardium appears normal. Critical Notification Critical Value: No <Conclusion> The systolic function is mildly impaired. The Ejection Fraction is 45%. There is mild global hypokinesis. Doppler and Color Flow revealed mild-moderate aortic regurgitation. Doppler and Color-flow revealed moderate mitral regurgitation. The ascending aorta is Moderately dilated to 4.6 cm. Signed by : Sammy Irwin, Electronically Approved : 01/07/2020 14:03:00
== END | disposition home or self-care (01) ==
LOC: ECHO 12:43
PROVIDERS: ATTEND Internal Medicine Cardiovascular Disease
DX: I08.3 Combined rheumatic disorders of mitral, aortic and tricuspid valves (principal); I77.810 Thoracic aortic ectasia; I31.3 Pericardial effusion (noninflammatory); I25.10 Atherosclerotic heart disease of native coronary artery without angina pectoris; I50.9 Heart failure, unspecified
CPT/HCPCS: 93306

== ENCOUNTER 2021-02-25 09:41 | Emergency (ER) | payer MEDICARE, OTHER ==
[~2021-02-25] VITALS: Ht 165.1 cm; Wt 65.0 kg
[~2021-02-25 09:41] MED LIST changes: -ASPI-612 PO; +ASPI-886 PO
--- NOTE | 2021-02-25 10:37 | ED.ADGEN ---
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 Patient states she was going to use a restroom around 6 AM which started feeling shortness of breath, palpitations and tachycardia, lightheadedness. Patient states she did not syncopized. Denies any chest pain. Has a history significant for [place] with 3 stents placed in 2007. Is currently taking aspirin without any blood thinners. Denies any nausea, vomiting, diaphoresis. Patient states has a history of chronic constipation. Also has history of chronic left lower extremity edema. Patient says she has had no increase in stress or anxiety, but took her Xanax and losartan when symptoms occurred. Patient states her blood pressure tends to go up when she is feeling anxious. Review of Systems: Review of Systems: All other systems within normal limits except for as noted in the HPI Current Medications: Current Medications Medications (Trade) Dose Ordered Sig/Bo Start Time Stop Time Status Last Admin Dose Admin Info (CONTRAST GIVEN -- Rx MONITORING) 1 each PRN DAILY PRN 02/25/21 13:15 02/27/21 13:14 Iohexol (Omnipaque 350 Mg/ml) 100 ml 1X ONCE 02/25/21 13:00 02/25/21 13:01 DC 02/25/21 13:02 100 ML Allergies: Allergies: Allergies Coded Allergies Type Severity Reaction Last Updated Verified amlodipine Allergy Intermediate 02/25/21 Yes codeine Allergy Intermediate 02/25/21 Yes lisinopril Allergy Intermediate 02/25/21 Yes Physical Exam: PE: Constitutional: Well developed, well nourished, no acute distress, non-toxic appearance. [] HENT: Normocephalic, atraumatic, bilateral external ears normal, nose normal. [] Eyes: PERRLA, conjunctiva normal, no discharge. [] Neck: No rigidity, supple, no stridor. [] Cardiovascular: Regular rate and rhythm, brisk cap refill [] Lungs & Thorax: Non labored symmetric respirations, no tachypnea or respiratory distress [] Abdomen: Soft, nondistended. Skin: Warm, dry, no erythema, no rash. [] Back: Unremarkable Extremities: No deformities, range of motion grossly intact, trace left lower e xtremity edema, right no lower extremity edema [] Neurologic: Alert and oriented X 3, no focal deficits noted. [] Psychologic: Affect normal, judgement normal, mood normal. [] Current Patient Data: Labs: Laboratory Tests Test 02/25/21 10:01 02/25/21 12:15 White Blood Count 4.9 x10^3/uL (4.0-11.0) Red Blood Count 4.07 x10^6/uL (3.50-5.40) Hemoglobin 12.5 g/dL (12.0-15.5) Hematocrit 36.6 % (36.0-47.0) Mean Corpuscular Volume 90 fL (79-100) Mean Corpuscular Hemoglobin 31 pg (25-35) Mean Corpuscular Hemoglobin Concent 34 g/dL (31-37) Red Cell Distribution Width 14.1 % (11.5-14.5) Platelet Count 260 x10^3/uL (140-400) Neutrophils (%) (Auto) 63 % (31-73) Lymphocytes (%) (Auto) 26 % (24-48) Monocytes (%) (Auto) 8 % (0-9) Eosinophils (%) (Auto) 2 % (0-3) Basophils (%) (Auto) 1 % (0-3) Neutrophils # (Auto) 3.1 x10^3/uL (1.8-7.7) Lymphocytes # (Auto) 1.3 x10^3/uL (1.0-4.8) Monocytes # (Auto) 0.4 x10^3/uL (0.0-1.1) Eosinophils # (Auto) 0.1 x10^3/uL (0.0-0.7) Basophils # (Auto) 0.0 x10^3/uL (0.0-0.2) D-Dimer (Becky) 1.36 ug/mlFEU (0.00-0.50) H Sodium Level 138 mmol/L (136-145) Potassium Level 3.7 mmol/L (3.5-5.1) Chloride Level 103 mmol/L (98-107) Carbon Dioxide Level 25 mmol/L (21-32) Anion Gap 10 (6-14) Blood Urea Nitrogen 12 mg/dL (7-20) Creatinine 0.8 mg/dL (0.6-1.0) Estimated GFR (Cockcroft-Gault) 68.0 BUN/Creatinine Ratio 15 (6-20) Glucose Level 109 mg/dL (70-99) H Lactic Acid Level 1.6 mmol/L (0.4-2.0) Calcium Level 8.5 mg/dL (8.5-10.1) Phosphorus Level 3.5 mg/dL (2.6-4.7) Magnesium Level 1.9 mg/dL (1.8-2.4) Total Bilirubin 0.6 mg/dL (0.2-1.0) Aspartate Amino Transferase (AST) 18 U/L (15-37) Alanine Aminotransferase (ALT) 22 U/L (14-59) Alkaline Phosphatase 84 U/L (46-116) Troponin I Quantitative < 0.017 ng/mL (0.000-0.055) Total Protein 6.9 g/dL (6.4-8.2) Albumin 3.6 g/dL (3.4-5.0) Albumin/Globulin Ratio 1.1 (1.0-1.7) Urine Collection Type Unknown Urine Color Yellow Urine Clarity Clear Urine pH 6.5 (<5.0-8.0) Urine Specific [place] <=1.005 (1.000-1.030) Urine Protein Negative mg/dL (NEG-TRACE) Urine Glucose (UA) Negative mg/dL (NEG) Urine Ketones (Stick) Negative mg/dL (NEG) Urine Blood Negative (NEG) Urine Nitrite Negative (NEG) Urine Bilirubin Negative (NEG) Urine Urobilinogen Dipstick 0.2 mg/dL (0.2 mg/dL) Urine Leukocyte Esterase Negative (NEG) Urine RBC Occ /HPF (0-2) Urine WBC 0 /HPF (0-4) Urine Squamous Epithelial Cells Few /LPF Urine Bacteria 0 /HPF (0-FEW) Urine Mucus Slight /LPF Laboratory Tests 02/25/21 10:01 Laboratory Tests 02/25/21 10:01 Vital Signs: Vital Signs Date Time Temp Pulse Resp B/P (MAP) Pulse Ox O2 Delivery O2 Flow Rate FiO2 02/25/21 12:52 80 18 166/76 (106) 94 Room Air 02/25/21 09:52 98.1 98.1 EKG: EKG: Sinus rhythm heart rate 70 bpm, normal axis. Occasional PVCs, no ST elevation or depression, inferior Q waves. [] Heart Score: C/O Chest Pain: No Risk Factors: Risk Factors: DM, Current or recent (<one month) smoker, HTN, HLP, family history of CAD, obesity. Risk Scores: Score 0 - 3: 2.5% MACE over next 6 weeks - Discharge Home Score 4 - 6: 20.3% MACE over next 6 weeks - Admit for Clinical Observation Score 7 - 10: 72.7% MACE over next 6 weeks - Early Invasive Strategies Radiology/Procedures: Radiology/Procedures: CTA CHEST INDICATION: dyspnea. Comparison: Chest radiograph 03/09/2021. CT chest 12/31/2019. CTA chest 06/15/2017. CTA Head and Neck 06/10/2016. TECHNIQUE: Following the uneventful administration of intravenous contrast, 100 cc Omnipaque 350, axial CT sections were obtained through the lungs and upper abdomen. Multiplanar reconstructions and MIP images were obtained. PQRS compliance statement: One or more of the following individualized dose reduction techniques were utilized for this examination: 1. Automated exposure control 2. Adjustment of the mA and/or kV according to patient size 3. Use of iterative reconstruction technique FINDINGS: Pulmonary arteries: No evidence of pulmonary thromboembolic disease Lungs and Airways: No pulmonary mass or consolidation. Biapical subpleural fibrosis. Continued long-term stability of left apical spiculated opacity. Stable few small pulmonary nodules. Calcified pulmonary granulomas. Paraseptal and centrilobular emphysema. No abnormality of the central airways. Pleura: The pleural spaces are normal. Heart and Mediastinum: The visualized thyroid is normal in size and attenuation. No axillary or supraclavicular lymphadenopathy. No mediastinal, hilar or retroc [place] lymphadenopathy. Calcified mediastinal and hilar lymph nodes consistent with remote granulomatous disease. Normal cardiac size. No pericardial effusion. Coronary artery atherosclerotic disease. Aneurysmal ascending thoracic aorta measures 4.6 cm at the level of the right pulmonary artery, unchanged from the prior exam. Moderate-sized hiatal hernia. Abdomen: Calcified splenic granulomas. Partially visualized renal cysts. Bones and Soft Tissues: Degenerative changes spine. IMPRESSION: 1. No evidence of pulmonary thromboembolic disease. 2. No pulmonary mass or consolidation. [] Course & Med Decision Making: Course & Med Decision Making Pertinent Labs and Imaging studies reviewed. (See chart for details) Offered admission for further work-up with cardiology and pulmonology to assess whether the palpitations and lightheadedness were related to her lung disease or heart disease. Patient initially started admission but then decided to change her mind. 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 Discussed return precautions. Patient agrees to plan [] Dragon Disclaimer: Dragon Disclaimer: This electronic medical record was generated, in whole or in part, using a voice recognition dictation system. Departure Departure Impression: Primary Impression: Dyspnea Additional Impression: Palpitations Disposition: 01 DC HOME SELF CARE/HOMELESS Condition: STABLE Referrals: JOAQIUN ODOM MD (PCP) ESTIVEN RETANA MD Patient Instructions: Shortness of Breath Problem Qualifiers SANDRA SAVAGE MD Feb 25, 2021 10:37
[2021-02-25 10:43] LABS: BASO % 1 % (0-3); EOS # 0.1 x10^3/uL (0.0-0.7); EOS % 2 % (0-3); HEMATOCRIT 36.6 % (36.0-47.0); HEMOGLOBIN 12.5 g/dL (12.0-15.5); LYMPH # 1.3 x10^3/uL (1.0-4.8); LYMPH % 26 % (24-48); MEAN CORPUSCULAR HEMOGLOBIN 31 pg (25-35); MEAN CORPUSCULAR HGB CONC 34 g/dL (31-37); MEAN CORPUSCULAR VOLUME 90 fL (79-100); MONO # 0.4 x10^3/uL (0.0-1.1); MONO % 8 % (0-9); NEUT # 3.1 x10^3/uL (1.8-7.7); NEUT % 63 % (31-73); PLATELET COUNT 260 x10^3/uL (140-400); RED BLOOD COUNT 4.07 x10^6/uL (3.50-5.40); RED CELL DISTRIBUTION WIDTH 14.1 % (11.5-14.5); WHITE BLOOD COUNT 4.9 x10^3/uL (4.0-11.0)
[2021-02-25 10:55] LABS: CALCIUM 8.5 mg/dL (8.5-10.1); CREATININE 0.8 mg/dL (0.6-1.0); POTASSIUM 3.7 mmol/L (3.5-5.1)
[2021-02-25 11:01] LABS: ALBUMIN 3.6 g/dL (3.4-5.0); ALBUMIN/GLOBULIN RATIO 1.1 (1.0-1.7); MAGNESIUM 1.9 mg/dL (1.8-2.4); PHOSPHORUS 3.5 mg/dL (2.6-4.7); TOTAL BILIRUBIN 0.6 mg/dL (0.2-1.0); TOTAL PROTEIN 6.9 g/dL (6.4-8.2)
--- NOTE | 2021-02-25 11:09 | RAD ---
EXAM: XR CHEST 1V 02/25/2021 10:33 AM CLINICAL INDICATION: Dyspnea and palpitations COMPARISON: Chest radiograph 12/30/[address] chest 10/09/2020 TECHNIQUE: AP upright view of the chest FINDINGS: The cardiomediastinal silhouette is stable. There are calcified mediastinal and hilar lymp h nodes. The lungs are hyperexpanded with increased lucency at the apices, consistent with COPD. Calc ified granulomas in the right upper lobe. There is no consolidation, pleural effusion, or pneumothora x. No pulmonary edema. Bilateral breast implants are noted. IMPRESSION: 1. No acute cardiopulmonary abnormality. 2. COPD. 3. Old granulomatous disease. Electronically signed by: Marilee Renteria MD (02/25/2021 11:07 AM) [id number]
[2021-02-25 12:39] LABS: BILIRUBIN,URINE NEGATIVE (NEG); CLARITY,URINE CLEAR; COLOR,URINE YELLOW; NITRITE,URINE NEGATIVE (NEG); PH,URINE 6.5 (<5.0-8.0); PROTEIN,URINE NEGATIVE (NEG-TRACE); UROBILINOGEN,URINE 0.2 mg/dL (0.2 mg/dL)
[2021-02-25 12:49] LABS: BACTERIA,URINE 0 /HPF (0-FEW); RBC,URINE OCC /HPF (0-2); WBC,URINE 0 /HPF (0-4)
[2021-02-25 12:52] VITALS: BP 166/76
[2021-02-25] MEDS ORDERED: IOHEXOL 350 MG/ML 100 ML VIAL. IV ONE (13:00)
[2021-02-25] MEDS ORDERED: CONTRAST GIVEN. MC PRN (13:15)
--- NOTE | 2021-02-25 13:31 | RAD ---
CTA CHEST INDICATION: dyspnea. Comparison: Chest radiograph 03/09/2021. CT chest 12/31/2019. CTA chest 06/15/2017. CTA Head and Neck . TECHNIQUE: Following the uneventful administration of intravenous contrast, 100 cc Omnipaque 350, axi al CT sections were obtained through the lungs and upper abdomen. Multiplanar reconstructions and MIP images were obtained. PQRS compliance statement: One or more of the following individualized dose reduction techniques were utilized for this examinat ion: 1. Automated exposure control 2. Adjustment of the mA and/or kV according to patient size 3. Use of iterative reconstruction technique FINDINGS: Pulmonary arteries: No evidence of pulmonary thromboembolic disease Lungs and Airways: No pulmonary mass or consolidation. Biapical subpleural fibrosis. Continued long-t erm stability of left apical spiculated opacity. Stable few small pulmonary nodules. Calcified pulmon tristan granulomas. Paraseptal and centrilobular emphysema. No abnormality of the central airways. Pleura: The pleural spaces are normal. Heart and Mediastinum: The visualized thyroid is normal in size and attenuation. No axillary or supra clavicular lymphadenopathy. No mediastinal, hilar or retrocrural lymphadenopathy. Calcified mediastin al and hilar lymph nodes consistent with remote granulomatous disease. Normal cardiac size. No perica rdial effusion. Coronary artery atherosclerotic disease. Aneurysmal ascending thoracic aorta measures 4.6 cm at the level of the right pulmonary artery, unchanged from the prior exam. Moderate-sized hia jaylon hernia. Abdomen: Calcified splenic granulomas. Partially visualized renal cysts. Bones and Soft Tissues: Degenerative changes spine. IMPRESSION: 1. No evidence of pulmonary thromboembolic disease. 2. No pulmonary mass or consolidation. Electronically signed by: Luis Alberto Gonzalez MD (02/25/2021 1:29 PM) [id number]
--- NOTE | 2021-02-25 14:35 | PDOC2 ---
CARDIAC CONSULT DATE OF CONSULT Date of Consult DATE: 02/25/21 TIME: 14:22 REASON FOR CONSULT Reason for Consult: Dyspnea REFERRING PHYSICIAN Referring Physician: Seda SOURCE Source: Chart review, Patient PAST MEDICAL HISTORY Past Medical History Cardiovascular: CAD, HTN, Hyperlipidemia Pulmonary: COPD CENTRAL NERVOUS SYSTEM: Migraine GI: GERD, PUD Heme/Onc: Cancer (uterine) Psych: Anxiety Musculoskeletal: Osteoarthritis Rheumatologic: No pertinent hx Infectious disease: No pertinent hx ENT: No pertinent hx Renal/: No pertinent hx Endocrine: No pertinent hx Dermatology: Basal cell PAST SURGICAL HISTORY Past Surgical History Mohs surgery, Nasal Reconstructive Surgery, PCI/stent x3 10 yrs ago, Hysterectomy FAMILY HISTORY Family History noncontributory SOCIAL HISTORY Smoke: No ALCOHOL: none Drugs: None Lives: with Family CURRENT MEDICATIONS CURRENT MEDICATIONS Current Medications Medications (Trade) Dose Ordered Sig/Bo Route PRN Reason Start Time Stop Time Status Last Admin Dose Admin Iohexol (Omnipaque 350 Mg/ml) 100 ml 1X ONCE IV 02/25/21 13:00 02/25/21 13:01 DC 02/25/21 13:02 ALLERGIES ALLERGIES: Coded Allergies: amlodipine (Verified Allergy, Intermediate, 02/25/21) palpitations, swelling in legs codeine (Verified Allergy, Intermediate, 02/25/21) lisinopril (Verified Allergy, Intermediate, 02/25/21) cough VITALS/I&O VITALS/I&O: Vital Signs Date Time Temp Pulse Resp B/P (MAP) Pulse Ox O2 Delivery O2 Flow Rate FiO2 02/25/21 12:52 80 18 166/76 (106) 94 Room Air 02/25/21 09:52 98.1 98.1 LABS Lab: Laboratory Tests Test 02/25/21 10:01 02/25/21 12:15 White Blood Count 4.9 x10^3/uL (4.0-11.0) Red Blood Count 4.07 x10^6/uL (3.50-5.40) Hemoglobin 12.5 g/dL (12.0-15.5) Hematocrit 36.6 % (36.0-47.0) Mean Corpuscular Volume 90 fL (79-100) Mean Corpuscular Hemoglobin 31 pg (25-35) Mean Corpuscular Hemoglobin Concent 34 g/dL (31-37) Red Cell Distribution Width 14.1 % (11.5-14.5) Platelet Count 260 x10^3/uL (140-400) Neutrophils (%) (Auto) 63 % (31-73) Lymphocytes (%) (Auto) 26 % (24-48) Monocytes (%) (Auto) 8 % (0-9) Eosinophils (%) (Auto) 2 % (0-3) Basophils (%) (Auto) 1 % (0-3) Neutrophils # (Auto) 3.1 x10^3/uL (1.8-7.7) Lymphocytes # (Auto) 1.3 x10^3/uL (1.0-4.8) Monocytes # (Auto) 0.4 x10^3/uL (0.0-1.1) Eosinophils # (Auto) 0.1 x10^3/uL (0.0-0.7) Basophils # (Auto) 0.0 x10^3/uL (0.0-0.2) D-Dimer (Becky) 1.36 ug/mlFEU (0.00-0.50) H Sodium Level 138 mmol/L (136-145) Potassium Level 3.7 mmol/L (3.5-5.1) Chloride Level 103 mmol/L (98-107) Carbon Dioxide Level 25 mmol/L (21-32) Anion Gap 10 (6-14) Blood Urea Nitrogen 12 mg/dL (7-20) Creatinine 0.8 mg/dL (0.6-1.0) Estimated GFR (Cockcroft-Gault) 68.0 BUN/Creatinine Ratio 15 (6-20) Glucose Level 109 mg/dL (70-99) H Lactic Acid Level 1.6 mmol/L (0.4-2.0) Calcium Level 8.5 mg/dL (8.5-10.1) Phosphorus Level 3.5 mg/dL (2.6-4.7) Magnesium Level 1.9 mg/dL (1.8-2.4) Total Bilirubin 0.6 mg/dL (0.2-1.0) Aspartate Amino Transferase (AST) 18 U/L (15-37) Alanine Aminotransferase (ALT) 22 U/L (14-59) Alkaline Phosphatase 84 U/L (46-116) Troponin I Quantitative < 0.017 ng/mL (0.000-0.055) Total Protein 6.9 g/dL (6.4-8.2) Albumin 3.6 g/dL (3.4-5.0) Albumin/Globulin Ratio 1.1 (1.0-1.7) Urine Collection Type Unknown Urine Color Yellow Urine Clarity Clear Urine pH 6.5 (<5.0-8.0) Urine Specific [place] <=1.005 (1.000-1.030) Urine Protein Negative mg/dL (NEG-TRACE) Urine Glucose (UA) Negative mg/dL (NEG) Urine Ketones (Stick) Negative mg/dL (NEG) Urine Blood Negative (NEG) Urine Nitrite Negative (NEG) Urine Bilirubin Negative (NEG) Urine Urobilinogen Dipstick 0.2 mg/dL (0.2 mg/dL) Urine Leukocyte Esterase Negative (NEG) Urine RBC Occ /HPF (0-2) Urine WBC 0 /HPF (0-4) Urine Squamous Epithelial Cells Few /LPF Urine Bacteria 0 /HPF (0-FEW) Urine Mucus Slight /LPF Laboratory Tests 02/25/21 10:01 Laboratory Tests 02/25/21 10:01 ECHOCARDIOGRAM ECHOCARDIOGRAM <Conclusion> The systolic function is mildly impaired. The Ejection Fraction is 45%. There is mild global hypokinesis. Doppler and Color Flow revealed mild-moderate aortic regurgitation. Doppler and Color-flow revealed moderate mitral regurgitation. The ascending aorta is Moderately dilated to 4.6 cm. DATE: 01/07/20 1350 STRESS TEST STRESS TEST Conclusion 1. No EKG evidence of stressed induced ischemia. 2. Nuclear imaging shows no reversible ischemia or infarct. 3. Normal left ventricular systolic function with an ejection fraction of 67%. 4. Low risk Lexiscan nuclear stress test. DATE: 09/22/16 1452 ASSESSMENT/PLAN ASSESSMENT/PLAN 1. Dyspnea: negative for PE 2. Chronic diastolic CHF 3. HTN urgency 4. HLP 5. CAD; s/p PCI/stent in 2007 6. GERD, H/o duodenal ulcers and large hiatal hernia 7. Anxiety 8. Hyponatremia 9. Ascending aortic aneurysm; 4.[address] 10. COPD Recommendations Continue secondary prevention measures. ASA, statin Trend troponin. If this remains normal overnight then will arrange for outpt stress test next week Supportive care GISELLA MCNAIR APRN Feb 25, 2021 14:35
== END 2021-02-25 15:17 | disposition home or self-care (01) ==
LOC: ER 09:41
DX: R06.00 Dyspnea, unspecified (principal); R00.2 Palpitations; R42 Dizziness and giddiness; R06.02 Shortness of breath; F41.9 Anxiety disorder, unspecified; J44.9 Chronic obstructive pulmonary disease, unspecified; I11.9 Hypertensive heart disease without heart failure; E78.00 Pure hypercholesterolemia, unspecified; Z87.891 Personal history of nicotine dependence; Z90.710 Acquired absence of both cervix and uterus; Z98.890 Other specified postprocedural states; Z85.9 Personal history of malignant neoplasm, unspecified; Z88.8 Allergy status to other drugs, medicaments and biological substances; Z88.5 Allergy status to narcotic agent
CPT/HCPCS: 36415; 71045; 71275; 80053; 81001; 83605; 83735; 84100; 84484; 85025; 85379; 93005; 99285; Q9967

== ENCOUNTER 2021-03-05 01:00 | Observation (INO) | payer OTHER ==
[~2021-03-05] VITALS: Ht 165.1 cm; Wt 65.5 kg
[2021-03-05] MEDS ORDERED: IV NORMAL SALINE 1000ML BAG 1,000 ML IV SCH (01:15)
[2021-03-05 01:36] LABS: BASO % 1 % (0-3); EOS # 0.1 x10^3/uL (0.0-0.7); EOS % 2 % (0-3); HEMOGLOBIN 12.9 g/dL (12.0-15.5); LYMPH # 1.2 x10^3/uL (1.0-4.8); LYMPH % 21 % (24-48); MEAN CORPUSCULAR HEMOGLOBIN 31 pg (25-35); MEAN CORPUSCULAR HGB CONC 34 g/dL (31-37); MEAN CORPUSCULAR VOLUME 91 fL (79-100); MONO # 0.5 x10^3/uL (0.0-1.1); MONO % 9 % (0-9); NEUT # 3.7 x10^3/uL (1.8-7.7); NEUT % 67 % (31-73); PLATELET COUNT 294 x10^3/uL (140-400); RED BLOOD COUNT 4.18 x10^6/uL (3.50-5.40); RED CELL DISTRIBUTION WIDTH 13.9 % (11.5-14.5); WHITE BLOOD COUNT 5.5 x10^3/uL (4.0-11.0)
--- NOTE | 2021-03-05 01:42 | RAD ---
CT Head W/O Contrast: History: Reason: DYSARTHRIA / Spl. Instructions: / History: Comparison: none Axial images were obtained without contrast. There is mild diffuse atrophy. There is no mass effect, extraaxial fluid collections or hydrocephalu s. There is no gross bleed. Mild, patchy periventricular and subcortical white matter hypoattenuati on is seen. There is no focal loss of keller-white matter distinction to suggest acute ischemia, i.e. stroke. There is opacification of the right maxillary sinus with volume loss. Impression: No acute intracranial findings. Chronic right maxillary sinus disease. End impression These results were called to the Emergency Department and verified by read back at the time of dictat ion. PQRS Compliance Statement: One or more of the following individualized dose reduction techniques were utilized for this examinat ion: 1. Automated exposure control 2. Adjustment of the mA and/or kV according to patient size 3. Use of iterative reconstruction technique Electronically signed by: Adam Jha III, MD (03/05/2021 1:40 AM) [facility]
[2021-03-05 01:46] LABS: CALCIUM 9.4 mg/dL (8.5-10.1); GFR 52.6; POTASSIUM 4.2 mmol/L (3.5-5.1)
--- NOTE | 2021-03-05 01:47 | RAD ---
XR CHEST 1V Clinical History: Reason: HYPERTENSION / Spl. Instructions: / History: Technique: AP view of the chest was obtained at 03/05/2021 1:29 AM. Comparison: February 25, 2021. Findings: The heart is normal size. The portal vessels appear normal. This calcified granuloma in the mediastin um and mariann. Reticular opacities throughout the lungs is likely chronic pulmonary fibrosis. There is bilateral breast implants. Impression: Stable appearance of the chest. Electronically signed by: Adam Jha III, MD (03/05/2021 1:45 AM) [facility]
[2021-03-05 01:51] LABS: ALBUMIN 4.1 g/dL (3.4-5.0); ALBUMIN/GLOBULIN RATIO 1.2 (1.0-1.7); MAGNESIUM 1.9 mg/dL (1.8-2.4); TOTAL BILIRUBIN 0.6 mg/dL (0.2-1.0); TOTAL PROTEIN 7.5 g/dL (6.4-8.2)
--- NOTE | 2021-03-05 01:56 | EKG ---
[facility] [address] [place] [address] Test Date: 2021-03-05 Test Time: 01:11:47 Pat Name: KATI BOWERS Department: Room: Gender: F Manager Programs: : 1935 Requested By: AZUCENA MEADE Order Number: [id number] Reading MD: Measurements Intervals [place] Rate: 90 P: 48 AK: 144 QRS: 28 QRSD: 92 T: 30 QT: 336 QTc: 415 Interpretive Statements SINUS RHYTHM LEFT ATRIAL ABNORMALITY ABNORMAL ECG RI6.02 No previous ECG available for comparison
[2021-03-05] MEDS ORDERED: LABETALOL 20 MG/4 ML DISP.SYRIN. IVP ONE (02:15)
[2021-03-05 02:23] LABS: BILIRUBIN,URINE NEGATIVE (NEG); CLARITY,URINE CLEAR; COLOR,URINE YELLOW; NITRITE,URINE NEGATIVE (NEG); PROTEIN,URINE NEGATIVE (NEG-TRACE); UROBILINOGEN,URINE 0.2 mg/dL (0.2 mg/dL)
[2021-03-05 02:28] LABS: BACTERIA,URINE 0 /HPF (0-FEW); RBC,URINE RARE /HPF (0-2); WBC,URINE RARE /HPF (0-4)
--- NOTE | 2021-03-05 02:40 | PHYS DOC ---
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 Past Surgical History: Hysterectomy, Other Additional Past Surgical Histo: PTCA W/ STENTS X3 2007 Smoking Status: Former Smoker Alcohol Use: None Drug Use: None Adult General Chief Complaint Chief Complaint: NEURO SYMPTOMS/DEFICITS HPI HPI Patient is a 85 year old male with a possible history of coronary disease, hypertension hyperlipidemia now presenting emergency department complaint of new onset of weakness and altered mental status. Patient states that approximate 3 hours prior to arrival she noted a tingling sensation first on her right hand and then moved into her left hand. Patient states that over the last few days she is noted some bilateral lower extremity weakness which is very mild intermittent without any relieving factors. Patient also states that 3 years ago she had a new onset of difficulty with word finding stating that she was having difficulty spelling, writing and difficulty coming with words. Denies any recent fever, chills, neck pain, dizziness or vision changes Review of Systems Review of Systems Constitutional: Denies fever or chills [] Eyes: Denies change in visual acuity, redness, or eye pain [] HENT: Denies nasal congestion or sore throat [] Respiratory: Denies cough or shortness of breath [] Cardiovascular: No additional information not addressed in HPI [] GI: Denies abdominal pain, nausea, vomiting, bloody stools or diarrhea [] : Denies dysuria or hematuria [] Musculoskeletal: Denies back pain or joint pain [] Integument: Denies rash or skin lesions [] Neurologic: Denies headache, focal weakness or sensory changes [] Endocrine: Denies polyuria or polydipsia [] All other systems were reviewed and found to be within normal limits, except as documented in this note. Current Medications Current Medications Current Medications Medications (Trade) Dose Ordered Sig/Bo Start Time Stop Time Status Last Admin Dose Admin Labetalol HCl (Normodyne Iv Push) 10 mg 1X ONCE 03/05/21 02:15 03/05/21 02:17 DC 03/05/21 02:39 10 MG Sodium Chloride 1,000 ml @ 1,000 mls/hr Q1H 03/05/21 01:15 03/05/21 02:14 DC 03/05/21 01:44 1,000 MLS/HR Allergies Allergies Allergies Coded Allergies Type Severity Reaction Last Updated Verified amlodipine Allergy Intermediate 02/25/21 Yes codeine Allergy Intermediate 02/25/21 Yes lisinopril Allergy Intermediate 02/25/21 Yes Physical Exam Physical Exam Constitutional: Well developed, well nourished, no acute distress, non-toxic appearance. [] HENT: Normocephalic, atraumatic, bilateral external ears normal, oropharynx moist, no oral exudates, nose normal. [] Eyes: PERRLA, EOMI, conjunctiva normal, no discharge. [] Neck: Normal range of motion, no tenderness, supple, no stridor. [] Cardiovascular:Heart rate regular rhythm, no murmur [] Lungs & Thorax: Bilateral breath sounds clear to auscultation [] Abdomen: Bowel sounds normal, soft, no tenderness, no masses, no pulsatile masses. [] Skin: Warm, dry, no erythema, no rash. [] Back: No tenderness, no CVA tenderness. [] Extremities: No tenderness, no cyanosis, no clubbing, ROM intact, no edema. [] Neurologic: Alert and oriented X 3, normal motor function, normal sensory function, no focal deficits noted. [] Psychologic: Affect normal, judgement normal, mood normal. [] Current Patient Data Vital Signs Vital Signs Date Time Temp Pulse Resp B/P (MAP) Pulse Ox O2 Delivery O2 Flow Rate FiO2 03/05/21 02:44 76 154/69 (97) 95 Room Air 03/05/21 01:00 97.7 22 97.7 Lab Values Laboratory Tests Test 03/05/21 01:10 03/05/21 01:24 03/05/21 02:15 White Blood Count 5.5 x10^3/uL (4.0-11.0) Red Blood Count 4.18 x10^6/uL (3.50-5.40) Hemoglobin 12.9 g/dL (12.0-15.5) Hematocrit 38.0 % (36.0-47.0) Mean Corpuscular Volume 91 fL (79-100) Mean Corpuscular Hemoglobin 31 pg (25-35) Mean Corpuscular Hemoglobin Concent 34 g/dL (31-37) Red Cell Distribution Width 13.9 % (11.5-14.5) Platelet Count 294 x10^3/uL (140-400) Neutrophils (%) (Auto) 67 % (31-73) Lymphocytes (%) (Auto) 21 % (24-48) L Monocytes (%) (Auto) 9 % (0-9) Eosinophils (%) (Auto) 2 % (0-3) Basophils (%) (Auto) 1 % (0-3) Neutrophils # (Auto) 3.7 x10^3/uL (1.8-7.7) Lymphocytes # (Auto) 1.2 x10^3/uL (1.0-4.8) Monocytes # (Auto) 0.5 x10^3/uL (0.0-1.1) Eosinophils # (Auto) 0.1 x10^3/uL (0.0-0.7) Basophils # (Auto) 0.0 x10^3/uL (0.0-0.2) Sodium Level 138 mmol/L (136-145) Potassium Level 4.2 mmol/L (3.5-5.1) Chloride Level 99 mmol/L (98-107) Carbon Dioxide Level 26 mmol/L (21-32) Anion Gap 13 (6-14) Blood Urea Nitrogen 18 mg/dL (7-20) Creatinine 1.0 mg/dL (0.6-1.0) Estimated GFR (Cockcroft-Gault) 52.6 BUN/Creatinine Ratio 18 (6-20) Glucose Level 121 mg/dL (70-99) H Calcium Level 9.4 mg/dL (8.5-10.1) Magnesium Level 1.9 mg/dL (1.8-2.4) Total Bilirubin 0.6 mg/dL (0.2-1.0) Aspartate Amino Transferase (AST) 24 U/L (15-37) Alanine Aminotransferase (ALT) 22 U/L (14-59) Alkaline Phosphatase 96 U/L (46-116) Troponin I Quantitative < 0.017 ng/mL (0.000-0.055) Total Protein 7.5 g/dL (6.4-8.2) Albumin 4.1 g/dL (3.4-5.0) Albumin/Globulin Ratio 1.2 (1.0-1.7) Lipase 261 U/L (73-393) Glucose (Fingerstick) 120 mg/dL (70-99) H Urine Collection Type Unknown Urine Color Yellow Urine Clarity Clear Urine pH 7.0 (<5.0-8.0) Urine Specific [place] <=1.005 (1.000-1.030) Urine Protein Negative mg/dL (NEG-TRACE) Urine Glucose (UA) Negative mg/dL (NEG) Urine Ketones (Stick) Trace mg/dL (NEG) Urine Blood Negative (NEG) Urine Nitrite Negative (NEG) Urine Bilirubin Negative (NEG) Urine Urobilinogen Dipstick 0.2 mg/dL (0.2 mg/dL) Urine Leukocyte Esterase Negative (NEG) Urine RBC Rare /HPF (0-2) Urine WBC Rare /HPF (0-4) Urine Squamous Epithelial Cells Few /LPF Urine Bacteria 0 /HPF (0-FEW) Laboratory Tests 03/05/21 01:10 Laboratory Tests 03/05/21 01:10 EKG EKG [] Radiology/Procedures Radiology/Procedures [] Course & Med Decision Making Course & Med Decision Making Pertinent Labs and Imaging studies reviewed. (See chart for details) 85-year-old female presenting the emergency department onset of nonspecific upper extremity weakness bilateral as well as word finding. Because this occurred within 3 hours of the patient's arrival to the emergency department stroke alert was called to make sure this does not represent an acute infarct. CT scan was negative for any intracranial hemorrhage. NIH score on arrival was 0. There is concern for TIA. Anticipate need for admission with neurology evaluation. Dragon Disclaimer Dragon Disclaimer This electronic medical record was generated, in whole or in part, using a voice recognition dictation system. Departure Departure Impression: Primary Impression: TIA (transient ischemic attack) Disposition: ADMITTED INPATIENT Condition: STABLE Referrals: JOAQUIN ODOM MD (PCP) AZUCENA MEADE MD Mar 05, 2021 02:40
[2021-03-05] MEDS ORDERED: ONDANSETRON PF 4 MG/2 ML VIAL. IV PRN (03:00)
[2021-03-05 05:10] VITALS: BP 167/77
[2021-03-05 07:00] VITALS: BP 172/77
[2021-03-05] MEDS ORDERED: BISACODYL 10 MG SUPP.RECT. PR PRN (07:15)
[2021-03-05] MEDS ORDERED: ACETAMINOPHEN 325 MG TABLET. PO PRN (07:15)
[2021-03-05] MEDS ORDERED: ONDANSETRON PF 4 MG/2 ML VIAL. IVP PRN (07:15)
[2021-03-05] MEDS ORDERED: MAGNESIUM HYDROXIDE 2,400 MG/30 ML ORAL.SUSP. PO PRN (07:15)
[2021-03-05] MEDS ORDERED: MAG HYDROX/ALUMINUM HYD/SIMETH 30 ML ORAL.SUSP PO PRN (07:15)
[2021-03-05] MEDS ORDERED: CALCIUM CARBONATE 500 MG TAB.CHEW PO PRN (07:15)
[2021-03-05] MEDS ORDERED: ENOXAPARIN 40 MG/0.4 ML SYRINGE. SQ SCH (08:00)
[2021-03-05 08:03] LABS: CHOLESTEROL/HDL RATIO 2.3
[2021-03-05] MEDS ORDERED: ASPIRIN ENTERIC COATED 81 MG TABLET.DR. PO SCH (10:00)
[2021-03-05] MEDS ORDERED: ALPRAZolam 0.5 MG TABLET PO SCH (10:30)
[2021-03-05] MEDS ORDERED: ALPRAZolam 0.25 MG TABLET PO PRN (10:30)
--- NOTE | 2021-03-05 10:44 | PDOC1 ---
History and Physical Date of Admission Date of Admission DATE: 03/05/21 TIME: 10:21 Identification/Chief Complaint Chief Complaint Aphasia, paresthesia Source Source: Chart review, Patient History of Present Illness History of Present Illness Patient is an 85-year-old female with past medical history CAD, hypertension, hyperlipidemia, presents to the ED with complaints of sudden onset aphasia last night. She reports associated paresthesia to bilateral upper extremities. Her symptoms are concerning enough that she came to the ER for further evaluation. She has a history of similar symptoms about 3 years ago. Upon arrival in the ED chest x-ray and CT head showed no acute findings. I believe the time of her evaluation in the ED her symptoms began to resolve. Certainly by my evaluation her symptoms are resolving. Consultations placed to neurology. Of note, letty angel states her c engineer is Dr. Bloom and she is scheduled to have a stress test in early March. Will admit patient for further medical management. Past Medical History Cardiovascular: CAD, HTN, [place], Hyperlipidemia Pulmonary: COPD CENTRAL NERVOUS SYSTEM: Migraine GI: GERD Heme/Onc: Cancer Hepatobiliary: No pertinent hx Psych: Addictions Musculoskeletal: low back pain, Osteoarthritis Rheumatologic: No pertinent hx Infectious disease: No pertinent hx Renal/: Chronic renal insuff Endocrine: No pertinent hx Past Surgical History Past Surgical History: Cataract Removal, Hysterectomy, Other Family History Family History: Coronary Artery Disease Social History Smoke: No ALCOHOL: none Drugs: None Current Medications Current Medications Current Medications Sodium Chloride 1,000 ml @ 1,000 mls/hr Q1H IV Last administered on 03/05/21at 01:44; Start 03/05/21 at 01:15; Stop 03/05/21 at 02:14; Status DC Labetalol HCl (Normodyne Iv Push) 10 mg 1X ONCE IVP Last administered on 03/05/21at 02:39; Start 03/05/21 at 02:15; Stop 03/05/21 at 02:17; Status DC Ondansetron HCl (Zofran) 4 mg PRN Q8HRS PRN IV NAUSEA/VOMITING; Start 03/05/21 at 03:00; Stop 03/06/21 at 02:59 Ondansetron HCl (Zofran) 4 mg PRN Q6HRS PRN IVP NAUSEA/VOMITING Last administered on 03/05/21at 10:03; Start 03/05/21 at 07:15 Al Hydroxide/Mg Hydroxide (Mylanta Plus Xs) 30 ml PRN Q3HRS PRN PO HEARTBURN / GAS; Start 03/05/21 at 07:15 Calcium Carbonate/ Glycine (Tums) 500 mg PRN Q3HRS PRN PO UPSET STOMACH Last administered on 03/05/21at 10:03; Start 03/05/21 at 07:15 Acetaminophen (Tylenol) 650 mg PRN Q6HRS PRN PO Headaches, Temp > 101.5F; Start 03/05/21 at 07:15 Magnesium Hydroxide (Milk Of Magnesia) 2,400 mg PRN Q12HR PRN PO CONSTIPATION; Start 03/05/21 at 07:15 Bisacodyl (Dulcolax Supp) 10 mg PRN DAILY PRN CO CONSTIPATION; Start 03/05/21 at 07:15 Enoxaparin Sodium (Lovenox 40mg Syringe) 40 mg Q24H SQ Last administered on 03/05/21at 10:04; Start 03/05/21 at 08:00 Active Scripts Active Prednisone 50 Mg Tablet 1 Tab PO DAILY 7 Days Mag-Al Plus Xs Suspension (Mag Hydrox/Al Hydrox/Simeth) 30 Ml Oral.susp 30 Ml PO PRN Q4HRS PRN 10 Days Proair Hfa Inhaler (Albuterol Sulfate) 8.5 Gm Hfa.aer.ad 2 Puff INH Q4HRS PRN Aspirin Ec (Aspirin) 81 Mg Tablet.dr 81 Mg PO DAILYWBKFT Reported Alprazolam 0.25 Mg Tablet 0.25 Mg PO PRN DAILY PRN Clarisa Allergy (Fexofenadine Hcl) 180 Mg Tablet 180 Mg PO DAILY Flonase Allergy Relief (Fluticasone Propionate) 9.9 Ml [place].susp 2 Sprays NS DAILY Biotin 1 Mg Capsule 1 Tab PO DAILY Ranitidine Hcl 150 Mg Tablet 150 Mg PO BID Magnesium (Magnesium Oxide) 400 Mg Capsule 1 Cap PO BID Furosemide 20 Mg Tablet 1 Tab PO DAILY Co Q-10 100 Mg Softgel (Ubidecarenone/Vit E Acetate) 1 Each Capsule 1 Each PO B Complex (Vitamin B Complex) 1 Each Tablet 1 Each PO Atorvastatin Calcium 20 Mg Tablet 1 Tab PO QHS Alprazolam 0.5 Mg Tablet 1 Tab PO BID Losartan Potassium 100 Mg Tablet 100 Mg PO DAILY Allergies Allergies: Coded Allergies: amlodipine (Verified Allergy, Intermediate, 02/25/21) palpitations, swelling in legs codeine (Verified Allergy, Intermediate, 02/25/21) lisinopril (Verified Allergy, Intermediate, 02/25/21) cough ROS Review of System GENERAL: No history of weight change, weakness or fevers. SKIN: No bruising, hair changes or rashes. EYES: No blurred, double or loss of vision. NOSE AND THROAT: No history of nosebleeds, hoarseness or sore throat. HEART: Denies chest pain, denies palpitations. LUNGS: Denies cough, hemoptysis, wheezing or shortness of breath. GASTROINTESTINAL: Denies nausea, vomiting, abdominal pain. GENITOURINARY: Denies dysuria, frequency, urgency, hematuria. NEUROLOGIC: Aphasia. Bilateral upper extremity paresthesia. PSYCHIATRIC: Denies anxiety, denies depression. ENDOCRINE: No history of heat or cold intolerance, polyuria or polydipsia. EXTREMITIES: Denies muscle weakness, joint pain, pain on walking or stiffness. Physical Exam Physical Exam General: Alert, Oriented X3, Cooperative, No acute distress HEENT: PERRLA, EOMI Lungs: Clear to auscultation, Normal air movement Heart: RRR, no murmurs Cardiovascular: S1, S2 Abdomen: Normal bowel sounds, Soft, No tenderness Extremities: No clubbing, No cyanosis Skin: No rashes, No significant lesion Neuro: Normal speech, Normal tone, Sensation intact Psych/Mental Status: Mental status NL, Mood NL Vitals Vitals Vital Signs Date Time Temp Pulse Resp B/P (MAP) Pulse Ox O2 Delivery O2 Flow Rate FiO2 03/05/21 07:00 98.0 87 19 172/77 (108) 95 Room Air 98.0 Labs Labs Laboratory Tests Test 03/05/21 01:10 03/05/21 01:24 03/05/21 02:15 03/05/21 05:00 White Blood Count 5.5 x10^3/uL (4.0-11.0) Red Blood Count 4.18 x10^6/uL (3.50-5.40) Hemoglobin 12.9 g/dL (12.0-15.5) Hematocrit 38.0 % (36.0-47.0) Mean Corpuscular Volume 91 fL (79-100) Mean Corpuscular Hemoglobin 31 pg (25-35) Mean Corpuscular Hemoglobin Concent 34 g/dL (31-37) Red Cell Distribution Width 13.9 % (11.5-14.5) Platelet Count 294 x10^3/uL (140-400) Neutrophils (%) (Auto) 67 % (31-73) Lymphocytes (%) (Auto) 21 % (24-48) Monocytes (%) (Auto) 9 % (0-9) Eosinophils (%) (Auto) 2 % (0-3) Basophils (%) (Auto) 1 % (0-3) Neutrophils # (Auto) 3.7 x10^3/uL (1.8-7.7) Lymphocytes # (Auto) 1.2 x10^3/uL (1.0-4.8) Monocytes # (Auto) 0.5 x10^3/uL (0.0-1.1) Eosinophils # (Auto) 0.1 x10^3/uL (0.0-0.7) Basophils # (Auto) 0.0 x10^3/uL (0.0-0.2) Sodium Level 138 mmol/L (136-145) Potassium Level 4.2 mmol/L (3.5-5.1) Chloride Level 99 mmol/L (98-107) Carbon Dioxide Level 26 mmol/L (21-32) Anion Gap 13 (6-14) Blood Urea Nitrogen 18 mg/dL (7-20) Creatinine 1.0 mg/dL (0.6-1.0) Estimated GFR (Cockcroft-Gault) 52.6 BUN/Creatinine Ratio 18 (6-20) Glucose Level 121 mg/dL (70-99) Calcium Level 9.4 mg/dL (8.5-10.1) Magnesium Level 1.9 mg/dL (1.8-2.4) Total Bilirubin 0.6 mg/dL (0.2-1.0) Aspartate Amino Transf (AST/SGOT) 24 U/L (15-37) Alanine Aminotransferase (ALT/SGPT) 22 U/L (14-59) Alkaline Phosphatase 96 U/L (46-116) Troponin I Quantitative < 0.017 ng/mL (0.000-0.055) 0.084 ng/mL (0.000-0.055) Total Protein 7.5 g/dL (6.4-8.2) Albumin 4.1 g/dL (3.4-5.0) Albumin/Globulin Ratio 1.2 (1.0-1.7) Lipase 261 U/L (73-393) Glucose (Fingerstick) 120 mg/dL (70-99) Urine Collection Type Unknown Urine Color Yellow Urine Clarity Clear Urine pH 7.0 (<5.0-8.0) Urine Specific [place] <=1.005 (1.000-1.030) Urine Protein Negative mg/dL (NEG-TRACE) Urine Glucose (UA) Negative mg/dL (NEG) Urine Ketones (Stick) Trace mg/dL (NEG) Urine Blood Negative (NEG) Urine Nitrite Negative (NEG) Urine Bilirubin Negative (NEG) Urine Urobilinogen Dipstick 0.2 mg/dL (0.2 mg/dL) Urine Leukocyte Esterase Negative (NEG) Urine RBC Rare /HPF (0-2) Urine WBC Rare /HPF (0-4) Urine Squamous Epithelial Cells Few /LPF Urine Bacteria 0 /HPF (0-FEW) Triglycerides Level 53 mg/dL (0-150) Cholesterol Level 236 mg/dL (0-200) LDL Cholesterol, Calculated 122 mg/dL (0-100) VLDL Cholesterol, Calculated 11 mg/dL (0-40) Non-HDL Cholesterol Calculated 133 mg/dL (0-129) HDL Cholesterol 103 mg/dL (40-60) Cholesterol/HDL Ratio 2.3 Test 03/05/21 07:40 Troponin I Quantitative 0.069 ng/mL (0.000-0.055) Laboratory Tests Test 03/05/21 01:10 03/05/21 01:24 03/05/21 02:15 03/05/21 05:00 White Blood Count 5.5 x10^3/uL (4.0-11.0) Red Blood Count 4.18 x10^6/uL (3.50-5.40) Hemoglobin 12.9 g/dL (12.0-15.5) Hematocrit 38.0 % (36.0-47.0) Mean Corpuscular Volume 91 fL (79-100) Mean Corpuscular Hemoglobin 31 pg (25-35) Mean Corpuscular Hemoglobin Concent 34 g/dL (31-37) Red Cell Distribution Width 13.9 % (11.5-14.5) Platelet Count 294 x10^3/uL (140-400) Neutrophils (%) (Auto) 67 % (31-73) Lymphocytes (%) (Auto) 21 % (24-48) Monocytes (%) (Auto) 9 % (0-9) Eosinophils (%) (Auto) 2 % (0-3) Basophils (%) (Auto) 1 % (0-3) Neutrophils # (Auto) 3.7 x10^3/uL (1.8-7.7) Lymphocytes # (Auto) 1.2 x10^3/uL (1.0-4.8) Monocytes # (Auto) 0.5 x10^3/uL (0.0-1.1) Eosinophils # (Auto) 0.1 x10^3/uL (0.0-0.7) Basophils # (Auto) 0.0 x10^3/uL (0.0-0.2) Sodium Level 138 mmol/L (136-145) Potassium Level 4.2 mmol/L (3.5-5.1) Chloride Level 99 mmol/L (98-107) Carbon Dioxide Level 26 mmol/L (21-32) Anion Gap 13 (6-14) Blood Urea Nitrogen 18 mg/dL (7-20) Creatinine 1.0 mg/dL (0.6-1.0) Estimated GFR (Cockcroft-Gault) 52.6 BUN/Creatinine Ratio 18 (6-20) Glucose Level 121 mg/dL (70-99) Calcium Level 9.4 mg/dL (8.5-10.1) Magnesium Level 1.9 mg/dL (1.8-2.4) Total Bilirubin 0.6 mg/dL (0.2-1.0) Aspartate Amino Transf (AST/SGOT) 24 U/L (15-37) Alanine Aminotransferase (ALT/SGPT) 22 U/L (14-59) Alkaline Phosphatase 96 U/L (46-116) Troponin I Quantitative < 0.017 ng/mL (0.000-0.055) 0.084 ng/mL (0.000-0.055) Total Protein 7.5 g/dL (6.4-8.2) Albumin 4.1 g/dL (3.4-5.0) Albumin/Globulin Ratio 1.2 (1.0-1.7) Lipase 261 U/L (73-393) Glucose (Fingerstick) 120 mg/dL (70-99) Urine Collection Type Unknown Urine Color Yellow Urine Clarity Clear Urine pH 7.0 (<5.0-8.0) Urine Specific [place] <=1.005 (1.000-1.030) Urine Protein Negative mg/dL (NEG-TRACE) Urine Glucose (UA) Negative mg/dL (NEG) Urine Ketones (Stick) Trace mg/dL (NEG) Urine Blood Negative (NEG) Urine Nitrite Negative (NEG) Urine Bilirubin Negative (NEG) Urine Urobilinogen Dipstick 0.2 mg/dL (0.2 mg/dL) Urine Leukocyte Esterase Negative (NEG) Urine RBC Rare /HPF (0-2) Urine WBC Rare /HPF (0-4) Urine Squamous Epithelial Cells Few /LPF Urine Bacteria 0 /HPF (0-FEW) Triglycerides Level 53 mg/dL (0-150) Cholesterol Level 236 mg/dL (0-200) LDL Cholesterol, Calculated 122 mg/dL (0-100) VLDL Cholesterol, Calculated 11 mg/dL (0-40) Non-HDL Cholesterol Calculated 133 mg/dL (0-129) HDL Cholesterol 103 mg/dL (40-60) Cholesterol/HDL Ratio 2.3 Test 03/05/21 07:40 Troponin I Quantitative 0.069 ng/mL (0.000-0.055) Images Images PORTABLE CHEST 1V XR CHEST 1V Clinical History: Reason: HYPERTENSION / Spl. Instructions: / History: Technique: AP view of the chest was obtained at 03/05/2021 1:29 AM. Comparison: February 25, 2021. Findings: The heart is normal size. The portal vessels appear normal. This calcified granuloma in the mediastinum and mariann. Reticular opacities throughout the lungs is likely chronic pulmonary fibrosis. There is bilateral breast implants. Impression: Stable appearance of the chest. CT CODE STROKE HEAD WO CT Head W/O Contrast: History: Reason: DYSARTHRIA / Spl. Instructions: / History: Comparison: none Axial images were obtained without contrast. There is mild diffuse atrophy. There is no mass effect, extraaxial fluid collections or hydrocephalus. There is no gross bleed. Mild, patchy periventricular and subcortical white matter hypoattenuation is seen. There is no focal loss of keller-white matter distinction to suggest acute ischemia, i.e. stroke. There is opacification of the right maxillary sinus with volume loss. Impression: No acute intracranial findings. Chronic right maxillary sinus disease. VTE Prophylaxis Ordered VTE Prophylaxis Devices: No VTE Pharmacological Prophylaxi: Yes Assessment/Plan Assessment/Plan TIA Hyperlipidemia CAD COPD Chronic maxillary sinusitis HLD HTN Plan: Consultation placed to neurology MRI and carotid ultrasound pending Resume home medications FEN - Cardiac diet PPX - Lovenox FULL CODE Dispo - inpatient for above; patient names daughter as surrogate decision-maker. Justifications for Admission Other Justification INÉS WEINBERG MD Mar 05, 2021 10:44
[2021-03-05 11:00] VITALS: BP 139/76
[2021-03-05] MEDS ORDERED: LOSARTAN POTASSIUM 50 MG TABLET. PO SCH (11:00)
[2021-03-05] MEDS ORDERED: FUROSEMIDE 20 MG TABLET PO SCH (11:00)
--- NOTE | 2021-03-05 11:22 | RAD ---
US DPLX CAROTID BILAT History: Reason: TIA / Spl. Instructions: / History: Multiple grayscale, color, and duplex spectral analysis waveform sonographic images were acquired of the carotid, subclavian, and vertebral arteries. Comparison: None Findings: RIGHT SIDE: Peak systolic flow velocity of the distal CCA is 72 cm/sec. Peak systolic flow velocity of the ICA is 83 cm/sec. The ICA/CCA ratio is 1.2. Peak end diastolic flow velocity of the ICA is 16 cm/sec. The peak systolic velocity of the ECA is 90 cm/sec. Atherosclerotic plaque formation is identified. LEFT SIDE: Peak systolic flow velocity of the distal CCA is 85 cm/sec. Peak systolic flow velocity of the ICA is 16 cm/sec. The ICA/CCA ratio is 0.7. Peak end diastolic flow velocity of the ICA is 21 cm/sec. Peak systolic flow velocity of the ECA is 90 cm/sec. Atherosclerotic plaque formation is identified. Vertebral arteries: Bilateral vertebral arteries demonstrate antegrade flow. Impression: Atherosclerosis of the cervical ICAs with velocities consistent with less than 50 percent stenosis. PQRS Compliance Statement - Stenosis calculations for carotid ultrasound studies are derived from shun idated velocity criteria which are known to correlate with the NASCET methodology. Electronically signed by: Luis Alberto Gonzalez MD (03/05/2021 11:20 AM) [id number]
--- NOTE | 2021-03-05 12:00 | PDOC2 ---
NEUROLOGY CONSULT Date of Service DOS: DATE: 03/05/21 TIME: 11:49 History of Present Illness History of Present Illness The patient is an 85-year-old right-handed female who woke up early this morning with generalized weakness and difficulty speaking. She had a tingling sensation first in the right hand and then it that moved into her left hand. She has also noticed some lower extremity weakness. Symptoms were improving when she came to the emergency department. Blood pressure was elevated on admission. I last saw her 4 years ago. She was anxious and felt that she could not get her words out. I also saw her in 2009 for stroke-like symptoms which I felt were migraine. Indeed, she has chronic headaches currently without photo phonophobia or nausea. Her leg pain is chronic as well. I discussed the case with Dr. Schmidt early this morning and we agreed that she did not require alteplase with the improving symptoms as well as the fact that problems were bilateral and more likely related to hypertensive encephalopathy. She is feeling even better this morning Past Medical History Cardiovascular: CAD, CHF, HTN, [place], Hyperlipidemia Pulmonary: COPD CENTRAL NERVOUS SYSTEM: Migraine (stroke symptoms related to migraine with negative workup in 2009 & 2016), Other (Aneurysm) GI: Constipation, GERD Psych: Anxiety, Depression Musculoskeletal: low back pain, Osteoarthritis Renal/: Chronic renal insuff, Other (Uterine cancer) Dermatology: Other (Skin cancer) Past Surgical History Past Surgical History: Cataract Removal, Hysterectomy, Other (PTCA W/ STENTS X3 2007, basal cell carcinoma, breast implant) Family History Family History: CAD Social History Social History She is , former smoker. She rarely uses alcohol. Current Medications Current Medications Current Medications Sodium Chloride 1,000 ml @ 1,000 mls/hr Q1H IV Last administered on 03/05/21at 01:44; Start 03/05/21 at 01:15; Stop 03/05/21 at 02:14; Status DC Labetalol HCl (Normodyne Iv Push) 10 mg 1X ONCE IVP Last administered on 03/05/21at 02:39; Start 03/05/21 at 02:15; Stop 03/05/21 at 02:17; Status DC Ondansetron HCl (Zofran) 4 mg PRN Q8HRS PRN IV NAUSEA/VOMITING; Start 03/05/21 at 03:00; Stop 03/06/21 at 02:59 Ondansetron HCl (Zofran) 4 mg PRN Q6HRS PRN IVP NAUSEA/VOMITING Last administered on 03/05/21at 10:03; Start 03/05/21 at 07:15 Al Hydroxide/Mg Hydroxide (Mylanta Plus Xs) 30 ml PRN Q3HRS PRN PO HEARTBURN / GAS; Start 03/05/21 at 07:15 Calcium Carbonate/ Glycine (Tums) 500 mg PRN Q3HRS PRN PO UPSET STOMACH Last administered on 03/05/21at 10:03; Start 03/05/21 at 07:15 Acetaminophen (Tylenol) 650 mg PRN Q6HRS PRN PO Headaches, Temp > 101.5F; Start 03/05/21 at 07:15 Magnesium Hydroxide (Milk Of Magnesia) 2,400 mg PRN Q12HR PRN PO CONSTIPATION; Start 03/05/21 at 07:15 Bisacodyl (Dulcolax Supp) 10 mg PRN DAILY PRN [place] CONSTIPATION; Start 03/05/21 at 07:15 Enoxaparin Sodium (Lovenox 40mg Syringe) 40 mg Q24H SQ Last administered on 03/05/21at 10:04; Start 03/05/21 at 08:00 Alprazolam (Xanax) 0.25 mg PRN DAILY PRN PO ANXIETY / AGITATION; Start 03/05/21 at 10:30 Alprazolam (Xanax) 0.5 mg BID PO Last administered on 03/05/21at 11:06; Start 03/05/21 at 10:30 Aspirin (Ecotrin) 81 mg DAILYWBKFT PO Last administered on 03/05/21at 11:06; Start 03/05/21 at 10:00 Furosemide (Lasix) 20 mg DAILY PO Last administered on 03/05/21at 11:06; Start 03/05/21 at 11:00 Losartan Potassium (Cozaar) 100 mg DAILY PO Last administered on 03/05/21at 11:06; Start 03/05/21 at 11:00 Atorvastatin Calcium (Lipitor) 20 mg QHS PO ; Start 03/05/21 at 21:00 Active Scripts Active Prednisone 50 Mg Tablet 1 Tab PO DAILY 7 Days Mag-Al Plus Xs Suspension (Mag Hydrox/Al Hydrox/Simeth) 30 Ml Oral.susp 30 Ml PO PRN Q4HRS PRN 10 Days Proair Hfa Inhaler (Albuterol Sulfate) 8.5 Gm Hfa.aer.ad 2 Puff INH Q4HRS PRN Aspirin Ec (Aspirin) 81 Mg Tablet.dr 81 Mg PO DAILYWBKFT Reported Alprazolam 0.25 Mg Tablet 0.25 Mg PO PRN DAILY PRN Clarisa Allergy (Fexofenadine Hcl) 180 Mg Tablet 180 Mg PO DAILY Flonase Allergy Relief (Fluticasone Propionate) 9.9 Ml [place].susp 2 Sprays NS DAILY Biotin 1 Mg Capsule 1 Tab PO DAILY Ranitidine Hcl 150 Mg Tablet 150 Mg PO BID Magnesium (Magnesium Oxide) 400 Mg Capsule 1 Cap PO BID Furosemide 20 Mg Tablet 1 Tab PO DAILY Co Q-10 100 Mg Softgel (Ubidecarenone/Vit E Acetate) 1 Each Capsule 1 Each PO B Complex (Vitamin B Complex) 1 Each Tablet 1 Each PO Atorvastatin Calcium 20 Mg Tablet 1 Tab PO QHS Alprazolam 0.5 Mg Tablet 1 Tab PO BID Losartan Potassium 100 Mg Tablet 100 Mg PO DAILY Allergies Allergies: Coded Allergies: amlodipine (Verified Allergy, Intermediate, 02/25/21) palpitations, swelling in legs codeine (Verified Allergy, Intermediate, 02/25/21) lisinopril (Verified Allergy, Intermediate, 02/25/21) cough ROS Review of System Negative for fever, chills, weight loss, shortness of breath, chest pain, indigestion, hematochezia, melena, and dysuria. Full 14-point review of systems is negative. Physical Exam Physical Examination General: Well-developed, well-nourished white female in no acute distress HEENT: Normocephalic andatraumatic. Temporal arteriespulsatile and nontender. Neck: Supple without bruit, no meningismus Musculoskeletal: Stability:see neurologic. Gait exam:see neurologic. Tone:see neurologic.Strength:see neurologic. Neurological: Mental Status:intact, orientation, memory, attention span/concentration, language, fund of knowledge normal. Cranial Nerves:Pupils equal and reactive to light, extraocular movements areintact, visual mason are full to confrontation. Facial sensation is normal. There is no facial asymmetry. Vestibulo-ocular reflex is intact. Palate elevates and tongue protrudes in midline. All other cranial related problems are negative except as mentioned before.Reflexes:2+ and symmetric with flexor plantar responses. Motor:5/5 strength with normal tone and bulk. Coordination:Finger-nose finger and aqai-iy-doke testing are normal. Rapid alternating movements and fine finger movements are intact. Gait:not tested. Sensory:Normal pinprick, vibration, l ight touch, proprioception. Vitals VITALS Vital Signs Date Time Temp Pulse Resp B/P (MAP) Pulse Ox O2 Delivery O2 Flow Rate FiO2 03/05/21 11:06 87 172/77 03/05/21 11:00 98.0 19 92 Room Air 98.0 Labs Labs Laboratory Tests Test 03/05/21 01:10 03/05/21 01:24 03/05/21 02:15 03/05/21 05:00 White Blood Count 5.5 x10^3/uL (4.0-11.0) Red Blood Count 4.18 x10^6/uL (3.50-5.40) Hemoglobin 12.9 g/dL (12.0-15.5) Hematocrit 38.0 % (36.0-47.0) Mean Corpuscular Volume 91 fL (79-100) Mean Corpuscular Hemoglobin 31 pg (25-35) Mean Corpuscular Hemoglobin Concent 34 g/dL (31-37) Red Cell Distribution Width 13.9 % (11.5-14.5) Platelet Count 294 x10^3/uL (140-400) Neutrophils (%) (Auto) 67 % (31-73) Lymphocytes (%) (Auto) 21 % (24-48) Monocytes (%) (Auto) 9 % (0-9) Eosinophils (%) (Auto) 2 % (0-3) Basophils (%) (Auto) 1 % (0-3) Neutrophils # (Auto) 3.7 x10^3/uL (1.8-7.7) Lymphocytes # (Auto) 1.2 x10^3/uL (1.0-4.8) Monocytes # (Auto) 0.5 x10^3/uL (0.0-1.1) Eosinophils # (Auto) 0.1 x10^3/uL (0.0-0.7) Basophils # (Auto) 0.0 x10^3/uL (0.0-0.2) Sodium Level 138 mmol/L (136-145) Potassium Level 4.2 mmol/L (3.5-5.1) Chloride Level 99 mmol/L (98-107) Carbon Dioxide Level 26 mmol/L (21-32) Anion Gap 13 (6-14) Blood Urea Nitrogen 18 mg/dL (7-20) Creatinine 1.0 mg/dL (0.6-1.0) Estimated GFR (Cockcroft-Gault) 52.6 BUN/Creatinine Ratio 18 (6-20) Glucose Level 121 mg/dL (70-99) Calcium Level 9.4 mg/dL (8.5-10.1) Magnesium Level 1.9 mg/dL (1.8-2.4) Total Bilirubin 0.6 mg/dL (0.2-1.0) Aspartate Amino Transf (AST/SGOT) 24 U/L (15-37) Alanine Aminotransferase (ALT/SGPT) 22 U/L (14-59) Alkaline Phosphatase 96 U/L (46-116) Troponin I Quantitative < 0.017 ng/mL (0.000-0.055) 0.084 ng/mL (0.000-0.055) Total Protein 7.5 g/dL (6.4-8.2) Albumin 4.1 g/dL (3.4-5.0) Albumin/Globulin Ratio 1.2 (1.0-1.7) Lipase 261 U/L (73-393) Glucose (Fingerstick) 120 mg/dL (70-99) Urine Collection Type Unknown Urine Color Yellow Urine Clarity Clear Urine pH 7.0 (<5.0-8.0) Urine Specific [place] <=1.005 (1.000-1.030) Urine Protein Negative mg/dL (NEG-TRACE) Urine Glucose (UA) Negative mg/dL (NEG) Urine Ketones (Stick) Trace mg/dL (NEG) Urine Blood Negative (NEG) Urine Nitrite Negative (NEG) Urine Bilirubin Negative (NEG) Urine Urobilinogen Dipstick 0.2 mg/dL (0.2 mg/dL) Urine Leukocyte Esterase Negative (NEG) Urine RBC Rare /HPF (0-2) Urine WBC Rare /HPF (0-4) Urine Squamous Epithelial Cells Few /LPF Urine Bacteria 0 /HPF (0-FEW) Triglycerides Level 53 mg/dL (0-150) Cholesterol Level 236 mg/dL (0-200) LDL Cholesterol, Calculated 122 mg/dL (0-100) VLDL Cholesterol, Calculated 11 mg/dL (0-40) Non-HDL Cholesterol Calculated 133 mg/dL (0-129) HDL Cholesterol 103 mg/dL (40-60) Cholesterol/HDL Ratio 2.3 Test 03/05/21 07:40 Troponin I Quantitative 0.069 ng/mL (0.000-0.055) Laboratory Tests Test 03/05/21 01:10 03/05/21 01:24 03/05/21 02:15 03/05/21 05:00 White Blood Count 5.5 x10^3/uL (4.0-11.0) Red Blood Count 4.18 x10^6/uL (3.50-5.40) Hemoglobin 12.9 g/dL (12.0-15.5) Hematocrit 38.0 % (36.0-47.0) Mean Corpuscular Volume 91 fL (79-100) Mean Corpuscular Hemoglobin 31 pg (25-35) Mean Corpuscular Hemoglobin Concent 34 g/dL (31-37) Red Cell Distribution Width 13.9 % (11.5-14.5) Platelet Count 294 x10^3/uL (140-400) Neutrophils (%) (Auto) 67 % (31-73) Lymphocytes (%) (Auto) 21 % (24-48) Monocytes (%) (Auto) 9 % (0-9) Eosinophils (%) (Auto) 2 % (0-3) Basophils (%) (Auto) 1 % (0-3) Neutrophils # (Auto) 3.7 x10^3/uL (1.8-7.7) Lymphocytes # (Auto) 1.2 x10^3/uL (1.0-4.8) Monocytes # (Auto) 0.5 x10^3/uL (0.0-1.1) Eosinophils # (Auto) 0.1 x10^3/uL (0.0-0.7) Basophils # (Auto) 0.0 x10^3/uL (0.0-0.2) Sodium Level 138 mmol/L (136-145) Potassium Level 4.2 mmol/L (3.5-5.1) Chloride Level 99 mmol/L (98-107) Carbon Dioxide Level 26 mmol/L (21-32) Anion Gap 13 (6-14) Blood Urea Nitrogen 18 mg/dL (7-20) Creatinine 1.0 mg/dL (0.6-1.0) Estimated GFR (Cockcroft-Gault) 52.6 BUN/Creatinine Ratio 18 (6-20) Glucose Level 121 mg/dL (70-99) Calcium Level 9.4 mg/dL (8.5-10.1) Magnesium Level 1.9 mg/dL (1.8-2.4) Total Bilirubin 0.6 mg/dL (0.2-1.0) Aspartate Amino Transf (AST/SGOT) 24 U/L (15-37) Alanine Aminotransferase (ALT/SGPT) 22 U/L (14-59) Alkaline Phosphatase 96 U/L (46-116) Troponin I Quantitative < 0.017 ng/mL (0.000-0.055) 0.084 ng/mL (0.000-0.055) Total Protein 7.5 g/dL (6.4-8.2) Albumin 4.1 g/dL (3.4-5.0) Albumin/Globulin Ratio 1.2 (1.0-1.7) Lipase 261 U/L (73-393) Glucose (Fingerstick) 120 mg/dL (70-99) Urine Collection Type Unknown Urine Color Yellow Urine Clarity Clear Urine pH 7.0 (<5.0-8.0) Urine Specific [place] <=1.005 (1.000-1.030) Urine Protein Negative mg/dL (NEG-TRACE) Urine Glucose (UA) Negative mg/dL (NEG) Urine Ketones (Stick) Trace mg/dL (NEG) Urine Blood Negative (NEG) Urine Nitrite Negative (NEG) Urine Bilirubin Negative (NEG) Urine Urobilinogen Dipstick 0.2 mg/dL (0.2 mg/dL) Urine Leukocyte Esterase Negative (NEG) Urine RBC Rare /HPF (0-2) Urine WBC Rare /HPF (0-4) Urine Squamous Epithelial Cells Few /LPF Urine Bacteria 0 /HPF (0-FEW) Triglycerides Level 53 mg/dL (0-150) Cholesterol Level 236 mg/dL (0-200) LDL Cholesterol, Calculated 122 mg/dL (0-100) VLDL Cholesterol, Calculated 11 mg/dL (0-40) Non-HDL Cholesterol Calculated 133 mg/dL (0-129) HDL Cholesterol 103 mg/dL (40-60) Cholesterol/HDL Ratio 2.3 Test 03/05/21 07:40 Troponin I Quantitative 0.069 ng/mL (0.000-0.055) Images Images CT Head W/O Contrast: History: Reason: DYSARTHRIA / Spl. Instructions: / History: Comparison: none Axial images were obtained without contrast. There is mild diffuse atrophy. There is no mass effect, extraaxial fluid collections or hydrocephalus. There is no gross bleed. Mild, patchy periventricular and subcortical white matter hypoattenuation is seen. There is no focal loss of keller-white matter distinction to suggest acute ischemia, i.e. stroke. There is opacification of the right maxillary sinus with volume loss. Impression: No acute intracranial findings. Chronic right maxillary sinus disease. End impression These results were called to the Emergency Department and verified by read back at the time of dictation. DOPPLER CAROTID BILAT US DPLX CAROTID BILAT History: Reason: TIA / Spl. Instructions: / History: Multiple grayscale, color, and duplex spectral analysis waveform sonographic images were acquired of the carotid, subclavian, and vertebral arteries. Comparison: None Findings: RIGHT SIDE: Peak systolic flow velocity of the distal CCA is 72 cm/sec. Peak systolic flow velocity of the ICA is 83 cm/sec. The ICA/CCA ratio is 1.2. Peak end diastolic flow velocity of the ICA is 16 cm/sec. The peak systolic velocity of the ECA is 90 cm/sec. Atherosclerotic plaque formation is identified. LEFT SIDE: Peak systolic flow velocity of the distal CCA is 85 cm/sec. Peak systolic flow velocity of the ICA is 16 cm/sec. The ICA/CCA ratio is 0.7. Peak end diastolic flow velocity of the ICA is 21 cm/sec. Peak systolic flow velocity of the ECA is 90 cm/sec. Atherosclerotic plaque formation is identified. Vertebral arteries: Bilateral vertebral arteries demonstrate antegrade flow. Impression: Atherosclerosis of the cervical ICAs with velocities consistent with less than 50 percent stenosis. Assessment/Plan Assessment/Plan Impression: Bilateral symptoms, nonlocalizing symptoms, including bilateral numbness and difficulty speaking, most likely a case of hypertensive encephalopathy as blood pressure was 210/89 upon admission. She has had full stroke work-ups twice in the past. There may be a component of migraine-related stroke symptoms as well as anxiety Chronic headache following basal cell excision, no evidence of intracranial problem. History of migraine-related stroke symptoms Recommendations: Brain MRI Carotid Doppers, done Aspirin Statin Discharge when blood pressure stable Follow-up with neurology as needed. Thank you for letting me help with the patient's care. BECKY SAHA MD Mar 05, 2021 12:00
--- NOTE | 2021-03-05 13:17 | RAD ---
EXAM: Brain MRI without contrast. HISTORY: Transient ischemic attack. TECHNIQUE: Multiplanar, multisequence magnetic resonance imaging of the brain was performed without c ontrast. COMPARISON: CT dated 03/05/2021. FINDINGS: There is no restricted diffusion to suggest acute or subacute infarction. There is no susce ptibility effect to suggest hemorrhage. There is no mass effect or midline shift. There is no hydroce phalus. There are multiple scattered focal areas of signal change throughout the cerebral white matter, a non specific finding which is most commonly due to chronic small vessel disease. There is a focus of ence phalomalacia within the right cerebellum, likely due to chronic infarction. There is a suspected smal l chronic lacunar infarct at the junction of the right basal ganglia and thalamus. There is evidence of lens surgery. There is complete opacification of a small right maxillary sinus l ikely due to the sequela of chronic sinusitis/silent sinus syndrome. There is a chronic left lamina p apyracea fracture. The mastoid air cells are clear. There are normal flow voids within the cerebral v essels. There is no suspicious calvarial lesion. IMPRESSION: 1. No acute intracranial finding. 2. Bilateral cerebral white matter changes, likely due to chronic small vessel disease. 3. Suspected small chronic lacunar infarct at the junction of the right basal ganglia and thalamus. Electronically signed by: Regina Mandujano MD (03/05/2021 1:15 PM) [facility]
[2021-03-05 15:00] VITALS: BP 107/66
--- NOTE | 2021-03-05 16:33 | PDOC3 ---
Discharge Summary Visit Information Date of Admission: Mar 05, 2021 Date of Discharge: Mar 05, 2021 Brief Hospital Course Allergies Allergies Coded Allergies Type Severity Reaction Last Updated Verified amlodipine Allergy Intermediate 02/25/21 Yes codeine Allergy Intermediate 02/25/21 Yes lisinopril Allergy Intermediate 02/25/21 Yes Vital Signs Vital Signs Date Time Temp Pulse Resp B/P (MAP) Pulse Ox O2 Delivery O2 Flow Rate FiO2 03/05/21 15:00 97.7 70 19 107/66 (80) 92 Nasal Cannula 97.7 Lab Results Laboratory Tests Test 03/05/21 01:10 03/05/21 01:24 03/05/21 02:15 03/05/21 05:00 White Blood Count 5.5 x10^3/uL (4.0-11.0) Red Blood Count 4.18 x10^6/uL (3.50-5.40) Hemoglobin 12.9 g/dL (12.0-15.5) Hematocrit 38.0 % (36.0-47.0) Mean Corpuscular Volume 91 fL (79-100) Mean Corpuscular Hemoglobin 31 pg (25-35) Mean Corpuscular Hemoglobin Concent 34 g/dL (31-37) Red Cell Distribution Width 13.9 % (11.5-14.5) Platelet Count 294 x10^3/uL (140-400) Neutrophils (%) (Auto) 67 % (31-73) Lymphocytes (%) (Auto) 21 % (24-48) Monocytes (%) (Auto) 9 % (0-9) Eosinophils (%) (Auto) 2 % (0-3) Basophils (%) (Auto) 1 % (0-3) Neutrophils # (Auto) 3.7 x10^3/uL (1.8-7.7) Lymphocytes # (Auto) 1.2 x10^3/uL (1.0-4.8) Monocytes # (Auto) 0.5 x10^3/uL (0.0-1.1) Eosinophils # (Auto) 0.1 x10^3/uL (0.0-0.7) Basophils # (Auto) 0.0 x10^3/uL (0.0-0.2) Sodium Level 138 mmol/L (136-145) Potassium Level 4.2 mmol/L (3.5-5.1) Chloride Level 99 mmol/L (98-107) Carbon Dioxide Level 26 mmol/L (21-32) Anion Gap 13 (6-14) Blood Urea Nitrogen 18 mg/dL (7-20) Creatinine 1.0 mg/dL (0.6-1.0) Estimated GFR (Cockcroft-Gault) 52.6 BUN/Creatinine Ratio 18 (6-20) Glucose Level 121 mg/dL (70-99) Calcium Level 9.4 mg/dL (8.5-10.1) Magnesium Level 1.9 mg/dL (1.8-2.4) Total Bilirubin 0.6 mg/dL (0.2-1.0) Aspartate Amino Transf (AST/SGOT) 24 U/L (15-37) Alanine Aminotransferase (ALT/SGPT) 22 U/L (14-59) Alkaline Phosphatase 96 U/L (46-116) Troponin I Quantitative < 0.017 ng/mL (0.000-0.055) 0.084 ng/mL (0.000-0.055) Total Protein 7.5 g/dL (6.4-8.2) Albumin 4.1 g/dL (3.4-5.0) Albumin/Globulin Ratio 1.2 (1.0-1.7) Lipase 261 U/L (73-393) Glucose (Fingerstick) 120 mg/dL (70-99) Urine Collection Type Unknown Urine Color Yellow Urine Clarity Clear Urine pH 7.0 (<5.0-8.0) Urine Specific Squire <=1.005 (1.000-1.030) Urine Protein Negative mg/dL (NEG-TRACE) Urine Glucose (UA) Negative mg/dL (NEG) Urine Ketones (Stick) Trace mg/dL (NEG) Urine Blood Negative (NEG) Urine Nitrite Negative (NEG) Urine Bilirubin Negative (NEG) Urine Urobilinogen Dipstick 0.2 mg/dL (0.2 mg/dL) Urine Leukocyte Esterase Negative (NEG) Urine RBC Rare /HPF (0-2) Urine WBC Rare /HPF (0-4) Urine Squamous Epithelial Cells Few /LPF Urine Bacteria 0 /HPF (0-FEW) Triglycerides Level 53 mg/dL (0-150) Cholesterol Level 236 mg/dL (0-200) LDL Cholesterol, Calculated 122 mg/dL (0-100) VLDL Cholesterol, Calculated 11 mg/dL (0-40) Non-HDL Cholesterol Calculated 133 mg/dL (0-129) HDL Cholesterol 103 mg/dL (40-60) Cholesterol/HDL Ratio 2.3 Test 03/05/21 07:40 Troponin I Quantitative 0.069 ng/mL (0.000-0.055) Laboratory Tests Test 03/05/21 01:10 03/05/21 01:24 03/05/21 02:15 03/05/21 05:00 White Blood Count 5.5 x10^3/uL (4.0-11.0) Red Blood Count 4.18 x10^6/uL (3.50-5.40) Hemoglobin 12.9 g/dL (12.0-15.5) Hematocrit 38.0 % (36.0-47.0) Mean Corpuscular Volume 91 fL (79-100) Mean Corpuscular Hemoglobin 31 pg (25-35) Mean Corpuscular Hemoglobin Concent 34 g/dL (31-37) Red Cell Distribution Width 13.9 % (11.5-14.5) Platelet Count 294 x10^3/uL (140-400) Neutrophils (%) (Auto) 67 % (31-73) Lymphocytes (%) (Auto) 21 % (24-48) Monocytes (%) (Auto) 9 % (0-9) Eosinophils (%) (Auto) 2 % (0-3) Basophils (%) (Auto) 1 % (0-3) Neutrophils # (Auto) 3.7 x10^3/uL (1.8-7.7) Lymphocytes # (Auto) 1.2 x10^3/uL (1.0-4.8) Monocytes # (Auto) 0.5 x10^3/uL (0.0-1.1) Eosinophils # (Auto) 0.1 x10^3/uL (0.0-0.7) Basophils # (Auto) 0.0 x10^3/uL (0.0-0.2) Sodium Level 138 mmol/L (136-145) Potassium Level 4.2 mmol/L (3.5-5.1) Chloride Level 99 mmol/L (98-107) Carbon Dioxide Level 26 mmol/L (21-32) Anion Gap 13 (6-14) Blood Urea Nitrogen 18 mg/dL (7-20) Creatinine 1.0 mg/dL (0.6-1.0) Estimated GFR (Cockcroft-Gault) 52.6 BUN/Creatinine Ratio 18 (6-20) Glucose Level 121 mg/dL (70-99) Calcium Level 9.4 mg/dL (8.5-10.1) Magnesium Level 1.9 mg/dL (1.8-2.4) Total Bilirubin 0.6 mg/dL (0.2-1.0) Aspartate Amino Transf (AST/SGOT) 24 U/L (15-37) Alanine Aminotransferase (ALT/SGPT) 22 U/L (14-59) Alkaline Phosphatase 96 U/L (46-116) Troponin I Quantitative < 0.017 ng/mL (0.000-0.055) 0.084 ng/mL (0.000-0.055) Total Protein 7.5 g/dL (6.4-8.2) Albumin 4.1 g/dL (3.4-5.0) Albumin/Globulin Ratio 1.2 (1.0-1.7) Lipase 261 U/L (73-393) Glucose (Fingerstick) 120 mg/dL (70-99) Urine Collection Type Unknown Urine Color Yellow Urine Clarity Clear Urine pH 7.0 (<5.0-8.0) Urine Specific Squire <=1.005 (1.000-1.030) Urine Protein Negative mg/dL (NEG-TRACE) Urine Glucose (UA) Negative mg/dL (NEG) Urine Ketones (Stick) Trace mg/dL (NEG) Urine Blood Negative (NEG) Urine Nitrite Negative (NEG) Urine Bilirubin Negative (NEG) Urine Urobilinogen Dipstick 0.2 mg/dL (0.2 mg/dL) Urine Leukocyte Esterase Negative (NEG) Urine RBC Rare /HPF (0-2) Urine WBC Rare /HPF (0-4) Urine Squamous Epithelial Cells Few /LPF Urine Bacteria 0 /HPF (0-FEW) Triglycerides Level 53 mg/dL (0-150) Cholesterol Level 236 mg/dL (0-200) LDL Cholesterol, Calculated 122 mg/dL (0-100) VLDL Cholesterol, Calculated 11 mg/dL (0-40) Non-HDL Cholesterol Calculated 133 mg/dL (0-129) HDL Cholesterol 103 mg/dL (40-60) Cholesterol/HDL Ratio 2.3 Test 03/05/21 07:40 Troponin I Quantitative 0.069 ng/mL (0.000-0.055) Brief Hospital Course Ms. Addison is a 85 old female who presented with symptoms concerning for TIA. Consultation placed to Neurology. She had US bilateral carotids that showed atherosclerosis of the cervical ICAs with velocities consistent with less than 50 percent stenosis. MRI brain showed no acute intracranial finding; bilateral cerebral white matter changes, likely due to chronic small vessel disease; suspected small chronic lacunar infarct at the junction of the right basal ganglia and thalamus. She was discharged home with family care. Discharge Information Condition at Discharge: Stable Disposition/Orders: D/C to Home Scheduled Alprazolam (Alprazolam) 0.5 Mg Tablet, 1 TAB PO BID, #60 (Reported) Entered as Reported by: SURESH CALVILLO on 06/11/16129 Last Action: Continued on 03/05/211044 by INÉS WEINBERG MD Aspirin (Aspirin Ec) 81 Mg Tablet.dr, 81 MG PO DAILYWBKFT, #30 Prescribed by: RASHID LIRIANO MD on 09/22/16 1557 Last Action: Continued on 03/05/21 104 by INÉS WEINBERG MD Atorvastatin Calcium (Atorvastatin Calcium) 20 Mg Tablet, 1 TAB PO QHS, (Reported) Entered as Reported by: SURESH CALVILLO on 06/11/16129 Last Action: Continued on 03/05/211044 by INÉS WEINBERG MD Biotin (Biotin) 1 Mg Capsule, 1 TAB PO DAILY for supplement, (Reported) Entered as Reported by: ZELDA ESPAÑA on 12/30/192206 Fexofenadine Hcl (Clarisa Allergy) 180 Mg Tablet, 180 MG PO DAILY for allergies, (Reported) Entered as Reported by: ZELDA ESPAÑA on 12/30/192206 Fluticasone Propionate (Flonase Allergy Relief) 9.9 Ml Amberson.susp, 2 SPRAYS NS DAILY for sinus drainage, (Reported) Entered as Reported by: ZELDA ESPAÑA on 12/30/192206 Furosemide (Furosemide) 20 Mg Tablet, 1 TAB PO DAILY, #90 Ref 1 (Reported) Entered as Reported by: PERLA JO on 7/26/17 0336 Last Action: Continued on 03/05/211044 by INÉS WEINBERG MD Losartan Potassium (Losartan Potassium) 100 Mg Tablet, 100 MG PO DAILY, (Reported) Entered as Reported by: SURESH CALVILLO on 06/11/16129 Last Action: Converted on 03/05/211044 by INÉS WEINBERG MD Magnesium Oxide (Magnesium) 400 Mg Capsule, 1 CAP PO BID, #180 Ref 3 (Reported) Entered as Reported by: PERLA JO on 06/14/17335 Prednisone (Prednisone) 50 Mg Tablet, 1 TAB PO DAILY for COUGH for 7 Days, #7 Prescribed by: RAMÓN ROTH MD on 01/03/20 1345 Ranitidine Hcl (Ranitidine Hcl) 150 Mg Tablet, 150 MG PO BID for Heartburn, (Reported) Entered as Reported by: SUMAN HASSAN RN on 07/09/19 0836 Last Action: HELD on 03/05/211044 by INÉS WEINBERG MD Scheduled PRN Albuterol Sulfate (Proair Hfa Inhaler) 8.5 Gm Hfa.aer.ad, 2 PUFF INH Q4HRS PRN for SHORTNESS OF BREATH, #1 Prescribed by: PITER KIRAN MD on 09/25/16 1054 Alprazolam (Alprazolam) 0.25 Mg Tablet, 0.25 MG PO PRN DAILY PRN for ANXIETY / AGITATION, Ref 0 (Reported) Entered as Reported by: ZELDA ESPAÑA on 12/30/19 2314 Last Action: Continued on 03/05/211044 by INÉS WEINBERG MD Mag Hydrox/Al Hydrox/Simeth (Mag-Al Plus Xs Suspension) 30 Ml Oral.susp, 30 ML PO PRN Q4HRS PRN for HEARTBURN / GAS for 10 Days, #120 Prescribed by: RAMÓN ROTH MD on 01/03/20 1345 Miscellaneous Medications Ubidecarenone/Vit E Acetate (Co Q-10 100 Mg Softgel) 1 Each Capsule, 1 EACH PO, (Reported) Entered as Reported by: SURESH CALVILLO on 06/11/16129 Vitamin B Complex (B Complex) 1 Each Tablet, 1 EACH PO, (Reported) Entered as Reported by: SURESH CALVILLO on 06/11/16129 Justicifation of Admission Dx: Justifications for Admission: Justification of Admission Dx: Yes (TIA) INÉS WEINBERG MD Mar 05, 2021 16:33
--- NOTE | 2021-03-05 18:05 | NUR ---
Discharge Note: KATI BOWERS J6 [facility] Discharge instructions and discharge home medications reviewed with Patient and a copy given. All questions have been answered and understanding verbalized. The following instructions and handouts were given: Follow up with PCP in 1-[address] Alexander as needed and in 2 months. Discontinued IV lines and telemetry. Patient discharged home with self care.
[2021-03-05] MEDS ORDERED: ATORVASTATIN CALCIUM 20 MG TABLET PO SCH (21:00)
== END 2021-03-05 18:05 | disposition home or self-care (01) ==
LOC: ER 01:00 → 6 SOUTH 02:48
PROVIDERS: ADMIT Family Medicine; ATTEND Family Medicine
DX: G45.9 Transient cerebral ischemic attack, unspecified (principal); I25.10 Atherosclerotic heart disease of native coronary artery without angina pectoris; J44.9 Chronic obstructive pulmonary disease, unspecified; E78.5 Hyperlipidemia, unspecified; E78.00 Pure hypercholesterolemia, unspecified; J32.0 Chronic maxillary sinusitis; I25.2 Old myocardial infarction; K21.9 Gastro-esophageal reflux disease without esophagitis; M19.90 Unspecified osteoarthritis, unspecified site; M54.5 Low back pain; I13.0 Hypertensive heart and chronic kidney disease with heart failure and stage 1 through stage 4 chronic kidney disease, or unspecified chronic kidney disease; I50.9 Heart failure, unspecified; N18.9 Chronic kidney disease, unspecified; R29.700 NIHSS score 0; I73.9 Peripheral vascular disease, unspecified; I67.4 Hypertensive encephalopathy; F41.9 Anxiety disorder, unspecified; Z98.49 Cataract extraction status, unspecified eye; Z90.710 Acquired absence of both cervix and uterus; Z79.82 Long term (current) use of aspirin; Z87.891 Personal history of nicotine dependence; Z85.42 Personal history of malignant neoplasm of other parts of uterus; Z85.41 Personal history of malignant neoplasm of cervix uteri; Z85.828 Personal history of other malignant neoplasm of skin; Z95.5 Presence of coronary angioplasty implant and graft
CPT/HCPCS: 36415; 70450; 70551; 71045; 80053; 80061; 81001; 82962; 83690; 83735; 84484; 85025; 93005; 93880; 96361; 96372; 96374; 96375; 99285; G0378; J1650; J2405; J3490; J7030; G0379

== ENCOUNTER → 2021-03-25 | Outpatient (CLI) | payer OTHER ==
[2021-03-05 15:00] VITALS: BP 107/66
[2021-03-25] MEDS: REGADENOSON 0.4 MG/5 ML DISP.SYRIN. IV ONE (10:17)
--- NOTE | 2021-03-25 17:02 | CARD ---
MR#: [id number] Date of Study: 03/25/2021 Ordering Physician: ESTIVEN MAYES, Referring Physician: ESTIVEN MAYES, Tech: Emma Cornelius [facility] APPROVED REPORT EXAM: Two-dimensional and M-mode echocardiogram with Doppler and color Doppler. Other Information Quality : Good INDICATION Dyspnea on Exertion 2D DIMENSIONS RVDd2.3 (2.9-3.5cm)Left Atrium(2D)2.9 (1.6-4.0cm) IVSd1.1 (0.7-1.1cm)Aortic Root(2D)3.1 (2.0-3.7cm) LVDd3.8 (3.9-5.9cm)LVOT Diameter2.2 (1.8-2.4cm) PWd1.1 (0.7-1.1cm)LVDs2.8 (2.5-4.0cm) FS (%) 26.9 %SV33.5 ml LVEF(%)53.2 (>50%) Aortic Valve AoV Peak Jaun.117.3cm/sAoV VTI21.9cm AO Peak GR.5.5mmHgLVOT Peak Jaun.89.2cm/s LVOT VTI 18.61cmAO Mean GR.2mmHg NABEEL (VMAX)2.59di8VJP (VTI)3.31cm2 AI P 1/2 [id number] Mitral Valve MV E Sgngoxke89.5cm/sMV DECEL [id number] MV A Zebzoyyo474.9cm/sMV QHY41wt E/A Ratio0.6MVA (PHT)4.58cm2 TDI E/Lateral E'8.5E/Medial E'14.9 Tricuspid Valve TR P. Xefravln531pa/sRAP [id number] TR Peak Gr.18kmUkYLJF51uyIo Pulmonary Vein S1 Wxwnytoz41.1cm/sD2 Tximoisi99.9cm/s LEFT VENTRICLE The left ventricle is normal size. There is normal left ventricular wall thickness. Left ventricle sy stolic function is overall intact. The Ejection Fraction is 50-55%. There is slight hypokinesis in th e inferior wall. Transmitral Doppler flow pattern is Grade I-abnormal relaxation pattern. RIGHT VENTRICLE The right ventricle cavity is small. The right ventricular systolic function is normal. ATRIA The left atrium size is normal. The right atrium size is normal. The interatrial septum is intact wit h no evidence for an atrial septal defect or patent foramen ovale as noted on 2-D or Doppler imaging. AORTIC VALVE The aortic valve is mildly thickened but opens well. Doppler and Color Flow revealed mild aortic regu rgitation. There is no significant aortic valvular stenosis. MITRAL VALVE The mitral valve is calcified but opens well. There is no evidence of mitral valve prolapse. There is no mitral valve stenosis. Doppler and Color-flow revealed mild mitral regurgitation. TRICUSPID VALVE The tricuspid valve is normal in structure and function. Doppler and Color Flow revealed trace to mil d tricuspid regurgitation. The PA pressure was estimated at 33 mmHg. There is no tricuspid valve sten osis. PULMONIC VALVE The pulmonic valve is not well visualized. Doppler and Color Flow revealed no pulmonic valvular regur gitation. There is no pulmonic valvular stenosis. GREAT VESSELS The aortic root is normal in size. The ascending aorta is moderately to severely dilated at 4.5 cm. T he IVC is normal in size and collapses >50% with inspiration. PERICARDIAL EFFUSION There is no evidence of significant pericardial effusion. Critical Notification Critical Value: No <Conclusion> The left ventricle is normal size. Left ventricle systolic function is overall intact. The Ejection Fraction is 50-55%. There is slight hypokinesis in the inferior wall. Doppler and Color Flow revealed mild aortic regurgitation. There is no significant aortic valvular stenosis. Doppler and Color-flow revealed mild mitral regurgitation. Doppler and Color Flow revealed trace to mild tricuspid regurgitation. The PA pressure was estimated at 33 mmHg. The ascending aorta is moderately to severely dilated at 4.5 cm. Signed by : Estiven Mayes MD Electronically Approved : 03/25/2021 17:01:44
--- NOTE | 2021-03-25 17:20 | RAD ---
MR#: [id number] Date of Study: 03/25/2021 Ordering Physician: ESTIVEN MAYES, Referring Physician: FRANCIA MCKEON Tech: SAV Graham APPROVED REPORT Test Type: Pharmacological Stress Nurse/Tech: CAROL SARAVIA Test Indications: CAD Cardiac History: CAD, STENTS, HTN- SEE EMR Medications: SEE EMR Medical History: SEE EMR Resting ECG: SR W/PVC Resting Heart Rate: 77 bpm Resting Blood Pressure: 159/76mmHg Pretest Chest Pain: No chest pain Nurse/Tech Notes S1,S2, LUNGS CTA, DENIED CP OR SOA. VSS. Consent: The procedure was explained to the patient in lay terms. Informed consent was witnessed. Castro eout was entered into [employer]. History and Stress Test performed by Loyda Hartmann, FRANCIATCB, ARRT (R) (N) Pharm. Details Pharmacologic stress testing was performed using 0.4mg per 5ml of regadenoson given intravenously ove r 7-10 seconds. Stress Symptoms PT C/O SHORTNESS OF BREATH AND SLIGHT CHEST PRESSURE DURING TESTING. PT'S SYMPTOMS RESOLVED AFTER A F EW MINUTES. VSS. NO OTHER COMPLAINTS AT THIS TIME. POST EXERCISE Reason for Termination: Infusion complete Max HR: 114 bpm Max Blood Pressure: 162/73mmHg Blood Pressure response to exercise: Normal blood pressure response during stress. Heart Rate response to exercise: WNL Chest Pain: . "CHEST PRESSURE" Arrhythmia: . SR/ST W/ PVC'S NOTED DURING STRESS. INTERPRETATION Stress EKG Conclusion: The resting EKG shows a sinus rhythm with mild nonspecific ST-T wave changes a nd occasional PACs. The stress EKG shows no significant changes from baseline. No EKG evidence of stress-induced ischemia. Imaging Protocol IMAGE PROTOCOL: Rest Tc-99m/stress Tc-99m 1 day Rest: Stress: Viability: Radiopharm.Tc99m PuhtaddvpTx93l Sestamibi Nxod72gAl 31mCi Duration 15min. 13min. Img Date 03/25/2021 03/25/2021 Inj-Img Mmiw48mez. 60min. Rest Admin Site:IV - Left AntecubitalAdministrator:SAV Graham Stress Admin Site: IV - Left AntecubitalAdministrator: JOANNE Muñoz, ARRT (R)(N) STRESS DATA End Diast. Vol.80.0mlLVEDV index BSA47.0ml End Syst. Vol.36.0mlLVESV index BSA22.0ml Myocardial Qrec310.0gEject. Vzjvgdxk55.0% Stress Scores Regional WT1.00Summed WT14.00 Regional WM0.00Summed WM10.00 LV Perfusion The stress scans showed no significant defects. The rest scans showed no significant defects. Nuclear imaging shows no reversible ischemia or infarct. Wall Motion Left ventricular systolic function is minimally decreased with an ejection fraction of 49% and slight inferior septal hypokinesis. LV Perf. Quant 17 Seg. SSS0.00 17 Seg. SRS1.00 17 Seg. SDS0.00 Stress Defect Extent (% LAD)0.00Rest Defect Extent (% LAD)0.60Rev. Defect Extent (% LAD)0.00 Stress Defect Extent (% LCX) 0.00Rest Defect Extent (% LCX)0.00Rev. Defect Extent (% LCX)0.00 Stress Defect Extent (% RCA)0.00Rest Defect Extent (% RCA)0.00Rev. Defect Extent (% RCA)0.00 Stress Defect Extent (% TAINA)0.00Rest Defect Extent (% TAINA)0.20Rev. Defect Extent (% TAINA)0.00 Conclusion 1. No EKG evidence of stress-induced ischemia. 2. Nuclear imaging shows no reversible ischemia or infarct. 3. Minimally decreased LV ejection fraction at 49%. 4. Moderately low risk Lexiscan nuclear stress test. Signed by : Estiven Mayes MD Electronically Approved : 03/25/2021 17:19:26
== END ==
LOC: NM 08:22
PROVIDERS: ATTEND Internal Medicine Cardiovascular Disease
DX: I08.3 Combined rheumatic disorders of mitral, aortic and tricuspid valves (principal); I10 Essential (primary) hypertension
CPT/HCPCS: 78452; 93017; 93306; A9500; J2785

== ENCOUNTER 2021-07-14 22:31 | Emergency (ER) | payer OTHER ==
[~2021-07-14] VITALS: Ht 157.5 cm; Wt 70.0 kg
[2021-07-14 23:19] LABS: BASO % 1 % (0-3); EOS # 0.1 x10^3/uL (0.0-0.7); EOS % 1 % (0-3); HEMATOCRIT 36.4 % (36.0-47.0); HEMOGLOBIN 12.6 g/dL (12.0-15.5); LYMPH # 0.7 x10^3/uL (1.0-4.8); LYMPH % 12 % (24-48); MEAN CORPUSCULAR HEMOGLOBIN 31 pg (25-35); MEAN CORPUSCULAR HGB CONC 35 g/dL (31-37); MEAN CORPUSCULAR VOLUME 90 fL (79-100); MONO # 0.3 x10^3/uL (0.0-1.1); MONO % 6 % (0-9); NEUT # 4.6 x10^3/uL (1.8-7.7); NEUT % 81 % (31-73); PLATELET COUNT 267 x10^3/uL (140-400); RED BLOOD COUNT 4.05 x10^6/uL (3.50-5.40); RED CELL DISTRIBUTION WIDTH 15.3 % (11.5-14.5); WHITE BLOOD COUNT 5.7 x10^3/uL (4.0-11.0)
--- NOTE | 2021-07-14 23:23 | PHYS DOC ---
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 Past Surgical History: Hysterectomy, Other Additional Past Surgical Histo: PTCA W/ STENTS X3 2007 Smoking Status: Former Smoker Alcohol Use: None Drug Use: None General Adult EDM: Chief Complaint: Cough, wheezing, shortness of breath HPI: HPI: 85-year-old female presents to the emergency department complaining of several days of cough, wheezing, shortness of breath as well as nausea, vomiting and diarrhea, no definitive fevers or chills no, the patient is unvaccinated unf ortunately to COVID-19, no neck stiffness or photophobia, no focal numbness weakness/tingling, no falls or injuries, no chest pain, no abdominal pain at this time, no blood in stool, no urinary symptoms Review of Systems: Review of Systems: General: no fevers , no chills, no general weakness Eyes: no blurred vision, no diplopia Skin: no rashes Neck: no swelling, no neck stiffness, no neck pain Heme: no bleeding, no lymph node enlargement Ear/Nose/Throat: No sore throat, no runny nose, no hearing loss, no difficulty swallowing Cardiovascular: no Chest pain, no palpitations Respiratory: + dyspnea, + cough, no hemoptysis Gastrointestinal: No abdominal pain, + nausea, + vomiting, +diarrhea, no blood in stool Genitourinary: no dysuria, no hematuria Musculoskeletal: no back pain, no leg pain, no arm pain, no arthralgia Neurologic: no headaches, no dizziness, no focal numbness/tingling, no focal weakness Psych: no depression, no anxiety, no SI/HI *All review of systems are negative other than what is noted above Heart Score: C/O Chest Pain: No Risk Factors: Risk Factors: DM, Current or recent (<one month) smoker, HTN, HLP, family history of CAD, obesity. Risk Scores: Score 0 - 3: 2.5% MACE over next 6 weeks - Discharge Home Score 4 - 6: 20.3% MACE over next 6 weeks - Admit for Clinical Observation Score 7 - 10: 72.7% MACE over next 6 weeks - Early Invasive Strategies Current Medications: Current Medications Medications (Trade) Dose Ordered Sig/Bo Start Time Stop Time Status Last Admin Dose Admin Dexamethasone Sodium Phosphate (Decadron) 10 mg 1X ONCE 07/14/21 23:30 07/14/21 23:31 Lorazepam (Ativan Inj) 1 mg 1X ONCE 07/14/21 23:30 07/14/21 23:31 Ondansetron HCl (Zofran) 4 mg 1X ONCE 07/14/21 23:30 07/14/21 23:31 Allergies: Allergies: Allergies Coded Allergies Type Severity Reaction Last Updated Verified amlodipine Allergy Intermediate 02/25/21 Yes codeine Allergy Intermediate 02/25/21 Yes lisinopril Allergy Intermediate 02/25/21 Yes Physical Exam: PE: Gen-well appearing, no acute distress Head: Normocephalic/Atraumatic ENT: atraumatic, PERRLA, EOMI, oropharynx clear Neck: supple, full ROM/strength, no JVD, no nuchal rigidity Lungs: no distress, speaks in full sentences, Clear to auscultation bilaterally CV: reg rate, rhythm, no murmus/rubs/gallops, peripheral pulses equal in all extremities Abdomen: soft/nontender, no guarding/rebound tenderness, no rigidity, non distended, normoactive bowel sounds Musculoskeletal: full ROM/strength in all extremities, atraumatic, no swelling Back: full range of motion/strength Skin: intact, no rashes Lymph: no gross GINGER Neuro: alert and oriented x 4, CN 2-12 grossly intact, Motor strength is 5/5 in all extremities, no focal sensory deficits, no focal ataxia, ambulatory with steady gait Psych: normal mood/affect Current Patient Data: Labs: Laboratory Tests Test 07/14/21 23:12 White Blood Count 5.7 x10^3/uL (4.0-11.0) Red Blood Count 4.05 x10^6/uL (3.50-5.40) Hemoglobin 12.6 g/dL (12.0-15.5) Hematocrit 36.4 % (36.0-47.0) Mean Corpuscular Volume 90 fL (79-100) Mean Corpuscular Hemoglobin 31 pg (25-35) Mean Corpuscular Hemoglobin Concent 35 g/dL (31-37) Red Cell Distribution Width 15.3 % (11.5-14.5) H Platelet Count 267 x10^3/uL (140-400) Neutrophils (%) (Auto) 81 % (31-73) H Lymphocytes (%) (Auto) 12 % (24-48) L Monocytes (%) (Auto) 6 % (0-9) Eosinophils (%) (Auto) 1 % (0-3) Basophils (%) (Auto) 1 % (0-3) Neutrophils # (Auto) 4.6 x10^3/uL (1.8-7.7) Lymphocytes # (Auto) 0.7 x10^3/uL (1.0-4.8) L Monocytes # (Auto) 0.3 x10^3/uL (0.0-1.1) Eosinophils # (Auto) 0.1 x10^3/uL (0.0-0.7) Basophils # (Auto) 0.0 x10^3/uL (0.0-0.2) Laboratory Tests 07/14/21 23:12 Vital Signs: Vital Signs Date Time Temp Pulse Resp B/P (MAP) Pulse Ox O2 Delivery O2 Flow Rate FiO2 07/14/21 22:48 98.3 94 34 210/92 (80) 99 Room Air 98.3 EKG: EKG: EKG done at 2335pm, NSR rate is 71, non ischemic appearing EKG with normal axis and intervals [] Radiology/Procedures: Radiology/Procedures: [] Course & Med Decision Making: Course & Med Decision Making Pertinent Labs and Imaging studies reviewed. (See chart for details) [] 85-year-old female presenting to the ER with multiple complaints although I am suspicious about possible COVID-19 given that she is unvaccinated, she appears to be neurologically intact, no focal findings, my suspicion for any stroke or any intracranial bleed, mass lesion or meningitis is very low, will get a head CT at an abundance of caution I will get a rapid Covid test, labs, chest x-ray, differential includes but not limited to pneumonia, COVID-19, UTI, unlikely any acute intra-abdominal pathology, unlikely any acute coronary syndrome or PE, will closely monitor, reevaluate, reexamine her during work-up to determine the best course of action as we get more data available Reevaluation 2:11 AM: Patient is feeling better, her work-up was negative, although the x-ray did show patchy interstitial infiltrates consistent likely with COVID-19 infection, unfortunately cannot get a rapid test back but her O2 sat is 96% on room air, neurologically intact, head CT negative and I believe stable for discharge at this time Patient was seen in the ED for viral syndrome consistent with likely COVID-19 infection, pending the swab result but the work-up here is otherwise negative and she clinically improved, there is no apparent evidence of any emergency medical pathology at this time, patient was advised follow-up with their primary care provider /physician in the next 24-48 hours and to return to the ED before then if any new or worsening / concerning symptoms had developed. All questions and concerns were addressed at time of disposition She also had elevated blood pressure on arrival and I advised her to get seen by her primary care doctor in the next 48 hours as well about that Jean Disclaimer: Jean Disclaimer: This electronic medical record was generated, in whole or in part, using a voice recognition dictation system. Departure Departure Impression: Primary Impression: Dyspnea Qualified Codes: R06.00 - Dyspnea, unspecified Additional Impression: Viral syndrome Disposition: HOME / SELF CARE / HOMELESS Condition: IMPROVED Referrals: JOAQUIN ODOM MD (PCP) 1-2 days Patient Instructions: Viral Syndrome Additional Instructions: Her x-ray is consistent with likely COVID-19 infection, unfortunately we will not get the swab result back until the morning time, the meantime I will start her on some antibiotics and steroids to be on the safe side, she is to follow-up with her primary care doctor in the next 24 hours, the rest of her tests are fine, nothing to be concerned about but her blood pressure was elevated, it should be less than 140/90, however see her primary care doctor the next 1 to 2 days and bring her back to the ER before then if any new or worsening/concerning symptoms develop Scripts Azithromycin (ZITHROMAX TRI-WELLINGTON) 500 Mg Tablet 1 TAB PO DAILY, #3 TAB Prov: HERBERT HERBERT MD 07/15/21 Methylprednisolone (MEDROL) 4 Mg Tab.ds.pk 1 PKG PO UD for inflammation, #1 PKG Prov: HERBERT HERBERT MD 07/15/21 HERBERT HERBERT MD Jul 14, 2021 23:23
[2021-07-14 23:30] LABS: GFR 52.6; POTASSIUM 3.6 mmol/L (3.5-5.1)
[2021-07-14] MEDS ORDERED: ONDANSETRON PF 4 MG/2 ML VIAL. IVP ONE (23:30)
[2021-07-14] MEDS ORDERED: DEXAMETHASONE SOD PHOS 4 MG/ML VIAL IVP ONE (23:30)
[2021-07-14 23:38] LABS: ALBUMIN 3.8 g/dL (3.4-5.0); ALBUMIN/GLOBULIN RATIO 1.3 (1.0-1.7); TOTAL BILIRUBIN 0.5 mg/dL (0.2-1.0); TOTAL PROTEIN 6.8 g/dL (6.4-8.2)
--- NOTE | 2021-07-15 00:07 | RAD ---
PQRS Compliance Statement: One or more of the following individualized dose reduction techniques were utilized for this examinat ion: 1. Automated exposure control 2. Adjustment of the mA and/or kV according to patient size 3. Use of iterative reconstruction technique CT HEAD WITHOUT CONTRAST History: Reason: headache / Spl. Instructions: / History: Comparison: CT head without contrast March 05, 2021. Technique: Axial images are obtained of the head from the skull base through the vertex without IV co ntrast. Findings: No mass-effect, midline shift, extra-axial fluid collection, hemorrhage, or obvious acute infarction is identified. Basilar cisterns are patent. The ventricles and sulci are prominent, consistent with age-related cerebral atrophy. There is perive ntricular white matter hypoattenuation. This is a nonspecific finding but is commonly due to chronic small vessel ischemic disease. Bone windows demonstrate no acute calvarial abnormality.. Medial deviation of the left lamina papyrac ea may be congenital or due to old injury. There is rightward deviation of the bony nasal septum. Visualized right maxillary sinus is completely opacified. Mastoid air cells are well aerated. IMPRESSION: 1. No acute intracranial abnormality. 2. Age-related cerebral atrophy and moderate periventricular white matter changes probably due to ch ronic small vessel ischemic disease. Electronically signed by: Yossi Perez MD (07/15/2021 12:04 AM) [facility]
--- NOTE | 2021-07-15 00:10 | RAD ---
XR CHEST 1V Clinical History: Reason: cough / Spl. Instructions: / History: Technique: AP view of the chest was obtained at 07/14/2021 11:10 PM. Comparison: March 05, 2021. Findings: The heart is normal size. The pulmonary vessels appear normal. There is reticular opacities of lungs. This calcified granuloma in the mediastinum and right hilum. Impression: Increasing reticular opacities throughout the lungs suggests possible atypical pneumonia superimposed on chronic pulmonary fibrosis. Electronically signed by: Adam Jha III, MD (07/15/2021 12:07 AM) [facility]
[2021-07-15] MEDS ORDERED: cloNIDine HCL 0.1 MG TABLET PO ONE (01:00)
[2021-07-15] MEDS ORDERED: METH4TAB2 PO (02:13)
[2021-07-15] MEDS ORDERED: AZIT500T2 PO (02:13)
[2021-07-15 02:45] VITALS: BP 176/73
--- NOTE | 2021-07-15 05:03 | EKG ---
[facility] [address] [place] [address] Test Date: 2021-07-14 Test Time: 23:35:56 Pat Name: KATI BOWERS Department: Room: Gender: F [employer] Machine: : [id number] Requested By: HERBERT HERBERT Order Number: [id number] Reading MD: Measurements Intervals [place] Rate: 90 P: 71 VA: 144 QRS: 32 QRSD: 100 T: 13 QT: 388 QTc: 479 Interpretive Statements No previous ECG available for comparison
--- NOTE | 2021-07-15 17:54 | NUR ---
IP: Informed pt of negative covid test. Pt verbalized understanding.
== END 2021-07-15 02:45 | disposition home or self-care (01) ==
LOC: ER 22:31
DX: B34.9 Viral infection, unspecified (principal); Z20.822 Contact with and (suspected) exposure to COVID-19; R06.02 Shortness of breath; R06.2 Wheezing; R51.9 Headache, unspecified; J44.9 Chronic obstructive pulmonary disease, unspecified; E78.00 Pure hypercholesterolemia, unspecified; I10 Essential (primary) hypertension; Z87.891 Personal history of nicotine dependence; Z90.710 Acquired absence of both cervix and uterus; Z95.5 Presence of coronary angioplasty implant and graft; Z88.1 Allergy status to other antibiotic agents; Z88.5 Allergy status to narcotic agent; Z88.8 Allergy status to other drugs, medicaments and biological substances
CPT/HCPCS: 36415; 70450; 71045; 80053; 83880; 84484; 85025; 93005; 96374; 96375; 99285; J1100; J2060; J2405; U0003; U0005